=== PATIENT | male | born 1960 | race Caucasian/White ===

== ENCOUNTER 2016-07-30 13:39 | Inpatient (IN) | payer OTHER ==
[~2016-07-30] VITALS: Ht 180.3 cm; Wt 84.1 kg
[2016-07-30 13:43] VITALS: BP 136/89; PULSE 114; RESP 18; O2SAT 100
--- NOTE | 2016-07-30 15:09 | ED.REPORT ---
HPI-General Illness Date of Service Jul 30, 2016 ED Provider: Dr. Ricky Torres M.D. The patient is a 56 year old male with a history of diabetes, hypertension, hepatitis C, CAD, CHF, and polysubstance abuse s/p recent right toe amputations who presents to the ED with an open right foot surgical wound onset 2.5 weeks ago. The patient was recently admitted to [facility] on 07/10/16 with osteomyelitis and gangrene of his right toes. On 07/12 he underwent amputation of his right 2nd and 3rd toes and then had two subsequent surgeries for debridement and irrigation. Four days ago the patient left AMA from [facility] with his wound still open, due to a conflict with the infectious disease doctor there. [facility] and was referred here to the ED. The patient currently reports "sharp" pain at the surgical wound rated "11/10" at worst, without radiation, relieved with rest. He denies fever, chills, chest pain, SOB, nausea, vomiting, abdominal pain, hematochezia, hematuria, SI, HI, hallucinations, or other symptoms. The patient has been drinking alcohol and using methamphetamines "to control the pain" since he left the hospital. His last alcohol drink and methamphetamine use was last night. Nursing Notes Stated Complaint: FOOT WOUND Chief Complaint: Extremity Trauma Nursing Notes Reviewed: Yes Allergies: Coded Allergies: codeine (Verified Adverse Reaction, Unknown, 07/30/16) Scheduled Amiodarone (Amiodarone) 200 Mg Tablet 200 MG PO QAM Apixaban (Eliquis) 5 Mg Tablet 5 MG PO BID Aspirin Chew (Aspirin Chew) 81 Mg Chew 81 MG PO QAM Carvedilol (Carvedilol) 3.125 Mg Tablet 3.125 MG PO BID Digoxin (Digoxin) 125 Mcg Tablet 125 MCG PO QAM Famotidine (Famotidine) 20 Mg Tablet 20 MG PO BIDWM Furosemide (Furosemide) 40 Mg Tablet 40 MG PO QAM Glipizide (Glipizide) 5 Mg Tablet 5 MG PO DAILYWM Hydralazine (Hydralazine) 25 Mg Tablet 25 MG PO TID Isosorbide DN (Isosorbide DN) 10 Mg Tablet 10 MG PO TID Lisinopril (Lisinopril) 20 Mg Tablet 20 MG PO QAM Lovastatin (Lovastatin) 40 Mg Tablet 40 MG PO HS Metformin (Glucophage) 1,000 Mg Tablet 1,000 MG PO BIDWM Olanzapine ODT (Olanzapine ODT) 5 Mg Tablet 5 MG PO HS Polyethylene Glycol 3350 (Polyethylene Glycol 3350) 17 Gm Powd.pack 17 GM PO QAM Potassium Chloride (Potassium Chloride) 20 Meq/15 Ml Liquid 20 MEQ PO QAM Sennosides/Docusate Sodium (Senna-Docusate Sodium Tablet) 1 Each Tablet 1 EACH PO BID Spironolactone (Spironolactone) 25 Mg Tablet 25 MG PO QAM Scheduled PRN Acetaminophen (Acetaminophen) 325 Mg Tablet 650 MG PO Q4H PRN PRN For Fever Albuterol HFA (Proair HFA) 8.5 Gm Hfa.aer.ad 6-8 PUFFS INHALATION Q2H PRN PRN For Shortness of Breath Bisacodyl (Dulcolax Rectal) 10 Mg Supp.rect 10 MG RC DAILY PRN PRN For Constipation Dextran 70/Hypromellose/Pf (Artificial Tears Drops) 1 Each Droperette 1 DROP BOTH_EYES QID PRN PRN DRY EYES Dextrose (Glucose) 4 Gm Tab.chew 4 GM PO ASDIRECTED PRN PRN HYPOGLYCEMIA Insulin Human Lispro (HumaLOG U100 Insulin Vial) 100 Unit/Ml Unit 3-6 UNIT SUBQ TIDWM PRN PRN HYPERGLYCEMIA Check blood sugars before meals and at bedtime. Use correction factor only before meals. Blood Sugar Lispro Correction: <151, 0 units; 151-175, 1 unit; 176-200, 2 units; 201-225, 3 units; 226-250, 4 units; 251-275, 5 units; 276-300 , 6 units; 301-325, 7 units; 326-350, 8 units; 351-375, 9 units; 376-400, 10 units; >400, 12 units. Melatonin (Melatonin) 5 Mg Tablet 5 MG PO HS PRN PRN For Insomnia Nicotine 21 mg/24 hr Patch (Nicotine 21 mg/24 hr Patch) 1 Each Patch.dysq 1 PATCH TRANSDERM DAILY PRN PRN For Withdrawal Symptoms Nystatin (Nystatin) 15 Gm Powder 1 APPLIC TP QID PRN PRN RASH Olanzapine ODT (Olanzapine ODT) 5 Mg Tablet 5 MG PO Q6H PRN PRN For Anxiety or Agitation General Time Seen by MD: 15:08 Chief Complaint Other (Right Foot Wound) Hx Obtained From: Patient Arrived By: Walk-in Sudden in Onset?: No Onset Occurred: More than a week ago... (2.5 weeks ago) Symptom Duration: Since onset Location: : Foot right Quality: Painful, Sharp Severity: Current: Moderate Severity: Maximum: Severe Pertinent Negative: Relieved by nothing Context Related History: Reports Coronary artery disease, Reports Diabetes mellitus, Reports Drug use/abuse suspected Recent Healthcare: Recent hospitalization, Previous surgery Past Medical History Past Medical History Diabetes Mellitus Hepatitis C CAD Polysubstance abuse Systolic CHF Atrial flutter Hypertension Past Surgical History Right 2nd and 3rd toe amputations Mandible fracture surgery Hernia repair Family History Heart failure and diabetes Smoking History Current Every Day Smoker Social History Prior alcohol abuse Drug Use: Meth Other Social History: From out of [facility] ([place] Ambulatory Status Independent Review of Systems + Right foot wound Full Review of Systems Constitutional: Denies: Chills, Fever Respiratory: Denies: Shortness of breath Cardiovascular: Denies: Chest pain GI: Denies: Constipation, Diarrhea, Hematochezia, Nausea, Vomiting Male: Denies Hematuria Musculoskeletal: Reports: Extremity pain (Right Foot) Psychiatric: Denies: Hallucinations, auditory, Hallucinations, visual, Homicidal ideation, Suicidal ideation Complete sys rev & neg: except as marked. Physical Exam Constitutional: Disheveled, though nontoxic appearing. Not diaphoretic. Head: Normocephalic and atraumatic. Mouth/Throat: Oropharynx is clear and moist. No oropharyngeal exudate. Eyes: EOM are normal. Pupils are equal, round, and reactive to light. Neck: Supple, no tracheal deviation. Cardiovascular: Tachycardic. Regular rhythm. II/ systolic murmur. Equal and intact distal pulses throughout. Pulmonary/Chest: Effort normal and breath sounds normal. No respiratory distress. Abdominal: Soft. No distension. There is no tenderness, rebound, or guarding. Neurological: AOx3. Grossly nonfocal exam. Strength and sensation intact and equal to bilateral upper and lower extremities. Vital Signs Vital Signs Date Time Temp Pulse Resp B/P Pulse Ox O2 Delivery O2 Flow Rate FiO2 07/30/16 19:15 36.8 108 133/92 95 Room Air 07/30/16 16:20 36.9 108 131/90 97 Room Air 07/30/16 13:43 35.8 114 18 136/89 100 Room Air Initial VS: Reviewed Lower Extremity / Pelvis / MS: Neurologic intact, Vascular intact Obvious open wound to dorsum of right foot extending to where the 2nd and 3rd toes would be Some necrotic tissue present Mild amount of surrounding erythema without streaking up the leg Trace pitting edema bilateral lower extremities Skin: Warm, Dry Psychiatric: Not suicidal, Not homicidal, No hallucinations Interpretation & Diagnostics Bedside Blood Glucose at 15:25 292 mg/dl (80-150) H Lab Results Interpretation Result Diagram: 07/30/16 1623 07/30/16 1623 Test 07/30/16 16:23 White Blood Count 12.6th/mm3 (3.8-10.1) Red Blood Count 4.11mil/mm3 (4.40-5.80) Hemoglobin 11.3g/dL (13.8-17.2) Hematocrit 34.1% (41.0-50.0) Mean Corpuscular Volume 83.0fL (81-100) Mean Corpuscular Hemoglobin 27.5pg (27.0-35.0) Mean Corpuscular Hemoglobin Concent 33.1% (32.0-37.0) Red Cell Distribution Width 17.1% (12.3-15.4) Platelet Count 280bil/L (150-400) Neutrophils (%) (Auto) 66.1% (40-74) Lymphocytes (%) (Auto) 20.6% (14-46) Monocytes (%) (Auto) 8.1% (4-12) Eosinophils (%) (Auto) 4.6% (0-5) Basophils (%) (Auto) 0.3% (0-3) Erythrocyte Sedimentation Rate 41mm/hr (0-30) Prothrombin Time 10.0sec (8.1-12.5) Prothromb Time International Ratio 0.94ratio Activated Partial Thromboplast Time 27.7sec (22.8-33.0) Sodium Level 132mEq/L (134-144) Potassium Level 3.6mEq/L (3.5-5.2) Chloride Level 98mEq/L (97-108) Carbon Dioxide Level 22mmol/L (18-29) Blood Urea Nitrogen 11mg/dL (6-24) Creatinine 0.60mg/dL (0.76-1.27) Estimat Glomerular Filtration Rate 148mL/min (>59) Glucose Level 307mg/dL (60-99) Lactic Acid Level 1.5mmol/L (0.4-2.0) Calcium Level 10.0mg/dL (8.5-10.1) Phosphorus Level 2.5mg/dL (2.5-4.9) Magnesium Level 1.5mg/dL (1.6-2.6) Total Bilirubin 0.4mg/dL (0.0-1.2) Aspartate Amino Transf (AST/SGOT) 38U/L (0-50) Alanine Aminotransferase (ALT/SGPT) 24U/L (0-44) Alkaline Phosphatase 154U/L (25-150) Troponin T 0.302ug/L (0.0-0.011) C-Reactive Protein 1.3mg/dL (0.0-0.5) Total Protein 7.2g/dL (6.4-8.4) Albumin 3.3g/dL (3.4-5.0) Lipase 53U/L (13-60) ECG Interpretation ECG Interpretation: Sinus tachycardia rate 107 Nonspecific repol abnormality, diffuse leads Flattened T-waves leads V4 - V6 Time: 16:28 Interpreted by: ED physician X-Ray Interpretation Xray Interpretation: IMPRESSION: 1. A small linear metallic foreign body in the great toe. 2. Amputation of the second third toes. 3. Radiographs are not sensitive for early phase of osteomyelitis. If there is high clinical suspicion for osteomyelitis, a triple phase bone scan is suggested for further evaluation. Dictated by: Ryland Bone M.D. on 07/30/2016 at 16:14 Study Performed: 3 View X-Ray Ordered: Foot right Interpretation / Wet Read by: Interpret - Radiologist Re-Eval/Medical Decision Med Decision/Clinical Course In summary, 56-year-old male with a complex past medical history including hepatitis C, coronary disease, CHF, diabetes, and recently diagnosed osteomyelitis of the right foot in the setting of amputation of the second and third toes presenting to the ED for evaluation of pain to his right foot and concerned that his wound is not healing. He recently left AMA from [facility] in [place] while undergoing treatment for these problems. Upon arrival here, patient is afebrile, nontoxic appearing. No systemic symptoms would suggest hematogenous spread for now, however presumably he has only partially treated this infection. Started on broad spectrum abx in the ED. labs above, reviewed troponin is elevated, however patient has no chest pain, no shortness of breath, no chest pressure and his most recent troponin at [facility] in [place] was higher than this one. EKG does have some T-wave abnormalities, however given the absence of symptoms and the lower level, suspect that there is some level of demand present here; having said that, these will need to be trended and reassessed. Consults as per below; appreciate recs. Will admit for further eval and mgmt. patient agreeable to the plan as stated, no further questions. Source of Hx: Old records Time of Eval: 15:45 Patient Status: Condition improved Re-Evaluation/Progress Note: Discussed with patient physical exam findigns, diagnosis, and plan for labs, x-ray, and admit. Patient agrees with plan for care and all questions were addressed. Consultation #1: Referral / Consult Name: David Kimble DO Consulted With: Orthopedic Call Returned at: 16:05 Fabric Pattern Grader: Referred to other consult (Podiatry and/or Surgery) Consultation #2: Referral / Consult Name: Phoebe Vaz DPM Call Returned at: 16:09 Fabric Pattern Grader: Agrees with eval, Agrees with plan Note: Podiatry: Will consult Consultation #3: Referral / Consult Name: Gary Rankin MD Consulted With: Hospitalist Call Returned at: 19:05 Fabric Pattern Grader: Agrees with eval, Agrees with plan, Accepts admit Counseled Regarding: Diagnosis, Need for admission Discharge & Departure Primary Impression: Osteomyelitis of right foot Osteomyelitis type: other acute Qualified Code: M86.171 - Other acute osteomyelitis, right ankle and foot Additional Impression: NSTEMI (non-ST elevation myocardial infarction) Disposition: ADMITTED TO HOSPITAL Discharge Condition All VS Reviewed: Yes Condition: Improved Referrals: Deric White MD (PCP) Scribe Attestation Portions of this note were transcribed by Bettina Downs. I, Dr. Torres, personally performed the history, physical exam, and medical decision-making; I reviewed and confirmed the accuracy of the information in the transcribed note. Signed by: Claudine Barillas, 07/30/2016, 19:55 copies to: Deric White MD, William B MD Jul 30, 2016 15:09 BETTINA DOWNS Jul 30, 2016 15:19
[2016-07-30] MEDS ORDERED: 0.9% Sodium Chloride 1,000 ML IV ONE (15:44)
--- NOTE | 2016-07-30 16:18 | DRSVH ---
PROCEDURE: X-RAY RIGHT FOOT COMPLETE, MINIMUM THREE VIEWS ([id number]) INDICATIONS: hx of osteo eval for similar, other abnl TECHNIQUE: 3 views of the foot were acquired. COMPARISON: None. FINDINGS: Bones: Note is made of amputation of the second and third toe across the mid metatarsals. No fractur es or dislocations. No suspicious bony lesions. Soft tissues: No tibiotalar joint effusion. Achilles tendon appears normal. There is a small linea r metallic from body in the distal great toe. IMPRESSION: 1. A small linear metallic foreign body in the great toe. 2. Amputation of the second third toes. 3. Radiographs are not sensitive for early phase of osteomyelitis. If there is high clinical suspicio n for osteomyelitis, a triple phase bone scan is suggested for further evaluation. Dictated by: Ryland Bone M.D. on 07/30/2016 at 16:14 Approved by: Ryland Bone M.D. on 07/30/2016 at 16:16
[2016-07-30 16:20] VITALS: BP 131/90; PULSE 108; O2SAT 97
[2016-07-30 16:40] LABS: BASOPHILS % (AUTO) 0.3 % (0-3); EOSINOPHILS % (AUTO) 4.6 % (0-5); MONOCYTES % (AUTO) 8.1 % (4-12); Mean Corpuscular Hemoglobin 27.5 pg (27.0-35.0); NEUTROPHILS % (AUTO) 66.1 % (40-74); Platelet Count 280 bil/L (150-400)
[2016-07-30 16:58] LABS: INR 0.94 ratio
[2016-07-30 17:18] LABS: ERYTHROCYTE SEDIMENTATION RATE 41 mm/hr (0-30); TROPONIN T 0.302 ug/L (0.0-0.011)
[2016-07-30 17:19] LABS: Magnesium 1.5 mg/dL (1.6-2.6); Phosphorus 2.5 mg/dL (2.5-4.9)
[2016-07-30] MEDS ORDERED: METF1000 PO (18:29)
[2016-07-30] MEDS ORDERED: DEXT4TAB PO (18:29)
[2016-07-30] MEDS ORDERED: CARV3.122 PO (18:29)
[2016-07-30] MEDS ORDERED: NYST15PO5 TP (18:29)
[2016-07-30] MEDS ORDERED: GLPZ5T PO (18:29)
[2016-07-30] MEDS ORDERED: LISI-567 PO (18:29)
[2016-07-30] MEDS ORDERED: ISOS10TA2 PO (18:29)
[2016-07-30] MEDS ORDERED: AMIO200T PO (18:29)
[2016-07-30] MEDS ORDERED: ASPI81TA3 PO (18:29)
[2016-07-30] MEDS ORDERED: SENN1TAB90 PO (18:29)
[2016-07-30] MEDS ORDERED: POTA20LI2 PO (18:29)
[2016-07-30] MEDS ORDERED: SPIR25TA3 PO (18:29)
[2016-07-30] MEDS ORDERED: ACET325T51 PO (18:29)
[2016-07-30] MEDS ORDERED: INSLIS SUBQ (18:29)
[2016-07-30] MEDS ORDERED: DIGO125T73 PO (18:29)
[2016-07-30] MEDS ORDERED: BISA10SU61 RC (18:29)
[2016-07-30] MEDS ORDERED: FAMO20TA4 PO (18:29)
[2016-07-30] MEDS ORDERED: OLAN5TAB39 PO ×2 (18:29)
[2016-07-30] MEDS ORDERED: FURO40TA4 PO (18:29)
[2016-07-30] MEDS ORDERED: APIX5TAB PO (18:29)
[2016-07-30] MEDS ORDERED: POLY17PO2 PO (18:29)
[2016-07-30] MEDS ORDERED: LOVA40TA PO (18:29)
[2016-07-30] MEDS ORDERED: ALBU8.5H2 INHALATION (18:29)
[2016-07-30] MEDS ORDERED: HYDR-3939 PO (18:29)
[2016-07-30] MEDS ORDERED: DEXT1DRO8 BOTH_EYES (18:29)
[2016-07-30] MEDS ORDERED: Ketorolac 15 mg/mL Inj IVPUSH ONE (18:35)
[2016-07-30] MEDS ORDERED: NICO1PAT16 TRANSDERM (18:37)
[2016-07-30] MEDS ORDERED: MELA1TAB16 PO (18:37)
[2016-07-30] MEDS ORDERED: MELA5TAB14 PO (18:38)
[2016-07-30] MEDS ORDERED: Piperacillin-Tazo 3.375 Gm Inj 3.375 GM in Dextrose 5% Minibag Plus 50 ML IV ONE (19:10)
[2016-07-30] MEDS ORDERED: metroNIDAZOLE Inj 500 MG in IV Premix 1 EACH IV ONE (19:10)
[2016-07-30] MEDS ORDERED: Vancomycin Dose per Pharmacist XX ONE ×2 (19:10→20:15)
[2016-07-30 19:15] VITALS: BP 133/92; PULSE 108; O2SAT 95
[2016-07-30] MEDS ORDERED: Vancomycin Inj 1,500 MG in 0.9% Sodium Chloride 500 ML IV ONE (19:20)
[2016-07-30] MEDS ORDERED: 0.9% Sodium Chloride 1,000 ML IV SCH (20:13)
[2016-07-30] MEDS ORDERED: Polyethylene Glycol (PEG) 17 Gm Powder PO PRN (20:15)
[2016-07-30] MEDS ORDERED: Glucose 40% Oral Gel 15 Gm Tube PO PRN (20:15)
[2016-07-30] MEDS ORDERED: Alum-Mag Hydrox-Simeth 30 mL Suspension PO PRN (20:15)
[2016-07-30] MEDS ORDERED: Dextrose 5% 0.9% NaCl 250 ML in IV Bag 1 EACH IV ONE (20:15)
[2016-07-30] MEDS ORDERED: [UNRECOGNIZED DRUG - OTHER] PO PRN (20:45)
[2016-07-30] MEDS ORDERED: DEXTROSE 4 GM PO PRN (20:45)
[2016-07-30] MEDS ORDERED: OLANZapine Zydis ODT 5 mg Tablet PO PRN (20:45)
[2016-07-30] MEDS ORDERED: Artificial Tears 15 mL Ophthalmic Solution BOTH_EYES PRN (21:00)
[2016-07-30] MEDS ORDERED: Insulin GLARgine 100 Unit/mL Syringe SUBQ SCH (21:00)
--- NOTE | 2016-07-30 21:05 | PCM.HPMED ---
Subjective Date of Service Jul 30, 2016 Primary Provider: Admitting Physician: Gary Rankin MD Primary Care Physician: Deric White MD Attending Physician: Gary Rankin MD Chief Complaint: Right foot surgical wound infection History of Present Illness: Patient is a 56-year-old gentleman with history of coronary artery disease, diabetes mellitus, hepatitis C, polysubstance abuse. He is status post recent amputation of right second and third right toes, he was admitted to [facility] on 07/10/2016 the diagnosis of osteomyelitis and gangrene of said toes. He claims the infection started after he was working on a wood floor in a house that was contaminated with asbestos and began a blister he had them on both feet once on his left foot went away but the ones on his right foot just started draining and getting worse. 4 days ago he left AMA from [facility] with wound still open, stating that there was a conflict with one of the physicians there regarding his pain management he said he thought that he was being terrorized they were trying to kill him. [facility], currently he describes the pain is sharp, and his right foot, referring up into his leg, 11 out of 10, worst pain he ever felt "I have never been afraid of anything in my life but this is scaring me" he denies any fevers, chills, chest pain, shortness of breath, N/VD, states he does get some lightheadedness and some dizziness when he tries ambulating on his foot. No suicidal or homicidal ideations, denies hallucinations. States he last used methamphetamines early this morning to control the pain as well as drinking copious amounts of alcohol. In the emergency department breathalyzer was 0.00. 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 During his hospitalization he underwent right heart catheterization, underwent LYNN did not show any vegetations, was placed on amiodarone for atrial flutter, is significantly hyponatremic, and described as being a poor historian. LISETTE were performed of bilateral lower extremities, right was found to be within normal limits, left LISETTE was mildly abnormal, with left toe brachial index within normal limits. Presenting vitals to the emergency department showed a temperature of 35.8 Celsius, heart rate 114, 18 respirations per minute, blood pressure 136/89, pulse ox 100% on room air. White blood cells 12.6, hemoglobin 11.3 CMP: Sodium 132 l, blood glucose 307 Lactic acid 1.5 Troponin 0.302 CRP 1.3, ESR 41 EKG showed sinus tachycardia, QTC 454. ST depression in leads V4 through V6. Plain radiographs were performed, small linear metallic foreign body in great toe, recommended "triple phase bone scan for further evaluation" Patient was discussed with Dr. Phoebe Vaz DPM, who agreed to accept the patient for surgical evaluation of osteomyelitis. Wound cultures showed few coliform gram-negative bacilli, many staph aureus, moderate enterococcus species, rare pseudomonas aeruginosa, moderate presumptive Proventil species, many anaerobic gram-positive cocci, few white blood cells, many gram-positive cocci in pairs and clusters, few gram-positive. Sensitivities are on page 57 of 62 of hospital chart. Review of Abx showed he was on Vancomycin and Zosyn. Review of Systems: A comprehensive review of systems was conducted with the patient and found to be negative except as above in the history of present illness. Allergies Coded Allergies: codeine (Verified Adverse Reaction, Unknown, 07/30/16) Home Medications Scheduled Amiodarone (Amiodarone) 200 Mg Tablet 200 MG PO QAM Apixaban (Eliquis) 5 Mg Tablet 5 MG PO BID Aspirin Chew (Aspirin Chew) 81 Mg Chew 81 MG PO QAM Carvedilol (Carvedilol) 3.125 Mg Tablet 3.125 MG PO BID Digoxin (Digoxin) 125 Mcg Tablet 125 MCG PO QAM Famotidine (Famotidine) 20 Mg Tablet 20 MG PO BIDWM Furosemide (Furosemide) 40 Mg Tablet 40 MG PO QAM Glipizide (Glipizide) 5 Mg Tablet 5 MG PO DAILYWM Hydralazine (Hydralazine) 25 Mg Tablet 25 MG PO TID Isosorbide DN (Isosorbide DN) 10 Mg Tablet 10 MG PO TID Lisinopril (Lisinopril) 20 Mg Tablet 20 MG PO QAM Lovastatin (Lovastatin) 40 Mg Tablet 40 MG PO HS Metformin (Glucophage) 1,000 Mg Tablet 1,000 MG PO BIDWM Olanzapine ODT (Olanzapine ODT) 5 Mg Tablet 5 MG PO HS Polyethylene Glycol 3350 (Polyethylene Glycol 3350) 17 Gm Powd.pack 17 GM PO QAM Potassium Chloride (Potassium Chloride) 20 Meq/15 Ml Liquid 20 MEQ PO QAM Sennosides/Docusate Sodium (Senna-Docusate Sodium Tablet) 1 Each Tablet 1 EACH PO BID Spironolactone (Spironolactone) 25 Mg Tablet 25 MG PO QAM Scheduled PRN Acetaminophen (Acetaminophen) 325 Mg Tablet 650 MG PO Q4H PRN PRN For Fever Albuterol HFA (Proair HFA) 8.5 Gm Hfa.aer.ad 6-8 PUFFS INHALATION Q2H PRN PRN For Shortness of Breath Bisacodyl (Dulcolax Rectal) 10 Mg Supp.rect 10 MG RC DAILY PRN PRN For Constipation Dextran 70/Hypromellose/Pf (Artificial Tears Drops) 1 Each Droperette 1 DROP BOTH_EYES QID PRN PRN DRY EYES Dextrose (Glucose) 4 Gm Tab.chew 4 GM PO ASDIRECTED PRN PRN HYPOGLYCEMIA Insulin Human Lispro (HumaLOG U100 Insulin Vial) 100 Unit/Ml Unit 3-6 UNIT SUBQ TIDWM PRN PRN HYPERGLYCEMIA Check blood sugars before meals and at bedtime. Use correction factor only before meals. Blood Sugar Lispro Correction: <151, 0 units; 151-175, 1 unit; 176-200, 2 units; 201-225, 3 units; 226-250, 4 units; 251-275, 5 units; 276-300 , 6 units; 301-325, 7 units; 326-350, 8 units; 351-375, 9 units; 376-400, 10 units; >400, 12 units. 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 Family History Mother's side has heart problems, father side has diabetes, both parents are . Sister had diabetes and from overdose. 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 HEENT: Normocephalic, atraumatic, EOMI grossly, pupil smaller than anticipated from the right, but reactive to light and equal. Poor dentition, false teeth, uppers. Neck is supple without lymphadenopathy. Mucous membranes are moist. Cardiovascular: Tachycardic, regular rhythm, no clicks murmurs rubs, peripheral pulses 2/4 equal bilaterally radial and dorsal pedalis Pulmonary: Clear to auscultation bilaterally, no W/R/R. Abdominal: Soft to palpation, bowel sounds present 4, no hepatosplenomegaly. Negative rebound. Extremities: Right lower extremity is warm and red below the knee, second and third toes surgically removed, there is an open draining wound, numerous other wounds over the dorsal and lateral aspects of the foot. No cords, no black, no obvious foul smell. Neuro: Neurologically grossly intact, strength is equal bilaterally upper and lower extremities. MSK: Able to move extremities on their own volition, strength 5 out of 5 equal bilaterally to upper and lower extremities. Psych: Alert and oriented to person place and time and situation Lab and Diagnostics Result Diagram: 07/30/16 1623 07/30/16 1623 X-Rays, CTs and MRIs Right foot x-ray performed 07/30/2016 IMPRESSION: 1. A small linear metallic foreign body in the great toe. 2. Amputation of the second third toes. 3. Radiographs are not sensitive for early phase of osteomyelitis. If there is high clinical suspicion for osteomyelitis, a triple phase bone scan is suggested for further evaluation. Dictated by: Ryland Bone M.D. on 07/30/2016 at 16:14 12-lead ECG Sinus tachycardia, rate 107, QTC 454, "nonspecific repol abnormality." ST depression T-wave flattening in leads V4 through V6. Cardiac Echo Impressions Echo report from [facility] performed 07/11/2016 Conclusions "Mild LVH and mild LV dilation with severe global LV dysfunction EF 20% Mild RV dilation with moderate RV dysfunction Trace mitral, aortic, tricuspid, pulmonic regurgitation." Full report can be found on page 45 of 62 [facility] records on paper chart. 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 #Acute Sepsis, present on admission, treatment ongoing -White count 12.6 heart rate 114, temperature 35.8, source identified as right foot surgical wound with probable osteomyelitis. -Repeat CBC in the a.m., -LA 1.5, -Blood cultures 2 pending -Normal saline 125 mL per hour -Vancomycin dose by pharmacy and Zosyn 3.375 every 8 hours IV #Chronic Osteomyelitis, present on admission, treatment ongoing -Previously identified at [facility] in [place], did not complete antibiotics and left AMA. Plain films read and additional imaging was recommended. -Antibiotics as above -Podiatry consulted, we appreciate their input and recommendations -Pain management with Dilaudid IV. Start 0.5 mg to 1.0 mg, may increase to 1-2 mg each not being opioid anderson. -Infectious disease consultation Non ST elevation Myocardial infarction. Present on admission Patient was treated for this during his hospitalization at [facility] as well - trending troponin - continue Heparin drip - continue Aspirin for antiplatelet therapy - consider Cardiology consult in the morning #Chronic systolic congestive heart failure with compensation, present on admission, treatment restarted. Stable Echocardiogram from [facility] states EF of 20%, with compensation. Troponin today was elevated 0.3, this appears to be a trend as it remained elevated and [facility] hospitalization over weeks. -Restart carvedilol -Patient has not been anticoagulated, starting with heparin bolus and heparin drip -Transfer to [facility]. -Placed on telemetry -Cardiology consultation -Trend troponins daily #Chronic Uncontrolled diabetes mellitus, not insulin using, present on admission -Serum glucose was 307. -Hospital records from 2-3 weeks ago states she was on 10 units of glargine at bedtime, will restart -Medium dose correctional insulin scale -Check A1c -Diabetes education -Lisinopril restarted #Chronic Polysubstance abuse, present on admission, treatment initiated. States he last used methamphetamines, smoked, earlier this morning before presentation to the emergency department for pain control. Avoid central lines of possible - Clonidine 0.1mg TID PRN for withdraw Symptoms. #Chronic tobacco abuse and dependence, present on admission, treatment initiated. - Tobacco cessation education - Nicotine transdermal patches. Pain management IV Dilaudid DVT prophylaxis: Heparin drip until anticoagulated bridge to warfarin Bowel regimen as needed Patient admitted under inpatient status with expected length of stay > 2 midnights for severity of present symptoms, complexities of treatment plan and risk for adverse events. Pain Evaluation: Pain not Controlled GI Prophylaxis: Not indicated VTE Prophylaxis: Other (heparin drip) Resuscitation Status: CPR: Attempt Resuscitation Attending Statement The patient was seen and examined together with Dr. Herndon on 07/30 and I agree with the history, exam and plan as outlined in the note above. Reddy Rich DO Jul 30, 2016 21:05 Gary Rankin MD Jul 30, 2016 23:34
[2016-07-30] MEDS ORDERED: Heparin 5,000 Unit/mL Inj IVPUSH ONE (21:10)
[2016-07-30] MEDS ORDERED: Heparin 25K Unit/500mL 0.45 NS 25,000 UNIT in IV Premix 1 EACH IV SCH (21:10)
[2016-07-30] MEDS ORDERED: Heparin 5,000 Unit/mL Inj IVPUSH PRN (21:10)
[2016-07-30 21:15] VITALS: BP 122/77; PULSE 109; RESP 16; O2SAT 97
[2016-07-30] MEDS ORDERED: HYDROmorphone 0.5 mg/0.5 mL iSecure Syringe IVPUSH PRN (21:15)
[2016-07-30 22:28] VITALS: BP 135/89; PULSE 113; RESP 20; O2SAT 92
[2016-07-30 22:35] VITALS: PULSE 111
--- NOTE | 2016-07-30 22:35 | NUR ---
Admit to 1007 Pt arrived to unit shortly after 2100, alert and able to make needs known. Md decided to transfer pt to 2012. Admission completed. Vitals stable, will defer placement on tele until moved. Pt c/o pain in foot, willing to wait until moved upstairs for medication. Has not voided. Report given to GAYE Vazquez and pt transferred upstairs in approximately one hour from arrival.
[2016-07-30] MEDS: 0.9% Sodium Chloride 1,000 ML IV SCH (22:39)
[2016-07-30] MEDS: Multivit-Miner-Folic Acid-Iron Tablet PO SCH (22:53)
[2016-07-30] MEDS: Polyethylene Glycol (PEG) 17 Gm Powder PO SCH (22:54)
[2016-07-30] MEDS: OLANZapine Zydis ODT 5 mg Tablet PO SCH (22:54)
[2016-07-30] MEDS: Insulin LISPRO 300 Unit/3 mL Inj SUBQ SCH (23:37)
[2016-07-31] VITALS (11 sets, daily range): BP systolic 93–120; BP diastolic 56–99; PULSE 87–120; RESP 13–30; O2SAT 84–97
[2016-07-31] MEDS: Sodium Chloride LOK Flush 10 mL Syringe IVFLUSH SCH ×8 (00:13→23:43)
[2016-07-31] MEDS ORDERED: Heparin 5,000 Unit/mL Inj SUBQ SCH (00:30)
[2016-07-31] MEDS ORDERED: Magnesium Sulf 2 Gm/50mL Water 2 GM in IV Premix 1 EACH IV ONE (00:35)
[2016-07-31] MEDS: Piperacillin-Tazo 3.375 Gm Inj 3.375 GM in Dextrose 5% Minibag Plus 50 ML IV SCH ×4 (01:00→23:56)
[2016-07-31] MEDS: 0.9% Sodium Chloride 1,000 ML IV SCH ×2 (04:13→11:06)
[2016-07-31] MEDS ORDERED: Vancomycin Inj 1,000 MG in IV Premix 1 EACH IV SCH (05:00)
[2016-07-31 05:04] LABS: BASOPHILS % (AUTO) 0.4 % (0-3); EOSINOPHILS % (AUTO) 5.6 % (0-5); MONOCYTES % (AUTO) 7.6 % (4-12); Mean Corpuscular Hemoglobin 27.9 pg (27.0-35.0); Mean Corpuscular Volume 84.7 fL (81-100); NEUTROPHILS % (AUTO) 68.8 % (40-74); Platelet Count 289 bil/L (150-400)
--- NOTE | 2016-07-31 05:38 | PCM.CONPHA ---
Subjective Date of Service: Jul 30, 2016 Requesting Provider: Reddy Rich DO Right foot surgical wound infection History of Present Illness osteomyelitis of right foot (toes) Reason for Pharmacy Consult: Vancomycin Dosing Objective Assessment/Plan Assessment/Plan A/ - 56 y/o male patient required Vancomycin to treat osteomyelitis. He was first treated with Vancomycin and Zosyn at [facility] in [place] in 07/10 but left AMA 4 days ago. Discharge note from [facility] shoed positive Group C strep bacteremia. Patient has hx of uncontrolled DM, polysubstance abuse , hepatitis C, drug induced cardiomyopathy, and acute on chronic systolic CHF - Case discussed with Dr. Vaz, also cardiology and ID consult requested - Afebrile, WBC: 12.6, blood cultures (x2) pending - In ED, patient received loading dose Vancomycin 1500mg iv, along with Flagyl iv, and Zosyn - Wt: 84 kg, ht: 180cm, SCr: 0.6 mg/dL, estimated clearance > 150ml/min ( Global RPh), t1/2~5 hrs, Vd: 59 L, BMI: 25.5 kg/m2 P/ - Continue Vancomycin 1G iv q6h. Trough level ordered before 4th dose @1630 today. This regimen would produce a trough between 15-20 Pharmacy will follow and make necessary adjustment. Thank you for consulting clinical pharmacy in the care of this patient Kendall Moreno Jul 31, 2016 05:38
--- NOTE | 2016-07-31 05:39 | NUR ---
Transfer / Resp / UO Patient arrived to room 2012, able to self transfer from [facility] bed to P[facility] bed by sliding. Patient arrives with a suitcase and a large bag of belongings. Belongings waiver was already signed. Belongings placed in closet except for his phone which he has in bed with him. Heparin gtt is started, IVF are started, AB are given. Patient updated on plan of care and oriented to the room. Patient found to have SpO2 in the 70s during german professor vital sign check. SpO2 monitor applied. Patient is tachycardic, has increased RR, has red blotchy skin. He is cold, tremulous, and given multiple blankets for comfort. Attempted to place oxygen while patient was sleeping after he started to desaturate but I am unable to do this without waking him. He wakes up angry and yelling, continuing to refuse oxygen. SpO2 currently 87-88%. Continuous pulse ox in place at this time. MD notified and updated on patient condition, aware of the care that patient is refusing. Patient has no urine output since leaving the ER. Patient refuses to attempt to use the urinal and refuses to be bladder scanned. MD notified. When patient arrived to the floor he rates his pain at a 11/10. IV Dilaudid administered and patient is able to fall asleep after this dose. He continues to sleep the rest of the night without requesting any further doses of pain medication.
[2016-07-31] MEDS ORDERED: cloNIDine 0.1 mg Tablet PO PRN (05:45)
[2016-07-31] MEDS ORDERED: Albuterol 2.5 mg/3 mL Inhalation Solution NEB PRN (07:00)
[2016-07-31] MEDS ORDERED: Vancomycin Dose per Pharmacist XX SCH (08:30)
[2016-07-31] MEDS: Polyethylene Glycol (PEG) 17 Gm Powder PO SCH (08:30)
[2016-07-31] MEDS ORDERED: HYDROmorphone 0.5 mg/0.5 mL iSecure Syringe IVPUSH PRN (08:30)
[2016-07-31] MEDS: Multivit-Miner-Folic Acid-Iron Tablet PO SCH (08:47)
[2016-07-31] MEDS: Potassium Chloride 20 mEq/15 mL 15mL Oral Soln PO SCH (08:48)
[2016-07-31] MEDS: Insulin LISPRO 300 Unit/3 mL Inj SUBQ SCH ×4 (08:49→20:22)
[2016-07-31 10:02] LABS: APPEARANCE,URINE CLEAR (CLEAR,HAZY); COLOR,URINE YELLOW (YELLOW)
[2016-07-31 10:03] LABS: OCCULT BLOOD,URINE TRACE (NEGATIVE); UROBILINOGEN,URINE NORMAL (NORMAL)
--- NOTE | 2016-07-31 10:24 | CONS ---
[address] [address] CONSULTATION REPORT PATIENT: ROCIO MCKEON : 1960 MR#: [id number] ADMIT: 07/30/2016 JOB ID: [id number] DATE OF SERVICE: 07/31/[address] Vaz for this timely consult. REASON FOR CONSULTATION: Right foot osteomyelitis with cellulitis and extensive forefoot infection in a complex diabetic patient. HISTORY OF PRESENT ILLNESS: The patient is an unfortunate 56-year-old gentleman with longstanding history of multiple overlapping severe medical problems. He is known to have cardiomyopathy with a very poor ejection fraction, untreated hepatitis C, poorly controlled diabetes with neuropathy and a history of polysubstance abuse. Back in the spring of this year he was admitted to the hospital in [facility] with group C strep bacteremia and decompensated congestive heart failure. A LYNN was negative, and he was treated appropriately and discharged after that admission. On July 10 he was readmitted with gangrene of his right forefoot which involved the 2nd and 3rd toes. At that time, he was quite ill with fevers, chills, white count greater than 20,000 and gas in the soft tissues. Cultures yielded an MSSA. Cipro sensitive Pseudomonas, a Prevotella, and some other gram-negative rods which apparently were never identified and some alpha strep that were apparently not identified. The patient was taken to the operating room at [facility] and the 2nd and 3rd toes removed. The histopathology showed clear cut evidence of osteomyelitis. The patient was treated with vancomycin and Unasyn initially, though we do not have complete records and I am not sure if the vancomycin was continued after it was noted that he actually had MSSA rather than MRSA. In any event, the patient spent almost two weeks apparently at [facility] through July 26 and was doing reasonably well with respect to better control of his blood sugar, heart failure, and antibiotics for his osteomyelitis. He tells us that the tube cleaner in [place] was discussing what sounds like a TMA procedure with him. On or about July 26, however the patient signed out AMA and despite the best efforts of the staff at [facility] refused to stay and complete his therapy. At that point, all antibiotic therapy stopped, and he went home to where he lives alone in [place] and tried to do the wound care himself and had no access and no additional antibiotics. He reports that during that time at home his foot seemed to worsen overall, and he noticed increased drainage as well as a dramatic increase in pain that he eventually could not deal with. Because of that increasing pain, which he attributed to treat with escalating doses of vodka, he presented and was admitted to this facility last night. At that time readmission was very clear that the patient had a progressive and very destructive infection of his right forefoot, and he was appropriately cultured and placed on antibiotics, which include this morning vanc and Zosyn. The patient has already been seen by Podiatry and has been tentatively scheduled for surgery in the next day or two for what will likely become a transmetatarsal amputation. This morning we see the patient, he is a bit groggy, but able to give some history. He reports increasing pain and drainage from the right forefoot. He reports that things were a bit bloody and messy when he changed his own dressings at home, which must have been quite difficult. He denies however significant fevers, chills, or sweats. He says he has an occasional headache, which is not severe and denies significant cough, shortness of breath, or GI symptomatology. PAST MEDICAL HISTORY: 1. Organic heart disease. a. Coronary artery disease. b. Congestive heart failure with ejection fraction 15% to 20% on two recent echos. 2. Untreated hepatitis C. 3. Diabetes mellitus poorly controlled with mild neuropathy. 4. Polysubstance abuse including meth by the inhalational route and alcohol. 5. Group B Strep bacteremia April 2016. 6. Right foot osteomyelitis involving the 2nd and 3rd toes which were amputated in June 2016. 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 He uses methamphetamine and has in the past abused alcohol. Most recently was using alcohol for its pain-relieving affects. He continues to be a daily cigarette smoker. FAMILY HISTORY: No family history of TB in first or second-degree relatives and of course the patient himself would have had multiple PPDs while he was in the [employer]. REVIEW OF SYSTEMS: Was a little bit difficult because he is somewhat lethargic, but basically the patient has had minimal headache, no acute visual change, no sore throat. He notes he only has one tooth left basically. Otherwise he has dentures. No sore throat. No significant cough or shortness of breath. No chest pain, nausea, vomiting, diarrhea, or dysuria. He has had the severe pain in his right foot as previously described. Remainder of the review of systems negative. PHYSICAL EXAMINATION: Reveals an afebrile gentleman, temperature 36.6, pulse 110, respiratory rate in the 20s, blood pressure 109/68. He is saturating well on room air. This morning though he required some oxygen during the night. In general, the patient is awake and oriented x3. Sometimes his comments or tangential or hard to follow, but he clearly can give some history. There is no evidence for head trauma or temporal wasting. His eyes are without conjunctivitis. Nose is normal. Oral cavity with one tooth on the left lower. Otherwise he is edentulous. There is no evidence of pharyngitis, hairy leukoplakia, or buccal ulcers. Neck seems relatively supple. No adenopathy in the neck is noted. His lungs are scattered wheezes, but without a lot of rales cardiac tones regular rate and rhythm, a bit tachycardic so difficult to hear, but no overt murmurs or rubs are noted. Abdomen is soft and nontender. There is no organomegaly. No ascites. No tenderness. No suprapubic fullness. No Liriano catheter is present. No inguinal adenopathy. His knees are without effusion and appear normal. Lower extremities there is 1+ edema on the right especially below the knee. No edema noted on the left. There is no cellulitis noted on either his leg until one arrives at the right foot. Both feet have dramatically diminished peripheral pulses and very slow capillary refill. He does not appear to have a great deal of neuropathy though he does seem hypersensitive to light touch. On the right foot the 2nd and 3rd toes are missing. There is obvious infection extending up onto the dorsum of the foot on the right. There is no foul odor, but this area is clearly quite infected. Neurologically as noted the patient has some mild peripheral neuropathy. He can move all four extremities and is able to provide some history as mentioned. LABS: Include white count 12,000 yesterday afternoon in the ED, now 17. Diff includes 5% eos, otherwise relatively normal. Sed rate is 41, which does not help at all. Creatinine 0.84. Procalcitonin 0. INR was 0.94. Tox screen is pending. Blood cultures x2 done yesterday are pending. IMAGING: Includes an x-ray of the foot on the right side, which shows a small foreign body in the right great to, and amputation of the 2nd 3rd toes is seen obviously. No obvious osteo is seen elsewhere in the foot. IMPRESSION: This is a very complex and difficult case of a patient with underlying severe cardiac disease as well as poorly controlled diabetes and osteomyelitis involving the right foot. He recently had a two week hospitalization at [facility] and left abruptly and signed out AMA without any antibiotics. There is little question that his infection has worsened since he left [facility] almost a week ago and that he will require additional surgery to remove some of the infected portions of the right forefoot. It is unclear to me why vanco was used at [facility]. We do not have the complete records, but what we do have from micro there is two cultures that grew Staph aureus which was MSSA and we do not have any evidence of other organisms at this point. Beyond those that I mentioned earlier in the history of present illness. The optimal management here will of course include surgical debridement which is planned by Dr. Vaz as well as a long course of antibiotics. How long the antibiotics will continue will be partially contingent on what is found at surgery, which will be conducted later this week. RECOMMENDATIONS: 1. Will drop the IV vancomycin as I think it adds more toxicity than benefit without any proof of MRSA. 2. Will continue with Zosyn at this time in appropriate doses. 3. MRSA screen of the nose will be done. 4. Will obtain a baseline CRP level. 5. Will continue to follow this complex patient with you. 6. An HIV should be ordered on this patient, though I anticipate this was already done at [place], we do not have any clear record of that.
--- NOTE | 2016-07-31 10:56 | NUR ---
Left message for Pamela in patient access at [facility], . Let her know I patient is new and looking for service connection and related information. Updated PRESSURE TESTER Addendum: 07/31/16 at 1147 by TERESITA HANNA This patient is 100% service connected and PNT, there are no beds available today. This patient will be added to transfer list in the event a bed comes open. Patient also hold [facility]. Updated PRESSURE TESTER
--- NOTE | 2016-07-31 12:17 | NUR ---
Wound Care Wound evaluation orders received, EMR reviewed. Podiatry consulted will defer to Podiatry for wound care team involvement in this case.
--- NOTE | 2016-07-31 14:03 | NUR ---
Mentation/Tele/Resp/Activity Patient drowsy, sleeping a lot. Wakes and mumbles- difficult to understand. C/O "arms hurting and unable to move arms due to lab draws", but witnessed moving arms to turn self in bed. Wouldn't feed himself requiring staff to feed him. Barely able to wake, but c/o of pain. Not requesting pain med up to this point. Intermittently combative, spitting in bed, being verbally abusive to staff. Encouraged to communicate needs rather than getting mad. Tele ST, low 100s to one teens. MD aware. On RA with sats at 93-95%. C/O "breathing problems", blaming the oxygen staff placed on him in the night. Lying flat in bed on his back. MD aware, IVF stopped. Encouraged to sit up and to CDB. Lungs are decreased t/o. Voided x1 so far this shift, 375 mls [place] urine. Turns independently in bed. Bed alarm on due to toe amputation on right foot and possible unsteadiness. Has to be encouraged to assist with boosting up in bed. Advanced to ADA diet once cleared with Dr Vaz. Monitoring closely.
--- NOTE | 2016-07-31 15:06 | PCM.PNMED ---
Subjective Date of Service Jul 31, 2016 Subjective 56-year-old man with alcohol and methamphetamine abuse, hepatitis C, NYHA class III systolic congestive heart failure, poorly controlled diabetes, chronic psychiatric disease and peripheral wound infection presents with sepsis syndrome related to right foot osteomyelitis. The patient is mumbling and difficult to understand. He seems oriented but not fully cooperative with care. He endorses pain of his right foot. No dyspnea. States that phlebotomy has made his arms so painful he cannot move them. Exam Vital Signs Vital Sign - Last Date Time Temp Pulse Resp B/P Pulse Ox O2 Delivery O2 Flow Rate FiO2 07/31/16 12:21 37.3 109 30 106/61 93 Room Air 07/31/16 04:35 5.00 Intake and Output 07/30/16 07/30/16 07/31/16 Cumulative From/Thru 15:00 23:00 07:00 07/30/16 13:43 - 07/31/16 06:06 Intake Total 1000 ml 1225 ml 2225 ml Output Total 0 ml 0 ml Balance 1000 ml 1225 ml 2225 ml Intake Oral 0 ml 0 ml IV Total 1000 ml 1225 ml 2225 ml Output Urine Total 0 ml 0 ml Exam General: Disheveled-appearing man, no acute distress HEENT: Edentulous, sclerae anicteric, oral mucosa very dry Neck: no JVD Chest: clear to auscultation Cardiac: S1S2, no murmur Abdomen: BS normal, non-tender Extremities: No pitting edema, right forefoot bandaged with serous sanguinous drainage Neuro: A&O, cranial nerves symmetric, motor strength and coordination difficult to test IVs and Medications Medications Reviewed: Medications were reviewed in detail Lab and Diagnostics Result Diagram: 07/31/16 0455 07/31/16 0455 X-Rays, CTs and MRIs Right foot x-ray performed 07/30/2016 IMPRESSION: 1. A small linear metallic foreign body in the great toe. 2. Amputation of the second third toes. 3. Radiographs are not sensitive for early phase of osteomyelitis. If there is high clinical suspicion for osteomyelitis, a triple phase bone scan is suggested for further evaluation. Dictated by: Ryland Bone M.D. on 07/30/2016 at 16:14 . 12-lead ECG Sinus tachycardia, rate 107, QTC 454, "nonspecific repol abnormality." ST depression T-wave flattening in leads V4 through V6. . Cardiac Echo Impressions Echo report from [facility] performed 07/11/2016 Conclusions "Mild LVH and mild LV dilation with severe global LV dysfunction EF 20% Mild RV dilation with moderate RV dysfunction Trace mitral, aortic, tricuspid, pulmonic regurgitation." Full report can be found on page [address] [facility] records on paper chart. . 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 # Acute Sepsis, present on admission, treatment ongoing, White count 12.6 heart rate 114, temperature 35.8, source identified as right foot surgical wound with probable osteomyelitis. Lactic acid 1.5 on admission. Blood cultures negative. Wound cultures from [facility] showed group A strep and mixed gabo. -Repeat CBC in the a.m., -Discontinue Normal saline 125 mL per hour after 24 hours due to risk of further CHF -Infectious disease consult - Discontinue Vancomycin dose by pharmacy - Continue Zosyn 3.375 every 8 hours IV - MRSA screen # Acute on Chronic Osteomyelitis, present on admission, treatment ongoing. Acute features of sepsis with increased pain. Previously identified at [facility] in [place], did not complete antibiotics and left AMA. Plain films read and additional imaging was recommended. -Podiatry consulted, we appreciate their input and recommendations -Pain management with Dilaudid orally for enthesis preferred) or IV. - Nothing by mouth after midnight on 07/31/16 for right metatarsal amputation on 08/01. # Elevated troponin. Troponin elevation due to cardiomyopathy and renal failure versus Non ST elevation Myocardial infarction. Present on admission. Moderately elevated troponins with flat profile were also documented during recent hospitalization at [facility]. According to records he was not cooperative with further cardiology workup. This now appears to be a stable finding which is not likely related to acute ischemia. - discontinue Heparin drip - continue Aspirin for antiplatelet therapy # Chronic systolic congestive heart failure with compensation, present on admission, treatment restarted. Stable. Echocardiogram from [facility] EF of 20%, with compensation. - Continue carvedilol - Placed on telemetry # Chronic Uncontrolled diabetes mellitus, not insulin using, present on admission. Globin A1c 11.3%. Serum glucose was 307. - glargine at bedtime, - Medium dose correctional insulin scale - Continue metformin at present - Diabetes education - Lisinopril restarted # Chronic Polysubstance abuse, present on admission, treatment initiated. States he last used methamphetamines, smoked, earlier this morning before presentation to the emergency department for pain control. Avoid central lines of possible - Social work consult for chemical dependency. # Chronic tobacco abuse and dependence, present on admission, treatment initiated. - Tobacco cessation education, counseling by [facility]. at time of admission - Nicotine transdermal patches. Pain management IV or preferably by mouth Dilaudid DVT prophylaxis: Heparin drip until anticoagulated bridge to warfarin Bowel regimen as needed Patient admitted under inpatient status with expected length of stay 3-5 days for severity of present symptoms, complexities of treatment plan and risk for adverse events. GI Prophylaxis: Not indicated VTE Prophylaxis: Other (heparin drip) Resuscitation Status: CPR: Attempt Resuscitation Time spent 40 minutes Amadeo Mariano MD Jul 31, 2016 15:06
--- NOTE | 2016-07-31 15:56 | PCM.CHPPOD ---
Subjective Date of service Jul 31, 2016 History of Present Illness Patient presented with an open right foot wound s/p partial transmetatarsal amputation of the 2nd and 3rd metatarsals that was performed at [facility] in [place].He left a few days ago AMA and is now here out of concern for losing his foot. Upon my arrival, the patient was very difficult to arouse. She spoke to me and a very quiet voice and answering questions with single word replies. He indicated that he would be willing to undergo further debridement as long as the wound was closed in the end. He is mentioning something about getting pneumonia or feeling like he is getting pneumonia. He has not been cooperative with exams so far. Allergy Allergies: Coded Allergies: codeine (Verified Adverse Reaction, Unknown, 07/30/16) Medications Acetaminophen (Acetaminophen) 325 Mg Tablet 650 MG PO Q4H PRN PRN For Fever Albuterol HFA (Proair HFA) 8.5 Gm Hfa.aer.ad 6-8 PUFFS INHALATION Q2H PRN PRN For Shortness of Breath Amiodarone (Amiodarone) 200 Mg Tablet 200 MG PO QAM Apixaban (Eliquis) 5 Mg Tablet 5 MG PO BID Aspirin Chew (Aspirin Chew) 81 Mg Chew 81 MG PO QAM Bisacodyl (Dulcolax Rectal) 10 Mg Supp.rect 10 MG RC DAILY PRN PRN For Constipation Carvedilol (Carvedilol) 3.125 Mg Tablet 3.125 MG PO BID Dextran 70/Hypromellose/Pf (Artificial Tears Drops) 1 Each Droperette 1 DROP BOTH_EYES QID PRN PRN DRY EYES Dextrose (Glucose) 4 Gm Tab.chew 4 GM PO ASDIRECTED PRN PRN HYPOGLYCEMIA Digoxin (Digoxin) 125 Mcg Tablet 125 MCG PO QAM Famotidine (Famotidine) 20 Mg Tablet 20 MG PO BIDWM Furosemide (Furosemide) 40 Mg Tablet 40 MG PO QAM Glipizide (Glipizide) 5 Mg Tablet 5 MG PO DAILYWM Hydralazine (Hydralazine) 25 Mg Tablet 25 MG PO TID Insulin Human Lispro (HumaLOG U100 Insulin Vial) 100 Unit/Ml Unit 3-6 UNIT SUBQ TIDWM PRN PRN HYPERGLYCEMIA Check blood sugars before meals and at bedtime. Use correction factor only before meals. Blood Sugar Lispro Correction: <151, 0 units; 151-175, 1 unit; 176-200, 2 units; 201-225, 3 units; 226-250, 4 units; 251-275, 5 units; 276-300 , 6 units; 301-325, 7 units; 326-350, 8 units; 351-375, 9 units; 376-400, 10 units; >400, 12 units. Isosorbide DN (Isosorbide DN) 10 Mg Tablet 10 MG PO TID Lisinopril (Lisinopril) 20 Mg Tablet 20 MG PO QAM Lovastatin (Lovastatin) 40 Mg Tablet 40 MG PO HS Melatonin (Melatonin) 5 Mg Tablet 5 MG PO HS PRN PRN For Insomnia Metformin (Glucophage) 1,000 Mg Tablet 1,000 MG PO BIDWM Nicotine 21 mg/24 hr Patch (Nicotine 21 mg/24 hr Patch) 1 Each Patch.dysq 1 PATCH TRANSDERM DAILY PRN PRN For Withdrawal Symptoms Nystatin (Nystatin) 15 Gm Powder 1 APPLIC TP QID PRN PRN RASH Olanzapine ODT (Olanzapine ODT) 5 Mg Tablet 5 MG PO HS Olanzapine ODT (Olanzapine ODT) 5 Mg Tablet 5 MG PO Q6H PRN PRN For Anxiety or Agitation Polyethylene Glycol 3350 (Polyethylene Glycol 3350) 17 Gm Powd.pack 17 GM PO QAM Potassium Chloride (Potassium Chloride) 20 Meq/15 Ml Liquid 20 MEQ PO QAM Sennosides/Docusate Sodium (Senna-Docusate Sodium Tablet) 1 Each Tablet 1 EACH PO BID Spironolactone (Spironolactone) 25 Mg Tablet 25 MG PO QAM Past Medical History Reviewed Admit H&P dictated by: Dr. 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 Hx Alcohol Use: Yes ("alot the last few days") Hx Substance Use: Yes (meth) Smoking Status: Current Every Day Smoker Podiatry Consult Exam Vital Signs Vital Sign - Last Date Time Temp Pulse Resp B/P Pulse Ox O2 Delivery O2 Flow Rate FiO2 07/31/16 12:21 37.3 109 30 106/61 93 Room Air 07/31/16 04:35 5.00 Intake and Output 07/30/16 07/30/16 07/31/16 Cumulative From/Thru 15:00 23:00 07:00 07/30/16 13:43 - 07/31/16 06:06 Intake Total 1000 ml 1225 ml 2225 ml Output Total 0 ml 0 ml Balance 1000 ml 1225 ml 2225 ml Intake Oral 0 ml 0 ml IV Total 1000 ml 1225 ml 2225 ml Output Urine Total 0 ml 0 ml Result Diagram: 07/31/16 0455 07/31/16 0455 Lab Test 07/30/16 16:23 07/31/16 04:55 07/31/16 09:21 07/31/16 09:50 Erythrocyte Sedimentation Rate 41mm/hr (0-30) Prothrombin Time 10.0sec (8.1-12.5) Prothromb Time International Ratio 0.94ratio Hemoglobin A1c 11.3% (4.8-5.6) Lactic Acid Level 1.5mmol/L (0.4-2.0) Phosphorus Level 2.5mg/dL (2.5-4.9) Magnesium Level 1.5mg/dL (1.6-2.6) Total Bilirubin 0.4mg/dL (0.0-1.2) Aspartate Amino Transf (AST/SGOT) 38U/L (0-50) Alanine Aminotransferase (ALT/SGPT) 24U/L (0-44) Alkaline Phosphatase 154U/L (25-150) Total Protein 7.2g/dL (6.4-8.4) Albumin 3.3g/dL (3.4-5.0) Lipase 53U/L (13-60) Procalcitonin 0.04ng/mL (0.00-0.08) White Blood Count 17.5th/mm3 (3.8-10.1) Red Blood Count 4.12mil/mm3 (4.40-5.80) Hemoglobin 11.5g/dL (13.8-17.2) Hematocrit 34.9% (41.0-50.0) Mean Corpuscular Volume 84.7fL (81-100) Mean Corpuscular Hemoglobin 27.9pg (27.0-35.0) Mean Corpuscular Hemoglobin Concent 33.0% (32.0-37.0) Red Cell Distribution Width 17.9% (12.3-15.4) Platelet Count 289bil/L (150-400) Neutrophils (%) (Auto) 68.8% (40-74) Lymphocytes (%) (Auto) 17.0% (14-46) Monocytes (%) (Auto) 7.6% (4-12) Eosinophils (%) (Auto) 5.6% (0-5) Basophils (%) (Auto) 0.4% (0-3) Sodium Level 135mEq/L (134-144) Potassium Level 3.6mEq/L (3.5-5.2) Chloride Level 102mEq/L (97-108) Carbon Dioxide Level 23mmol/L (18-29) Blood Urea Nitrogen 12mg/dL (6-24) Creatinine 0.84mg/dL (0.76-1.27) Estimat Glomerular Filtration Rate 100mL/min (>59) Glucose Level 262mg/dL (60-99) Calcium Level 9.5mg/dL (8.5-10.1) Troponin T 0.351ug/L (0.0-0.011) Urine Color Yellow (YELLOW) Urine Appearance Clear (CLEAR,HAZY) Urine pH 6.0 (5.0-8.0) Urine Specific [place] 1.025 (1.003-1.035) Urine Protein 100mg/dL (NEG,TRACE) Urine Glucose (UA) 1000mg/dL (NEGATIVE) Urine Ketones Negativemg/dL (NEGATIVE) Urine Occult Blood Trace (NEGATIVE) Urine Nitrite Negative (NEGATIVE) Urine Bilirubin Negative (NEGATIVE) Urine Urobilinogen Normalmg/dL (NORMAL) Urine Leukocyte Esterase Negative (NEGATIVE) Urine RBC 3-10/hpf (0-2) Urine WBC 0-5/hpf (0-5) Urine Epithelial Cells Occasional/hpf (NONE-MOD) Urine Crystals None seen (NONE SEEN) Urine Bacteria None/hpf (NONE-FEW) Urine Hyaline Casts None/lpf (NONE) Urine Granular Casts None seen (NONE SEEN) Urine Waxy Casts None seen (NONE SEEN) Urine Red Blood Cell Casts None seen (NONE SEEN) Urine White Blood Cell Casts None seen (NONE SEEN) Urine Mucus Present (None Seen) Urine Trichomonas None seen (NONE SEEN) Urine Yeast None (NONE SEEN) Urinalysis Comment Urine Culture Reflexed Not indicated Urine Opiates Screen Negative Urine Methadone Screen Negative Urine Barbiturates Screen Negative Urine Amphetamines Screen Positive Urine Benzodiazepines Screen Negative Urine Cocaine Metabolite Screen Negative Urine Cannabinoids Screen Negative C-Reactive Protein 2.1mg/dL (0.0-0.5) Pro-B-Type Natriuretic Peptide 44510xg/mL (0-210) Test 07/31/16 10:45 Activated Partial Thromboplast Time 38.5sec (22.8-33.0) Diagnostics Right foot x-ray shows clean transmetatarsal cuts 2 and 3, no signs of acute osteomyelitis or bony resorption since surgery. The sensitivity of the study is not ideal. Exam Lower Extremities: Right: Edema localized Extremity warm Lower Extremity Pulses: Palpable: Left Dorsalis Pedis Left Posterior Tibal Right Posterior Tibal Doppler: Right Dorsalis Pedis Podiatry WOUND : Wound Location/Description The patient has a significant, large open wound on the right foot that encompasses the entire area distal to the mid metatarsal 2 and 3, fibrous, necrotic, malodorous, draining large amounts of serosanguineous fluid. There is no good granulation tissue. Periwound erythema is present. No further ulcerations are noted. There is a scab at the distal aspect of the right great toe, corresponding to the area of the metallic foreign body seen on x-ray. It is likely encapsulated just underneath that scab. The patient withdraws his foot in pain when touched. He is not cooperating long enough to stay awake and discuss my findings. The left foot is free of ulcerations, but the skin is very dry and flaky. His toenails are thickened. Assessment & Plan Problems: (1) Osteomyelitis of right foot Qualifiers: Osteomyelitis type: other acute Qualified Code: M86.171 - Other acute osteomyelitis, right ankle and foot Plan: This patient's right foot wound requires further debridement, and likely further amputation. Unfortunately, he has not a good candidate for prolonged limb salvage efforts. The chance of proceeding onto below knee amputation is high. Due to the extremely contaminated wound, I will wait to obtain a hospital cleaner sample for cultures that we can guide antibiotic treatment appropriately. He is scheduled for the operating room tomorrow at 1230 p.m. Hopefully, he will be more cooperative with overall exam by tomorrow and optimized for surgery. She did wake up long enough to sign his consent today. This was witnessed by his nurse, Libby. The patient's mentation is concerning, since he only received one dose of pain medication since he arrived. The excessive sedation could be due to a different source. I will reassess him tomorrow, prior to surgery. I will also request an anesthesia chart review prior to the OR time. Status: Acute ICD Code: M86.9 VTE Prophylaxis: Other (heparin drip) Phoebe Vaz DPM Jul 31, 2016 15:55
--- NOTE | 2016-07-31 16:25 | NUR ---
pt refusing labs pt refused vanco trough even after education on why it was important. Addendum: 07/31/16 at 1629 by MAGDI NUÑEZ RN pharmacist and Dr cordoba notified
[2016-07-31] MEDS ORDERED: Vancomycin Serum Trough XX ONE (16:30)
[2016-07-31] MEDS: OLANZapine Zydis ODT 5 mg Tablet PO SCH (19:35)
[2016-07-31] MEDS ORDERED: Insulin GLARgine 100 Unit/mL Syringe SUBQ SCH (21:00)
[2016-08-01] VITALS (20 sets, daily range): BP systolic 80–140; BP diastolic 57–87; PULSE 68–109; RESP 9–30; O2SAT 90–100
--- NOTE | 2016-08-01 01:10 | NUR ---
BS/PAIN Pt's BS 219, gave 2 units. Pt c/o right foot pain, gave PO Dilaudid with good results. Pt was cooperative with care throughout the night. Pt NPO after midnight for scheduled right foot debridement and possible right foot amputation. No other issues noted at this time. Addendum: 08/01/16 at 0314 by MAXINE SLADE RN Pt wishes to sleep with no interruptions, no 3am BS check.
[2016-08-01] MEDS: Piperacillin-Tazo 3.375 Gm Inj 3.375 GM in Dextrose 5% Minibag Plus 50 ML IV SCH ×2 (07:49→16:18)
[2016-08-01] MEDS: Multivit-Miner-Folic Acid-Iron Tablet PO SCH (07:49)
[2016-08-01] MEDS: Sodium Chloride LOK Flush 10 mL Syringe IVFLUSH SCH ×6 (07:50→21:37)
[2016-08-01] MEDS ORDERED: Sodium Chloride LOK Flush 10 mL Syringe IVFLUSH PRN ×2 (08:00)
[2016-08-01] MEDS: Potassium Chloride 20 mEq/15 mL 15mL Oral Soln PO SCH (08:02)
[2016-08-01] MEDS: Insulin LISPRO 300 Unit/3 mL Inj SUBQ SCH ×4 (08:02→21:02)
[2016-08-01] MEDS: Polyethylene Glycol (PEG) 17 Gm Powder PO SCH (08:02)
--- NOTE | 2016-08-01 10:17 | NUR ---
Social Work Note: Screen Note Data& Assessment: EMR reviewed. Junaid Lyon is a 56 year old male admitted on 07/30/2016 for osteomyelitis of the right foot. Pt has [employer] insurance is 100% service connected. Pt sees Deric White MD for primary crae. Pt lives in [place] alone and is independent at baseline. Per MD in morning rounds, pt is going to the OR for debriedment. SW to follow for potential IV abx, wound care, PT recommendations and MD orders. Plan: Pt needs at this time are unclear and pending procedure in the OR today. SW to follow for potential IV abx, wound care, PT recommendations and MD orders. CONSTANTINE Clayton
--- NOTE | 2016-08-01 10:28 | NUR ---
Social Work Note: Substance Use Order SW received order from MD to complete substance use assessment and offer resources. SW to follow up with pt regarding CD use when appropriate. SW to continue to follow. CONSTANTINE Clayton
--- NOTE | 2016-08-01 11:22 | PROG NOTE ---
[address] [address] PROGRESS NOTE PATIENT: ROCIO MCKEON : 1960 MR#: [id number] ADMIT: 07/30/2016 JOB ID: [id number] DATE: 08/01/2016 INFECTIOUS DISEASE FOLLOW UP NOTE: REASON FOR FOLLOWUP: Extensive right forefoot infection with cellulitis and probable osteo. INTERVAL HISTORY: Overnight, the patient has remained free of fevers or chills. No shortness of breath, nausea, vomiting, diarrhea. Mild-to- moderate pain in the right foot and he is awaiting surgery later this morning. PHYSICAL EXAMINATION: Reveals an afebrile gentleman, temperature 36.7, pulse 78, respiratory rate 14, blood pressure 110/66, saturating well on room air. He is in no acute distress. Lungs are clear. Cardiac tones without new murmur. Abdomen benign. His foot is dressed. We did not remove the dressing as he is just about to go to surgery. The patient declined blood draw today. Yesterday's white count 17,000. His creatinine 0.84. BNP 16,000 this morning. Toxicology positive for amphetamines. HIV negative. Blood cultures negative. We called the hospital in [place] and found out that no MRSA was found there and the organisms found were primarily MSSA. IMPRESSION: This is a patient with complicated right diabetic foot infection with severe underlying cardiac disease as well as poorly controlled diabetes. He recently left AMA from the [facility] and suffered a lapse in his antibiotic and wound management therapy. He is now here with progressive right forefoot infection. RECOMMENDATIONS: 1. No treatment for MRSA is indicated. 2. Will continue his Zosyn as her only antibiotic at this time. 3. We await the findings at surgery later today.
--- NOTE | 2016-08-01 12:20 | NUR ---
Off unit to OR Addendum: 08/01/16 at 1612 by GLENROY LEVY RN Patient returned from OR after R foot wound debridement. Pt A&O X3. VSS. Reports 3/10 tolerable pain to R foot. R foot dressing C/D/I. Pt also went to PICC suite and had L 2L PICC placed to upper arm (SL0 . L forearm PIV DC'd intact by GAYE.
--- NOTE | 2016-08-01 12:37 | PCM.HPANE ---
Patient Data Surgeon Admitting Provider:Gary Rankin MD Attending Provider:Gary Rankin MD Primary Care Physician:Deric White MD Other Provider: Reason for Visit Osteomyelitis Of The Right Foot Ht/WT & BMI Body Mass Index 25.93 Allergies Coded Allergies: codeine (Verified Adverse Reaction, Unknown, 07/30/16) Past Anesthesia History Anesthesia History: Denies:: Anesthesia Reactions Diabetes History Hx Diabetes?: Yes Current Bedside Blood Glucose: 183 MRSA MRSA: Yes (YEARS AGO) Medications Reported Medications Melatonin 5 Mg Tablet5 Mg PO HS PRN For Insomnia 07/30/16 Nicotine 21 mg/24 hr Patch 1 Each Patch.dysq1 Patch TRANSDERM DAILY PRN For Withdrawal Symptoms Ref 0 07/30/16 Nystatin 15 Gm Powder1 Applic TP QID PRN RASH 07/30/16 Metformin (Glucophage)1,000 Mg Tablet1,000 Mg PO BIDWM Ref 0 07/30/16 Lovastatin 40 Mg Tlfypl11 Mg PO HS #30 TABLET Ref 0 07/30/16 Lisinopril 20 Mg Nmguqk28 Mg PO QAM 30 Days Ref 0 07/30/16 Isosorbide DN 10 Mg Ejsgqn93 Mg PO TID Ref 0 07/30/16 Insulin Human Lispro (HumaLOG U100 Insulin Vial)100 Unit/Ml Unit3-6 Unit SUBQ TIDWM PRN HYPERGLYCEMIA #1 VIAL Ref 0 Check blood sugars before meals and at bedtime. Use correction factor only before meals. Blood Sugar Lispro Correction: <151, 0 units; 151-175, 1 unit; 176-200, 2 units; 201-225, 3 units; 226-250, 4 units; 251-275, 5 units; 276-300, 6 units; 301-325, 7 units; 326-350, 8 units; 351-375, 9 units; 376-400, 10 units; >400, 12 units. 07/30/16 Hydralazine 25 Mg Zrxpci52 Mg PO TID Ref 0 07/30/16 Dextrose (Glucose)4 Gm Tab.chew4 Gm PO ASDIRECTED PRN HYPOGLYCEMIA 07/30/16 Glipizide 5 Mg Tablet5 Mg PO DAILYWM 30 Days 07/30/16 Furosemide 40 Mg Cynzth65 Mg PO QAM 07/30/16 Dextran 70/Hypromellose/Pf (Artificial Tears Drops)1 Each Droperette1 Drop BOTH_ EYES QID PRN DRY EYES #1 BOTTLE 07/30/16 Polyethylene Glycol 3350 17 Gm Powd.pack17 Gm PO QAM 07/30/16 Olanzapine ODT 5 Mg Tablet5 Mg PO Q6H PRN For Anxiety or Agitation Ref 0 07/30/16 Potassium Chloride 20 Meq/15 Ml Hheugc92 Meq PO QAM 07/30/16 Sennosides/Docusate Sodium (Senna-Docusate Sodium Tablet)1 Each Tablet1 Each PO BID 07/30/16 Spironolactone 25 Mg Jwiixr39 Mg PO QAM #30 TABLET Ref 0 07/30/16 Olanzapine ODT 5 Mg Tablet5 Mg PO HS Ref 0 07/30/16 Famotidine 20 Mg Wbmbnm14 Mg PO BIDWM Ref 0 07/30/16 Digoxin 125 Mcg Ngsizb824 Mcg PO QAM #30 TABLET Ref 0 07/30/16 Carvedilol 3.125 Mg Tablet3.125 Mg PO BID Ref 0 07/30/16 Bisacodyl (Dulcolax Rectal)10 Mg Supp.rect10 Mg RC DAILY PRN For Constipation 30 Days Ref 0 07/30/16 Aspirin Chew 81 Mg Chew81 Mg PO QAM Ref 0 07/30/16 Apixaban (Eliquis)5 Mg Tablet5 Mg PO BID 07/30/16 Amiodarone 200 Mg Gltenw360 Mg PO QAM Ref 0 07/30/16 Albuterol HFA (Proair HFA)8.5 Gm Hfa.aer.ad6-8 Puffs INHALATION Q2H PRN For Shortness of Breath #1 INHALER 07/30/16 Acetaminophen 325 Mg Ewkbgk443 Mg PO Q4H PRN For Fever Ref 0 07/30/16 Discontinued Reported Medications Melatonin/Pyridoxine (Melatonin 5 mg Tablet)1 Each Tablet1 Each PO HS PRN For Insomnia 07/30/16 History History of ENT Problems?: No HEENT History: Denies:: Abnormal Airway Cataracts Difficult Intubation Dysphagia Glaucoma Hearing Problem Sinus Problem TMJ Denture Type: Full- Upper Teeth Condition: No Teeth Missing Teeth Hx of Heart Problems?: Yes Cardiovascular History: Positive for:: Congestive Heart Failure Hypertension Other History/Comments Well controlled HTN, cannot relate any history of CHF. denies WA or Chest pain Hx of Respiratory Problem?: Yes Respiratory History: Positive for:: Dyspnea (USES INHALER) Denies:: Tuberculosis Hx Neurologic Problems?: Yes Neurological History: Positive for:: Dizziness Seizures (DIABETIC SEIZURE) Other Neurological Pertinent: USES CANE AT BASELINE Hx of GI Problems?: No Hx of Problems?: No Genitourinary History: Denies:: Kidney Stones Urinary Tract Infection Male Hx: Denies:: Prostate Problems Scrotal Mass Testicular Surgery Hx Musculoskeletal Problems?: Yes Musculoskeletal History: Positive for:: Back Injury (SEE TRAUMA) Musculoskeletal Trauma (FELL OFF ROOF AND BROKE BACK) Osteoarthritis Denies:: Joint Replacement Other History/Comment Osteoarthritis of right foot, here today for debridement Hx of Psycho/Social Problems?: Yes Psycho Social History: Positive for:: Anxiety Hx Depression Suicide Attempt (YEARS AGO) Denies:: Bipolar Disorder Hx Surgeries?: Yes Hx Any Other Health Problems?: Yes Other History: Positive for:: Hospitalization (HERNIA, FACIAL RECONSTRUCTION, OSTEOMYELITIS, BACK INJURY) Denies:: Cancer Thyroid Disease History Blood Transfusions: Positive for:: Accept Blood Products? 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 Hx Alcohol Use: Yes ("alot the last few days")Hx Substance Use: Yes (meth) Smoking Status: Current Every Day Smoker Have You Smoked inLast 12 mo: YesApprox How Many Cigarettes/day: 5 cigs/day Stop/Bang Treated for Sleep Apnea?: No Do You Have a CPAP Machine?: No S-Snoring: Do You Snore Loudly: No T-Tired: feel tired, fatigued: No O-Obsered: Observed not breath: No P-Blood Pressure: treated: Yes B- Body Mass Index > 35 kg/m2: No A- Age over 50: Yes N- Neck Large Circumference: No G- Gender Male: Yes BEV Total Score: 2 Risk Assessment Category Category 1A: Patient has history of documented sleep apnea, and HAS NOT received any narcotic, sedative or anesthesia administration during this stay. Category 1B: Patient has history of documented sleep apnea, and HAS received any narcotic , sedative or anesthesia administration during this stay Category 2: Patient has SUSPECTED Obstructive Sleep Apnea, and HAS received any narcotic , sedative or anesthesia administration during this stay. Category 3: Patient has SUSPECTED Obstructive Sleep Apnea and HAS NOT received narcotic, sedative or anesthesia administration during this stay. Category 4: Outpatient in Procedural Areas with known sleep apnea or who screen positive for High Risk via the STOP/BANG questionnaire. Exam Exam Vital Signs Vital Signs Date Time Temp Pulse Resp B/P Pulse Ox O2 Delivery O2 Flow Rate FiO2 08/01/16 11:50 36.9 82 12 96/61 96 Room Air 08/01/16 10:41 78 08/01/16 07:40 85 14 94 Room Air 08/01/16 07:25 36.7 86 16 110/66 95 Room Air General Appearance: Alert, Oriented X3, Cooperative HEENT/AIRWAY: MP 2 Lungs: Clear to Auscultation Heart: Exam Unremarkable Meds/Labs/Diagnostics Admission Meds Current Medications Insulin Glargine (Lantus Insulin Inj) 20 unit HS SUBQ Last administered on 07/31t 20:23; Start 07/31/16 at 21:00 Bedside Blood Glucose: 183 Labs Test 07/30/16 16:23 07/31/16 04:55 07/31/16 09:21 07/31/16 09:50 Erythrocyte Sedimentation Rate 41mm/hr (0-30) Prothrombin Time 10.0sec (8.1-12.5) Prothromb Time International Ratio 0.94ratio Hemoglobin A1c 11.3% (4.8-5.6) Lactic Acid Level 1.5mmol/L (0.4-2.0) Phosphorus Level 2.5mg/dL (2.5-4.9) Magnesium Level 1.5mg/dL (1.6-2.6) Total Bilirubin 0.4mg/dL (0.0-1.2) Aspartate Amino Transf (AST/SGOT) 38U/L (0-50) Alanine Aminotransferase (ALT/SGPT) 24U/L (0-44) Alkaline Phosphatase 154U/L (25-150) Total Protein 7.2g/dL (6.4-8.4) Albumin 3.3g/dL (3.4-5.0) Lipase 53U/L (13-60) Procalcitonin 0.04ng/mL (0.00-0.08) White Blood Count 17.5th/mm3 (3.8-10.1) Red Blood Count 4.12mil/mm3 (4.40-5.80) Hemoglobin 11.5g/dL (13.8-17.2) Hematocrit 34.9% (41.0-50.0) Mean Corpuscular Volume 84.7fL (81-100) Mean Corpuscular Hemoglobin 27.9pg (27.0-35.0) Mean Corpuscular Hemoglobin Concent 33.0% (32.0-37.0) Red Cell Distribution Width 17.9% (12.3-15.4) Platelet Count 289bil/L (150-400) Neutrophils (%) (Auto) 68.8% (40-74) Lymphocytes (%) (Auto) 17.0% (14-46) Monocytes (%) (Auto) 7.6% (4-12) Eosinophils (%) (Auto) 5.6% (0-5) Basophils (%) (Auto) 0.4% (0-3) Sodium Level 135mEq/L (134-144) Potassium Level 3.6mEq/L (3.5-5.2) Chloride Level 102mEq/L (97-108) Carbon Dioxide Level 23mmol/L (18-29) Blood Urea Nitrogen 12mg/dL (6-24) Creatinine 0.84mg/dL (0.76-1.27) Estimat Glomerular Filtration Rate 100mL/min (>59) Glucose Level 262mg/dL (60-99) Calcium Level 9.5mg/dL (8.5-10.1) Troponin T 0.351ug/L (0.0-0.011) Urine Color Yellow (YELLOW) Urine Appearance Clear (CLEAR,HAZY) Urine pH 6.0 (5.0-8.0) Urine Specific [place] 1.025 (1.003-1.035) Urine Protein 100mg/dL (NEG,TRACE) Urine Glucose (UA) 1000mg/dL (NEGATIVE) Urine Ketones Negativemg/dL (NEGATIVE) Urine Occult Blood Trace (NEGATIVE) Urine Nitrite Negative (NEGATIVE) Urine Bilirubin Negative (NEGATIVE) Urine Urobilinogen Normalmg/dL (NORMAL) Urine Leukocyte Esterase Negative (NEGATIVE) Urine RBC 3-10/hpf (0-2) Urine WBC 0-5/hpf (0-5) Urine Epithelial Cells Occasional/hpf (NONE-MOD) Urine Crystals None seen (NONE SEEN) Urine Bacteria None/hpf (NONE-FEW) Urine Hyaline Casts None/lpf (NONE) Urine Granular Casts None seen (NONE SEEN) Urine Waxy Casts None seen (NONE SEEN) Urine Red Blood Cell Casts None seen (NONE SEEN) Urine White Blood Cell Casts None seen (NONE SEEN) Urine Mucus Present (None Seen) Urine Trichomonas None seen (NONE SEEN) Urine Yeast None (NONE SEEN) Urinalysis Comment Urine Culture Reflexed Not indicated Urine Opiates Screen Negative Urine Methadone Screen Negative Urine Barbiturates Screen Negative Urine Amphetamines Screen Positive Urine Benzodiazepines Screen Negative Urine Cocaine Metabolite Screen Negative Urine Cannabinoids Screen Negative C-Reactive Protein 2.1mg/dL (0.0-0.5) Pro-B-Type Natriuretic Peptide 93452qy/mL (0-210) HIV (1&2) Ag and Ab, 4th Generation Non reactive (Non Reactive) Test 07/31/16 10:45 Activated Partial Thromboplast Time 38.5sec (22.8-33.0) Plan Impression Patient chart reviewed, patient interviewed and anesthestic plan with risks, benefits, and alternatives discussed, and informed consent obtained. ASA Physical Status: ASA3 Severe Disease Anesthetic Plan: GA Bene/Risks/Altern/Consents: Yes HP Complete Prior to Induction: Yes Corwin Vance MD Aug 01, 2016 12:37
[2016-08-01] MEDS ORDERED: Lactated Ringer's 1,000 ML IV ONE (13:21)
--- NOTE | 2016-08-01 13:54 | PCM.PODPO ---
Podiatry Operative Report Date of Service: Jul 30, 2016 Date of Service Aug 01, 2016 Pre Operative Diagnosis Right foot gangrene Post Operative Diagnosis Right foot gangrene Procedure Incision, drainage, wide debridement of necrotic tissue, right foot Total wound size before debridement was 8 cm x 6 cm in size and 2 cm in depth, after debridement it was 8.5 x 7 cm in size and 2.5 cm in depth. Surgeon Surgeon: Gary Rankin MD Assistants: None Indication for Procedure Recurrent infection in the partially amputated right forefoot. Findings There was considerable blanching with elevation prior and during the procedure. I used a Doppler to check for dorsalis pedis and posterior tibial pulses, both of which were very strong and triphasic. The posterior tibial pulses palpable, the dorsalis pedis pulse nonpalpable secondary to edema. There was very little active bleeding during the procedure. Inflow disease is strongly suspected as being a player and nonhealing of this considerable wound. The patient's heart failure with ejection fraction of 15% places him at high risk for nonhealing. Details of Procedure The patient was identified in the preoperative holding area and brought back to the operating room. He was placed on the operating table in supine position. The right foot is identified as the operative site. General anesthesia was initiated. The timeout protocol was completed. The right foot was prepped and draped in the usual aseptic manner. The existing open necrotic wound was excisionally debrided using a #10 scalpel, a rongeur, and iris scissors with forceps. Necrotic tendon, muscle, subcutaneous tissue, and skin were excised. Tissue samples were sent for culture prior to pulse lavage, and a swab culture of the entire wound was sent after the pulse lavage. The wound was irrigated under pressure with 3 L of fluid. The bleeding was not significant enough to require any cauterization. There was no hemostasis. Dressing consisted of half inch iodoform packing, fluffs, gauze, Kerlix, Coban lightly wrapped. The patient was weaned off of general anesthesia and taken to the recovery room. Vascular status to the right foot is questionable, most likely related to inflow disease. Grafts, Implants: None Complications There were no periprocedural complications identified. Condition Stable Anesthetic Administered: GA Drains: None Catheters: None Output, Estimated Blood Loss: 10 (ml) Blood Admin during surgery: No Surgical Cast or Splint: None Surgical Specimen Removed: Yes Specimen sent to Pathology: No Surgical Specimen description: Tissue and swab culture specimens sent. Post Operative Plan WB as tolerated in postop shoe only. Mobilize patient. Cardiovascular status will likely result in a nonhealing wound. Phoebe Vaz DPM Aug 01, 2016 13:54
[2016-08-01] MEDS ORDERED: Phenylephrine/NS-PF 100 mCg/mL 5 mL Syringe IVPUSH ONE ×2 (14:15→14:35)
[2016-08-01] MEDS ORDERED: Propofol 10,000 mCg/mL 20 mL Inj ONE (14:35)
[2016-08-01] MEDS ORDERED: fentaNYL-PF 50 mCg/mL 2 mL Inj ONE (14:35)
[2016-08-01] MEDS ORDERED: Lactated Ringer's 500 ML IV PRN (14:48)
[2016-08-01] MEDS ORDERED: Lactated Ringer's 1,000 ML IV SCH (14:48)
[2016-08-01] MEDS ORDERED: HYDROmorphone 1 mg/mL Inj IVPUSH PRN (14:50)
[2016-08-01] MEDS ORDERED: MetoCLOpramide 5 mg/mL 2 mL Inj IVPUSH PRN (14:50)
[2016-08-01] MEDS ORDERED: Ondansetron 2 mg/mL 2 mL Inj IVPUSH PRN (14:50)
[2016-08-01] MEDS ORDERED: fentaNYL-PF 50 mCg/mL 2 mL Inj IVPUSH PRN (14:50)
[2016-08-01] MEDS ORDERED: Dexamethasone 4 mg/mL Inj IVPUSH PRN (14:50)
[2016-08-01] MEDS ORDERED: EPHEDrine Sulfate 50 mg/mL Inj IVPUSH PRN (14:50)
[2016-08-01] MEDS ORDERED: Phenylephrine 10,000 mCg/mL Inj IVPUSH PRN (14:50)
--- NOTE | 2016-08-01 14:51 | PCM.ANEP1 ---
Post Anesthesia PACU Phase 1 Assessment Vital Signs Vital Signs Date Time Temp Pulse Resp B/P Pulse Ox O2 Delivery O2 Flow Rate FiO2 08/01/16 14:43 73 14 96/65 94 Room Air 08/01/16 14:38 74 14 98/66 96 Room Air 08/01/16 14:31 73 13 100/67 95 Room Air 08/01/16 14:25 72 10 95/62 97 Room Air 08/01/16 14:22 68 9 88/61 96 Room Air 08/01/16 14:17 69 11 80/57 96 Room Air 08/01/16 14:11 69 16 93/61 100 Room Air 08/01/16 14:05 71 19 92/63 100 Simple Mask 10 08/01/16 14:00 71 23 90/60 100 Simple Mask 10 08/01/16 13:55 71 24 91/62 100 Simple Mask 10 08/01/16 13:50 70 28 91/60 100 Simple Mask 10 08/01/16 13:45 36.3 70 30 96/67 100 Simple Mask 10 08/01/16 11:50 36.9 82 12 96/61 96 Room Air 08/01/16 10:41 78 08/01/16 07:40 85 14 94 Room Air 08/01/16 07:25 36.7 86 16 110/66 95 Room Air Anesthetic Administered: GA Level of Alertness: Sleepy, easy to arouse HUGO's with Equal Strength: Yes Pain: No Pain Scale Score: 10 Nausea or Vomiting: No CV Function & Hydration Stable: Yes Airway Device: Oralpharangeal Airway Lungs: Clear to Auscultation PACU Phase 2 Assessment Complications: No Follow up Care: N/A Patient Instructions Provided: N/A Corwin Vance MD Aug 01, 2016 14:51
--- NOTE | 2016-08-01 15:23 | PCM.PNMED ---
Subjective Date of Service Aug 01, 2016 Subjective 56-year-old man with alcohol and methamphetamine abuse, hepatitis C, NYHA class III systolic congestive heart failure, poorly controlled diabetes, chronic psychiatric disease and peripheral wound infection presents with sepsis syndrome related to right foot osteomyelitis. The patient is more alert and communicative today. He seems oriented but not fully cooperative with care, refuses blood draws due to arm pain. He endorses pain of his right foot, but seems comfortable moving around. No dyspnea. Exam Vital Signs Vital Sign - Last Date Time Temp Pulse Resp B/P Pulse Ox O2 Delivery O2 Flow Rate FiO2 08/01/16 14:43 73 14 96/65 94 Room Air 08/01/16 14:05 10 08/01/16 13:45 36.3 Intake and Output 07/31/16 07/31/16 08/01/16 Cumulative From/Thru 15:00 23:00 07:00 07/30/16 13:43 - 08/01/16 06:18 Intake Total 250 ml 1180 ml 3655 ml Output Total 375 ml 500 ml 875 ml Balance -125 ml 680 ml 2780 ml Intake Oral 250 ml 1110 ml 1360 ml IV Total 70 ml 2295 ml Output Urine Total 375 ml 500 ml 875 ml Exam General: Disheveled-appearing man, no acute distress HEENT: Edentulous, sclerae anicteric, oral mucosa dry Neck: no apparent JVD Chest: clear to auscultation Cardiac: S1S2, no murmur Abdomen: BS normal, non-tender Extremities: No pitting edema, right forefoot bandaged Neuro: A&O, cranial nerves symmetric, motor strength and coordination grossly normal IVs and Medications Medications Reviewed: Medications were reviewed in detail Lab and Diagnostics Result Diagram: 07/31/16 0455 07/31/16 0455 X-Rays, CTs and MRIs Right foot x-ray performed 07/30/2016 IMPRESSION: 1. A small linear metallic foreign body in the great toe. 2. Amputation of the second third toes. 3. Radiographs are not sensitive for early phase of osteomyelitis. If there is high clinical suspicion for osteomyelitis, a triple phase bone scan is suggested for further evaluation. Dictated by: Ryland Bone M.D. on 07/30/2016 at 16:14 . 12-lead ECG Sinus tachycardia, rate 107, QTC 454, "nonspecific repol abnormality." ST depression T-wave flattening in leads V4 through V6. . Cardiac Echo Impressions Echo report from [facility] performed 07/11/2016 Conclusions "Mild LVH and mild LV dilation with severe global LV dysfunction EF 20% Mild RV dilation with moderate RV dysfunction Trace mitral, aortic, tricuspid, pulmonic regurgitation." Full report can be found on page 45 of 62 [facility] records on paper chart. . Assessment & Plan Acute, Active or High-risk Problems: # Acute Sepsis, present on admission, treatment ongoing, White count 12.6 heart rate 114, temperature 35.8, source identified as right foot surgical wound with probable osteomyelitis. Lactic acid 1.5 on admission. Blood cultures negative. Wound cultures from [facility] showed group A strep and mixed gabo. Treated initially with vancomycin and Zosyn. MRSA negative. Discontinued Normal saline 125 mL per hour after 24 hours due to risk of further CHF - Repeat CBC in the a.m., - Infectious disease consult - Continue Zosyn 3.375 every 8 hours IV - PICC line for antibiotics and phlebotomy # Acute on Chronic Osteomyelitis, present on admission, treatment ongoing. Acute features of sepsis with increased pain. Previously identified at [facility] in [place], did not complete antibiotics and left AMA. Plain films read and additional imaging was recommended. -Podiatry consulted, we appreciate their input and recommendations -Pain management with Dilaudid orally for enthesis preferred) or IV. - Nothing by mouth after midnight on 07/31/16 for right metatarsal amputation on 08/01. # Chronic systolic congestive heart failure with compensation, present on admission, treatment restarted. Stable. Echocardiogram from [facility] states EF of 20%, with compensation. BNP is markedly elevated, baseline is uncertain - Continue carvedilol - Resumed diuretics when postoperative - Continue telemetry # Chronic Uncontrolled diabetes mellitus, not insulin using, present on admission. Globin A1c 11.3%. Serum glucose was 307 on admission. - glargine 20 units at bedtime, resulted in fasting a.m. blood glucose 185; will increase glargine - Medium dose correctional insulin scale - Continue metformin at present # Poor medical compliance. Admitted to [facility] on 07/10/16 with temperature 37.8, heart rate 102, stable blood pressure WBC count 23.3. Admission labs notable for elevated troponin I is 0.74(normal less than 0.06). Troponin sequence 0.74, 0.69, 0.72. Echo on 07/11/16 with LVEF 20% concentric LVH severe left ventricular dysfunction. Evaluated by cardiology which recommended catheterization but patient refused due to concerns over foot. LISETTE and TBI of lower extremities revealed no significant stenosis. EKG revealed nonspecific ST and T-wave changes. Foot x-rays consistent with osteomyelitis of his right second toe, subcutaneous emphysema. Wound culture revealed alpha-hemolytic strep and mixed gram-positive cocci and coccobacilli, initially. Subsequent wound culture on 07/18 revealed Pseudomonas and MSSA. Orthopedic Dr. Perez performed amputation of right second and third toe on 07/12/16. Further operative debridement on 07/18/16. The patient was agitated for medical care issues, and possibly paranoid. He elected to leave A on 07/19/16. Chronic or Stable but Actively Managed Problems: # Chronic Polysubstance abuse, present on admission, treatment initiated. States he last used methamphetamines, smoked, earlier this morning before presentation to the emergency department for pain control. Avoid central lines of possible - Social work consult for chemical dependency. # Chronic tobacco abuse and dependence, present on admission, treatment initiated. - Tobacco cessation education, counseling by M.D. at time of admission - Nicotine transdermal patches. # Elevated troponin. Troponin elevation due to cardiomyopathy and renal failure versus Non ST elevation Myocardial infarction. Present on admission. Moderately elevated troponins with flat profile were also documented during recent hospitalization at [facility]. According to records he was not cooperative with further cardiology workup. This now appears to be a stable finding which is not likely related to acute ischemia. - discontinue Heparin drip - continue Aspirin for antiplatelet therapy Pain management IV or preferably by mouth Dilaudid DVT prophylaxis: Heparin drip until anticoagulated bridge to warfarin Bowel regimen as needed Patient admitted under inpatient status with expected length of stay 3-5 days for severity of present symptoms, complexities of treatment plan and risk for adverse events. GI Prophylaxis: Not indicated VTE Prophylaxis: Other (heparin drip) Resuscitation Status: CPR: Attempt Resuscitation Time spent 40 minutes Amadeo Mariano MD Aug 01, 2016 15:23
[2016-08-01] MEDS ORDERED: Furosemide 10 mg/mL 4 mL Inj IVPUSH ONE (17:00)
[2016-08-01] MEDS: OLANZapine Zydis ODT 5 mg Tablet PO SCH (19:44)
[2016-08-01] MEDS ORDERED: Insulin GLARgine 100 Unit/mL Syringe SUBQ SCH (21:00)
--- NOTE | 2016-08-01 21:45 | NUR ---
BLOOD SUGARS/PAIN Pt c/o right foot pain, gave PO Dilaudid with good results. Pt's BS 188, gave scheduled 26 units Lantus with no correctional dose. Pt denied physical assessment of right foot due to severe pain, but was otherwise cooperative with care. No other issues noted at this time. Addendum: 08/02/16 at 0359 by MAXINE SLADE RN 3 am blood sugars 214
[2016-08-02] VITALS (7 sets, daily range): BP systolic 89–126; BP diastolic 53–79; PULSE 79–99; RESP 15–18; O2SAT 90–98
[2016-08-02] MEDS: Piperacillin-Tazo 3.375 Gm Inj 3.375 GM in Dextrose 5% Minibag Plus 50 ML IV SCH ×3 (00:23→17:44)
[2016-08-02 02:05] LABS: BASOPHILS % (AUTO) 0.4 % (0-3); EOSINOPHILS % (AUTO) 4.1 % (0-5); MONOCYTES % (AUTO) 8.7 % (4-12); Mean Corpuscular Hemoglobin 27.5 pg (27.0-35.0); Mean Corpuscular Volume 84.3 fL (81-100); NEUTROPHILS % (AUTO) 72.2 % (40-74); Platelet Count 223 bil/L (150-400)
[2016-08-02] MEDS ORDERED: Insulin Human NPH 100 Unit/mL 3 mL Inj SUBQ ONE (07:50)
[2016-08-02] MEDS: Insulin LISPRO 300 Unit/3 mL Inj SUBQ SCH ×4 (08:00→21:22)
[2016-08-02] MEDS: Sodium Chloride LOK Flush 10 mL Syringe IVFLUSH SCH ×4 (08:30→16:30)
[2016-08-02] MEDS: Polyethylene Glycol (PEG) 17 Gm Powder PO SCH (08:30)
[2016-08-02] MEDS: Multivit-Miner-Folic Acid-Iron Tablet PO SCH (09:02)
[2016-08-02] MEDS: Potassium Chloride 20 mEq/15 mL 15mL Oral Soln PO SCH (09:03)
--- NOTE | 2016-08-02 09:29 | DRSVH ---
PROCEDURE: X-RAY PICC LINE PLACEMENT BY NURSE ([id number]) INDICATIONS: POOR VENOUS ACCESS COMPARISON: None. FINDINGS: PICC was placed by the intravenous therapy team from the left side. Fluoroscopic spot leighann m demonstrates tip projected over the lower SVC. IMPRESSION: Tip of PICC projected over the lower SVC . Dictated by: Shun JESSICA Interpreted: Ryland Bone MD on 08/01/2016 at 15:55 Approved by: Ryland Bone M.D. on 08/02/2016 at 9:27
--- NOTE | 2016-08-02 10:20 | PROG NOTE ---
[address] [address] PROGRESS NOTE PATIENT: ROCIO MCKEON : 1960 MR#: [id number] ADMIT: 07/30/2016 JOB ID: [id number] DATE: 08/02/2016 INFECTIOUS DISEASE FOLLOWUP NOTE: REASON FOR FOLLOWUP: Complex right diabetic foot infection with osteomyelitis and necrosis. INTERVAL HISTORY: Recall this is a gentleman who was up at a [facility] and had the 2nd and 3rd toes on the right resected. He then signed out AMA and missed a week of antibiotics, and came back here with some obvious necrosis and additional infection of the right forefoot. Yesterday, he was taken back to the operating room and an additional debridement was performed but a TMA was not done. Today, we see the patient. He is still in the [facility]. The patient reports he is not having fevers or chills. He has no significant respiratory or GI symptoms. He has minimal pain in his right foot. PHYSICAL EXAMINATION: Reveals an afebrile gentleman. Temp 36.9, pulse 86, respiratory rate 15. Blood pressure 101/64. Saturating only 90% on room air. The patient is awake and alert but not extremely conversational. Lungs are clear. Cardiac tones: Regular rate and rhythm. Abdomen: Benign. His right foot is dressed in a postop type dressing. LABORATORY STUDIES: Include white count of 12,000, which is really not much changed from admission. His creatinine is 1. BNP was 16,000. CRP 2.1. HIV negative. Blood cultures are negative. Cultures from the foot debridement have a few polys and a few gram-positive cocci and are pending. Recall that at [place] he grew MSSA and a variety of other organisms from his cultures but never grew MRSA and both at [place] and here, his MRSA screen of the nares have been negative. Note that a PICC line was installed yesterday. We reviewed the operative note from Dr. Vaz. She reports that she performed a wide debridement of necrotic ulcer. The total wound size was 8.5 x 7 cm x 2.5 cm deep at the end of the debridement, so truly a massive tissue defect. IMPRESSION: A polymicrobial diabetic foot infection, which has so far required a series of debridements and the amputation of two toes. The predominant organism here is likely to be Staphylococcus aureus, though we await our followup cultures. RECOMMENDATIONS: 1. Will continue with his antibiotic, which currently includes Zosyn at this point. 2. Additional changes in antibiotics will be contingent on the followup wound cultures. 3. Will continue to follow this case with you.
--- NOTE | 2016-08-02 10:55 | NUR ---
Transfer Pt transferred from [facility] room 2013 to [facility] room 1005. Pt A&Ox3. HGUO. Dressing is C/D/I cap refill WNL and extremity pink and warm to touch. Pt sleeping but awakens to questions. Denies pain or nausea. IV TKO. Oriented to room. Call light within reach. Care continues.
--- NOTE | 2016-08-02 12:02 | PCM.PNMED ---
Subjective Date of Service Aug 02, 2016 Subjective 56-year-old man with alcohol and methamphetamine abuse, hepatitis C, NYHA class III systolic congestive heart failure, poorly controlled diabetes, chronic psychiatric disease and peripheral wound infection presents with sepsis syndrome related to right foot osteomyelitis. The patient is more calm and cooperative. He endorses pain of his right foot, but seems comfortable moving around. No dyspnea. No abdominal complaint. Exam Vital Signs Vital Sign - Last Date Time Temp Pulse Resp B/P Pulse Ox O2 Delivery O2 Flow Rate FiO2 08/02/16 11:09 36.1 79 18 94/57 97 Room Air 08/01/16 14:05 10 Intake and Output 08/01/16 08/01/16 08/02/16 Cumulative From/Thru 15:00 23:00 07:00 07/30/16 13:43 - 08/02/16 05:09 Intake Total 500 ml 790 ml 320 ml 5265 ml Output Total 10 ml 1450 ml 700 ml 3035 ml Balance 490 ml -660 ml -380 ml 2230 ml Intake Oral 740 ml 200 ml 2300 ml IV Total 500 ml 50 ml 120 ml 2965 ml Output Urine Total 1450 ml 700 ml 3025 ml Estimated Blood Loss 10 ml 10 ml # Bowel Movements 0 0 Exam General: Middle-age man man, no acute distress HEENT: Edentulous, sclerae anicteric, oral mucosa dry Neck: no JVD Chest: clear to auscultation Cardiac: S1S2, no murmur Abdomen: BS normal, non-tender Extremities: No pitting edema, right forefoot bandaged Neuro: A&O, cranial nerves symmetric, motor strength and coordination grossly normal IVs and Medications Medications Reviewed: Medications were reviewed in detail Lab and Diagnostics Result Diagram: 08/02/16 0200 08/02/16 0200 X-Rays, CTs and MRIs Right foot x-ray performed 07/30/2016 IMPRESSION: 1. A small linear metallic foreign body in the great toe. 2. Amputation of the second third toes. 3. Radiographs are not sensitive for early phase of osteomyelitis. If there is high clinical suspicion for osteomyelitis, a triple phase bone scan is suggested for further evaluation. Dictated by: Ryland Bone M.D. on 07/30/2016 at 16:14 . 12-lead ECG Sinus tachycardia, rate 107, QTC 454, "nonspecific repol abnormality." ST depression T-wave flattening in leads V4 through V6. . Cardiac Echo Impressions Echo report from [facility] performed 07/11/2016 Conclusions "Mild LVH and mild LV dilation with severe global LV dysfunction EF 20% Mild RV dilation with moderate RV dysfunction Trace mitral, aortic, tricuspid, pulmonic regurgitation." Full report can be found on page 45 of 62 [facility] records on paper chart. . Assessment & Plan Acute, Active or High-risk Problems: # Acute Sepsis, present on admission, treatment ongoing, White count 12.6 heart rate 114, temperature 35.8, source identified as right foot surgical wound with probable osteomyelitis. Lactic acid 1.5 on admission. Blood cultures negative. Wound cultures from [facility] showed group A strep and mixed gabo. Treated initially with vancomycin and Zosyn. MRSA negative. Discontinued Normal saline 125 mL per hour after 24 hours due to risk of further CHF - Repeat CBC in the a.m., - Infectious disease consult is following - Continue Zosyn 3.375 every 8 hours IV - PICC line for antibiotics and phlebotomy # Acute on Chronic Osteomyelitis, present on admission, treatment ongoing. Acute features of sepsis with increased pain. Previously identified at [facility] in [place], did not complete antibiotics and left AMA. Plain films read and additional imaging was recommended. Dr. Vaz from Podiatry consulted, performed operative debridement on 08/01. - Pain management with Dilaudid orally for enthesis preferred) or IV. # Chronic systolic congestive heart failure with compensation, present on admission, treatment restarted. Stable. Echocardiogram from [facility] states EF of 20%, with compensation. BNP is markedly elevated, baseline is uncertain. He has no dyspnea or orthopnea. - Continue carvedilol - Resumed diuretics Lasix 40 mg by mouth daily - Okay to discontinue telemetry # Chronic Uncontrolled diabetes mellitus, not insulin using, present on admission. Globin A1c 11.3%. Serum glucose was 307 on admission. - Goal glucose is less than 180 to optimize wound healing - glargine 34 units at bedtime, resulted in fasting a.m. blood glucose 118 - Medium dose correctional insulin scale - Continue metformin at present # Poor medical compliance. Admitted to [facility] on 07/10/16 with temperature 37.8, heart rate 102, stable blood pressure WBC count 23.3. Admission labs notable for elevated troponin I is 0.74(normal less than 0.06). Troponin sequence 0.74, 0.69, 0.72. Echo on 07/11/16 with LVEF 20% concentric LVH severe left ventricular dysfunction. Evaluated by cardiology which recommended catheterization but patient refused due to concerns over foot. LISETTE and TBI of lower extremities revealed no significant stenosis. EKG revealed nonspecific ST and T-wave changes. Foot x-rays consistent with osteomyelitis of his right second toe, subcutaneous emphysema. Wound culture revealed alpha- hemolytic strep and mixed gram-positive cocci and coccobacilli, initially. Subsequent wound culture on 07/18 revealed Pseudomonas and MSSA. Orthopedic Dr. Perez performed amputation of right second and third toe on 07/12/16. Further operative debridement on 07/18/16. The patient was agitated for medical care issues, and possibly paranoid. He elected to leave AMA on 07/19/16. Chronic or Stable but Actively Managed Problems: # Chronic Polysubstance abuse, present on admission, treatment initiated. States he last used methamphetamines, smoked, earlier this morning before presentation to the emergency department for pain control. Avoid central lines of possible - Social work consult for chemical dependency. # Chronic tobacco abuse and dependence, present on admission, treatment initiated. - Tobacco cessation education, counseling by M.Estefania. at time of admission - Nicotine transdermal patches. # Elevated troponin. Troponin elevation due to cardiomyopathy and renal failure versus Non ST elevation Myocardial infarction. Present on admission. Moderately elevated troponins with flat profile were also documented during recent hospitalization at [facility]. According to records he was not cooperative with further cardiology workup. This now appears to be a stable finding which is not likely related to acute ischemia. Discontinued Heparin drip. - continue Aspirin for antiplatelet therapy Pain management IV or preferably by mouth Dilaudid DVT prophylaxis: Heparin drip until anticoagulated bridge to warfarin Bowel regimen as needed Patient admitted under inpatient status with expected length of stay 3-5 days for severity of present symptoms, complexities of treatment plan and risk for adverse events. GI Prophylaxis: Not indicated VTE Prophylaxis: Other (heparin drip) Resuscitation Status: CPR: Attempt Resuscitation Time spent 35 minutes Amadeo Mariano MD Aug 02, 2016 12:02
--- NOTE | 2016-08-02 17:05 | PCM.PNPOD ---
Subjective Date of Service: Aug 02, 2016 Date of Service: Aug 02, 2016 Visit Information: Reason for Visit Osteomyelitis Of The Right Foot Surgery/Surgery Date Post-Op Day # Date of Admission: Jul 30, 2016 at 19:39 Hospital Day # Subjective: Postop day 1 status post washout and debridement with partial second and third ray resection. Patient denies any new issues or complaints overnight he denies any significant discomfort associated with his right foot. Objective Vital Sign - Last Date Time Temp Pulse Resp B/P Pulse Ox O2 Delivery O2 Flow Rate FiO2 08/02/16 13:11 36.4 79 18 95/60 96 Room Air 08/01/16 14:05 10 Intake and Output 08/01/16 08/01/16 08/02/16 Cumulative From/Thru 15:00 23:00 07:00 07/30/16 13:43 - 08/02/16 05:09 Intake Total 500 ml 790 ml 320 ml 5265 ml Output Total 10 ml 1450 ml 700 ml 3035 ml Balance 490 ml -660 ml -380 ml 2230 ml Intake Oral 740 ml 200 ml 2300 ml IV Total 500 ml 50 ml 120 ml 2965 ml Output Urine Total 1450 ml 700 ml 3025 ml Estimated Blood Loss 10 ml 10 ml # Bowel Movements 0 0 Result Diagram: 08/02/16 0200 08/02/16 0200 Lab Test 07/30/16 16:23 07/31/16 04:55 07/31/16 09:21 07/31/16 09:50 Erythrocyte Sedimentation Rate 41mm/hr (0-30) Prothrombin Time 10.0sec (8.1-12.5) Prothromb Time International Ratio 0.94ratio Hemoglobin A1c 11.3% (4.8-5.6) Lactic Acid Level 1.5mmol/L (0.4-2.0) Phosphorus Level 2.5mg/dL (2.5-4.9) Magnesium Level 1.5mg/dL (1.6-2.6) Total Bilirubin 0.4mg/dL (0.0-1.2) Aspartate Amino Transf (AST/SGOT) 38U/L (0-50) Alanine Aminotransferase (ALT/SGPT) 24U/L (0-44) Alkaline Phosphatase 154U/L (25-150) Total Protein 7.2g/dL (6.4-8.4) Albumin 3.3g/dL (3.4-5.0) Lipase 53U/L (13-60) Procalcitonin 0.04ng/mL (0.00-0.08) Troponin T 0.351ug/L (0.0-0.011) Urine Color Yellow (YELLOW) Urine Appearance Clear (CLEAR,HAZY) Urine pH 6.0 (5.0-8.0) Urine Specific [place] 1.025 (1.003-1.035) Urine Protein 100mg/dL (NEG,TRACE) Urine Glucose (UA) 1000mg/dL (NEGATIVE) Urine Ketones Negativemg/dL (NEGATIVE) Urine Occult Blood Trace (NEGATIVE) Urine Nitrite Negative (NEGATIVE) Urine Bilirubin Negative (NEGATIVE) Urine Urobilinogen Normalmg/dL (NORMAL) Urine Leukocyte Esterase Negative (NEGATIVE) Urine RBC 3-10/hpf (0-2) Urine WBC 0-5/hpf (0-5) Urine Epithelial Cells Occasional/hpf (NONE-MOD) Urine Crystals None seen (NONE SEEN) Urine Bacteria None/hpf (NONE-FEW) Urine Hyaline Casts None/lpf (NONE) Urine Granular Casts None seen (NONE SEEN) Urine Waxy Casts None seen (NONE SEEN) Urine Red Blood Cell Casts None seen (NONE SEEN) Urine White Blood Cell Casts None seen (NONE SEEN) Urine Mucus Present (None Seen) Urine Trichomonas None seen (NONE SEEN) Urine Yeast None (NONE SEEN) Urinalysis Comment Urine Culture Reflexed Not indicated Urine Opiates Screen Negative Urine Methadone Screen Negative Urine Barbiturates Screen Negative Urine Amphetamines Screen Positive Urine Benzodiazepines Screen Negative Urine Cocaine Metabolite Screen Negative Urine Cannabinoids Screen Negative C-Reactive Protein 2.1mg/dL (0.0-0.5) Pro-B-Type Natriuretic Peptide 51183yp/mL (0-210) HIV (1&2) Ag and Ab, 4th Generation Non reactive (Non Reactive) Test 07/31/16 10:45 08/02/16 02:00 Activated Partial Thromboplast Time 38.5sec (22.8-33.0) White Blood Count 12.6th/mm3 (3.8-10.1) Red Blood Count 3.63mil/mm3 (4.40-5.80) Hemoglobin 10.0g/dL (13.8-17.2) Hematocrit 30.6% (41.0-50.0) Mean Corpuscular Volume 84.3fL (81-100) Mean Corpuscular Hemoglobin 27.5pg (27.0-35.0) Mean Corpuscular Hemoglobin Concent 32.7% (32.0-37.0) Red Cell Distribution Width 18.3% (12.3-15.4) Platelet Count 223bil/L (150-400) Neutrophils (%) (Auto) 72.2% (40-74) Lymphocytes (%) (Auto) 14.3% (14-46) Monocytes (%) (Auto) 8.7% (4-12) Eosinophils (%) (Auto) 4.1% (0-5) Basophils (%) (Auto) 0.4% (0-3) Sodium Level 136mEq/L (134-144) Potassium Level 4.1mEq/L (3.5-5.2) Chloride Level 99mEq/L (97-108) Carbon Dioxide Level 24mmol/L (18-29) Blood Urea Nitrogen 18mg/dL (6-24) Creatinine 1.02mg/dL (0.76-1.27) Estimat Glomerular Filtration Rate 80mL/min (>59) Glucose Level 214mg/dL (60-99) Calcium Level 9.1mg/dL (8.5-10.1) Exam General: Alert, Oriented X3, Cooperative Lungs: Clear to Auscultation Lower Extremities: Right: Edema localized Extremity warm Lower Extremity Pulses: Palpable: Left Dorsalis Pedis Left Posterior Tibal Right Posterior Tibal Doppler: Right Dorsalis Pedis Podiatry WOUND : Wound Location/Description Right dorsal second and third metatarsal defect full-thickness to subcutaneous tissue without exposed bone there is exposed tendon there is no malodor the wound edges are mildly macerated proximally there is a moderate amount of serosanguineous drainage. Minimal tissue necrosis is noted of the medial wall of the wound. Fibrotic slough is prevalent distally. Multiple superficial ulcerations of the right ankle and foot without extension to deep tissue Surgical Cast or Splint: None Assessment & Plan Impression Stable status post second and third ray resection with large diabetic ulceration of the right dorsal foot Problems: (1) Osteomyelitis of right foot Qualifiers: Osteomyelitis type: other acute Qualified Code: M86.171 - Other acute osteomyelitis, right ankle and foot Plan: Dressing changed today. The wound was flushed with normal saline. This wound was dressed with moist to dry saline soaked gauze Kerlix and a loosely applied Lairio bandage. No purulent drainage was noted today. This dressing will continue to be changed by the podiatry service every 24 hours. This patient is strictly nonweightbearing to his right foot at this time. Dr. Cazares will resume care tomorrow. Status: Acute ICD Code: M86.9 VTE Prophylaxis: Other (heparin drip) Thiago Cordoba DPM Aug 02, 2016 17:05
[2016-08-02] MEDS: OLANZapine Zydis ODT 5 mg Tablet PO SCH (21:21)
[2016-08-02] MEDS: Insulin GLARgine 100 Unit/mL Syringe SUBQ SCH (21:23)
[2016-08-03] MEDS: Piperacillin-Tazo 3.375 Gm Inj 3.375 GM in Dextrose 5% Minibag Plus 50 ML IV SCH ×3 (00:45→16:40)
[2016-08-03] MEDS: Sodium Chloride LOK Flush 10 mL Syringe IVFLUSH SCH ×6 (00:45→16:30)
[2016-08-03 04:57] VITALS: BP 119/74; PULSE 75; RESP 18; O2SAT 98
[2016-08-03 05:23] LABS: BASOPHILS % (AUTO) 0.4 % (0-3); EOSINOPHILS % (AUTO) 8.5 % (0-5); MONOCYTES % (AUTO) 11.8 % (4-12); Mean Corpuscular Hemoglobin 27.6 pg (27.0-35.0); Mean Corpuscular Volume 84.6 fL (81-100); NEUTROPHILS % (AUTO) 45.8 % (40-74); Platelet Count 204 bil/L (150-400)
[2016-08-03 08:31] VITALS: PULSE 84; RESP 16; O2SAT 95
[2016-08-03] MEDS: Polyethylene Glycol (PEG) 17 Gm Powder PO SCH (09:03)
[2016-08-03] MEDS: Insulin LISPRO 300 Unit/3 mL Inj SUBQ SCH ×4 (09:05→22:00)
[2016-08-03 12:23] VITALS: BP 120/76; PULSE 76; RESP 16; O2SAT 95
[2016-08-03] MEDS: Multivit-Miner-Folic Acid-Iron Tablet PO SCH (12:27)
[2016-08-03] MEDS: Potassium Chloride 20 mEq/15 mL 15mL Oral Soln PO SCH (12:27)
--- NOTE | 2016-08-03 12:31 | NUR ---
AM meds/vomiting Pt had 150ml emesis after eating breakfast, AM medications held until pt feeling better. Pt declined anti-emetics and wanted to sleep. Medications given at lunch time. Pt prefers care to be clustered and to let him sleep. Bed in low, call light in reach, continue to monitor.
--- NOTE | 2016-08-03 12:45 | PCM.PNPOD ---
Subjective Date of Service: Aug 03, 2016 Visit Information: Reason for Visit Osteomyelitis Of The Right Foot Surgery/Surgery Date debridement of tissue at the level of the second and third transmetatarsal amputation 08/01/2016 Post-Op Day # 2 Date of Admission: Jul 30, 2016 at 19:39 Subjective: The patient is seen at bedside today, cooperating, more alert and responding appropriately. Postop General: No Complaints Gastrointestinal: Good Appetite Pain Management: PO Neurological: Numbness (and lower extremities) Objective Vital Sign - Last Date Time Temp Pulse Resp B/P Pulse Ox O2 Delivery O2 Flow Rate FiO2 08/03/16 12:23 36.5 76 16 120/76 95 Room Air 08/01/16 14:05 10 Intake and Output 08/02/16 08/02/16 08/03/16 Cumulative From/Thru 15:00 23:00 07:00 07/30/16 13:43 - 08/03/16 06:33 Intake Total 840 ml 899 ml 7004 ml Output Total 1800 ml 750 ml 5585 ml Balance -960 ml 149 ml 1419 ml Intake Oral 840 ml 680 ml 3820 ml IV Total 219 ml 3184 ml Output Urine Total 1800 ml 750 ml 5575 ml Estimated Blood Loss 10 ml # Bowel Movements 0 0 Result Diagram: 08/03/16 0515 08/03/16 0515 Lab Test 07/30/16 16:23 07/31/16 04:55 07/31/16 09:21 07/31/16 09:50 Erythrocyte Sedimentation Rate 41mm/hr (0-30) Prothrombin Time 10.0sec (8.1-12.5) Prothromb Time International Ratio 0.94ratio Hemoglobin A1c 11.3% (4.8-5.6) Lactic Acid Level 1.5mmol/L (0.4-2.0) Phosphorus Level 2.5mg/dL (2.5-4.9) Magnesium Level 1.5mg/dL (1.6-2.6) Total Bilirubin 0.4mg/dL (0.0-1.2) Aspartate Amino Transf (AST/SGOT) 38U/L (0-50) Alanine Aminotransferase (ALT/SGPT) 24U/L (0-44) Alkaline Phosphatase 154U/L (25-150) Total Protein 7.2g/dL (6.4-8.4) Albumin 3.3g/dL (3.4-5.0) Lipase 53U/L (13-60) Procalcitonin 0.04ng/mL (0.00-0.08) Troponin T 0.351ug/L (0.0-0.011) Urine Color Yellow (YELLOW) Urine Appearance Clear (CLEAR,HAZY) Urine pH 6.0 (5.0-8.0) Urine Specific [place] 1.025 (1.003-1.035) Urine Protein 100mg/dL (NEG,TRACE) Urine Glucose (UA) 1000mg/dL (NEGATIVE) Urine Ketones Negativemg/dL (NEGATIVE) Urine Occult Blood Trace (NEGATIVE) Urine Nitrite Negative (NEGATIVE) Urine Bilirubin Negative (NEGATIVE) Urine Urobilinogen Normalmg/dL (NORMAL) Urine Leukocyte Esterase Negative (NEGATIVE) Urine RBC 3-10/hpf (0-2) Urine WBC 0-5/hpf (0-5) Urine Epithelial Cells Occasional/hpf (NONE-MOD) Urine Crystals None seen (NONE SEEN) Urine Bacteria None/hpf (NONE-FEW) Urine Hyaline Casts None/lpf (NONE) Urine Granular Casts None seen (NONE SEEN) Urine Waxy Casts None seen (NONE SEEN) Urine Red Blood Cell Casts None seen (NONE SEEN) Urine White Blood Cell Casts None seen (NONE SEEN) Urine Mucus Present (None Seen) Urine Trichomonas None seen (NONE SEEN) Urine Yeast None (NONE SEEN) Urinalysis Comment Urine Culture Reflexed Not indicated Urine Opiates Screen Negative Urine Methadone Screen Negative Urine Barbiturates Screen Negative Urine Amphetamines Screen Positive Urine Benzodiazepines Screen Negative Urine Cocaine Metabolite Screen Negative Urine Cannabinoids Screen Negative C-Reactive Protein 2.1mg/dL (0.0-0.5) Pro-B-Type Natriuretic Peptide 90813aj/mL (0-210) HIV (1&2) Ag and Ab, 4th Generation Non reactive (Non Reactive) Test 07/31/16 10:45 08/03/16 05:15 Activated Partial Thromboplast Time 38.5sec (22.8-33.0) White Blood Count 7.9th/mm3 (3.8-10.1) Red Blood Count 3.51mil/mm3 (4.40-5.80) Hemoglobin 9.7g/dL (13.8-17.2) Hematocrit 29.7% (41.0-50.0) Mean Corpuscular Volume 84.6fL (81-100) Mean Corpuscular Hemoglobin 27.6pg (27.0-35.0) Mean Corpuscular Hemoglobin Concent 32.7% (32.0-37.0) Red Cell Distribution Width 17.9% (12.3-15.4) Platelet Count 204bil/L (150-400) Neutrophils (%) (Auto) 45.8% (40-74) Lymphocytes (%) (Auto) 33.1% (14-46) Monocytes (%) (Auto) 11.8% (4-12) Eosinophils (%) (Auto) 8.5% (0-5) Basophils (%) (Auto) 0.4% (0-3) Sodium Level 136mEq/L (134-144) Potassium Level 3.8mEq/L (3.5-5.2) Chloride Level 96mEq/L (97-108) Carbon Dioxide Level 27mmol/L (18-29) Blood Urea Nitrogen 21mg/dL (6-24) Creatinine 1.18mg/dL (0.76-1.27) Estimat Glomerular Filtration Rate 68mL/min (>59) Glucose Level 220mg/dL (60-99) Calcium Level 8.9mg/dL (8.5-10.1) Exam General: Alert, Oriented X3, Cooperative Lower Extremities: Right: Edema localized (diminishing) Extremity warm (improved erythema) Lower Extremity Pulses: Palpable: Left Dorsalis Pedis Left Posterior Tibal Right Posterior Tibal Doppler: Right Dorsalis Pedis Podiatry WOUND : Wound Location/Description Open postoperative dorsal wound, granulating in nicely at the proximal aspect. Granulation tissue is now covering over the metatarsal stumps. The distal portion of the open wound is still fibrous at the level of the previous metatarsophalangeal joint articulation. There is no josephine purulence or necrosis noted. The foot is warmer to touch and much better perfused today than several days ago. The remaining wound is now approximately 8 x 6.5 cm and 2.5 cm deep. Tendon tissue was exposed in the lateral aspect of the wound towards the fourth toe. Others superficial abrasions are present around the ankle, those are also improving. Surgical Cast or Splint: None Assessment & Plan Problems: (1) Osteomyelitis of right foot Qualifiers: Osteomyelitis type: other acute Qualified Code: M86.171 - Other acute osteomyelitis, right ankle and foot Plan: Dressing changed today, normal saline moistened gauze, ABDs pad, Kerlix, Alirio wrap. The patient is going to have daily dressing changes in the same manner performed for the next 3 days or so. My goal is to take him back to the operating room on Saturday to complete the transmetatarsal amputation and primarily close it. The patient is at high risk for further infections and limb loss, if the decision were made to maintain this open wound in secondarily heal the partial foot amputation. I explained to him today that removing the remaining toes would yield a better stump and the more shoeable foot with less chance of prolonged wound care and recurrent infections that could task his other organs and potentially lead to further complications, with the same or worse prognosis for the foot in the future. The patient stated understanding of the need to proceed to transmetatarsal amputation, if that would mean primary closure in the would not have to live outpatient with an open wound. His closest outpatient wound care center is in [place] and he would rather not have to go through that. Status: Acute ICD Code: M86.9 VTE Prophylaxis: Other (heparin drip) Phoebe Vaz DPM Aug 03, 2016 12:45
--- NOTE | 2016-08-03 13:20 | PROG NOTE ---
[address] [address] PROGRESS NOTE PATIENT: ROCIO MCKEON : 1960 MR#: [id number] ADMIT: 07/30/2016 JOB ID: [id number] DATE: 08/03/2016 REASON FOR FOLLOWUP: Severe infection in a diabetic gentleman with a poor ejection fraction. INTERVAL HISTORY: The patient reports no fevers, chills, or sweats. He has had no nausea vomiting, diarrhea, or shortness of breath. PHYSICAL EXAMINATION: Reveals a reasonably comfortable gentleman. Temp 36.5, pulse 76, respiratory rate 16, blood pressure 120/76. He is saturating well on room air. His lungs are clear. His abdomen is benign, and his foot was carefully examined with Dr. Vaz. We removed all the dressings from his right foot. The patient has a large defect on his proximal foot above the 2nd and 3rd rays. His 2nd and 3rd toes have been completely removed. The wound is quite large and occupies a considerable part of the dorsal middle of the remaining foot. There is good granulation tissue proximally and some yellow slough distally which Dr. Vaz plans to debride. Her plan is to continue to aggressively try and control this infection and then take the patient back for a TMA which will be much more functional in terms of his ability to walk and also will speed the healing of this huge wound. LABORATORIES: Include white blood count 7900 today which is the first time it has been normal, 8% eosinophils likely due to antibiotics. His creatinine is 1.18. HIV negative. The foot cultures from [facility] during his recent admission from which he left against medical advice grew MSSA Pseudomonas and anaerobes. The culture here is so far growing a gram-negative neda which has not yet been fully characterized. No anaerobes have been seen. IMPRESSION: This is an unfortunate gentleman with a severe diabetic foot infection who underwent resection of two toes so far. In [facility], a variety of organisms were isolated, but the most important of these would be methicillin-sensitive Staphylococcus aureus. Here, we are waiting on final culture results, but the patient seems to be doing well with Zosyn as the sole antibiotic. Note that the patient has low cardiac output with probable cardiomyopathy, as well as multiple underlying problems, including diabetes. His wound healing is likely to be very difficult, both because of poor forward flow from his heart, as well as his diabetes. I agree with Dr. Vaz that converting this to a transmetatarsal amputation probably offers him the best chance for a functional foot. RECOMMENDATIONS: 1. Will continue with Zosyn over the weekend. 2. Will await the final cultures before settling on an outpatient IV antibiotic program which will of course not really be started until after the TMA is done.
--- NOTE | 2016-08-03 16:30 | DRSVH ---
PROCEDURE: US VEINOUS LEG DUPLEX UNILATERAL, RIGHT INDICATIONS: SWELLING TECHNIQUE: Real-time imaging, as well as color and pulse Doppler interrogation, were performed of the lower extr emity deep veins from the inguinal ligament to the popliteal fossa. COMPARISON: None. FINDINGS: The deep veins are normally compressible, and free of intraluminal thrombus. Color and pu lse Doppler demonstrate normal phasic intraluminal flow. There is normal augmentation response to di stal compression maneuver. 6 mm morphologically normal appearing lymph node noted within the right g roin. IMPRESSION: No deep venous thrombosis identified within the right lower extremity. Dictated by: Shun JESSICA Interpreted: Naif Pittman MD on 08/03/2016 at 15:37 Approved by: Naif Pittman M.D. on 08/03/2016 at 16:28
--- NOTE | 2016-08-03 16:31 | DRSVH ---
PROCEDURE: US DUPLEX DOPPLER UNILATERAL LEG ARTERIES, RIGHT INDICATIONS: right leg swelling TECHNIQUE: Color and pulse Doppler interrogation was performed of the right lower extremity arterial system, wit h image documentation. COMPARISON: None. FINDINGS: Vascular Ultrasound Procedure Report Findings(Artery of Lower Extremity)(Right) Common Femoral Artery(Distal) Velocity: 75.70 cm/s Profunda Femoris Artery(Proximal) Velocity: 94.30 cm/s Superficial Femoral Artery(Proximal) Velocity: 108.60 cm/s Superficial Femoral Artery(Mid-longitudinal) Velocity: 67.80 cm/s Superficial Femoral Artery(Distal) Velocity: 83.60 cm/s Popliteal Artery(Mid-longitudinal) Velocity: 61 cm/s Posterior Tibial Artery(Distal) Velocity: 83 cm/s Dorsalis Pedis Artery(Distal) Velocity: 54 cm/s Greyscale findings: Mild scattered plaque. IMPRESSION: No hemodynamically significant right lower extremity peripheral arterial stenosis. Dictated by: Shun JESSICA Interpreted: Naif Pittman MD on 08/03/2016 at 15:57 Approved by: Naif Pittman M.D. on 08/03/2016 at 16:29
[2016-08-03 21:15] VITALS: BP 102/64; PULSE 79; RESP 16; O2SAT 95
[2016-08-03] MEDS: OLANZapine Zydis ODT 5 mg Tablet PO SCH (21:30)
--- NOTE | 2016-08-03 22:13 | PCM.PNMED ---
Subjective Date of Service Aug 03, 2016 Subjective Patient is seen and examined. He is sleeping heavily and then woken up and he tells me not to just take 2 largely because he can hear just fine. He says that sleeping is better and experiencing pain, but also since he has no pain. He is bearing weight on his heel on the right leg, says no one told him not to. [facility] waiting for final sensitivities on his foot cultures before getting discharged. He just Transferred from the [facility] to [facility] [facility] Exam Vital Signs Vital Sign - Last Date Time Temp Pulse Resp B/P Pulse Ox O2 Delivery O2 Flow Rate FiO2 08/03/16 12:23 36.5 76 16 120/76 95 Room Air 08/01/16 14:05 10 Intake and Output 08/02/16 08/02/16 08/03/16 Cumulative From/Thru 15:00 23:00 07:00 07/30/16 13:43 - 08/03/16 06:33 Intake Total 840 ml 899 ml 7004 ml Output Total 1800 ml 750 ml 5585 ml Balance -960 ml 149 ml 1419 ml Intake Oral 840 ml 680 ml 3820 ml IV Total 219 ml 3184 ml Output Urine Total 1800 ml 750 ml 5575 ml Estimated Blood Loss 10 ml # Bowel Movements 0 0 Exam General: NAD, sleeping HEENT: NCAT, poor dentition Eyes: [place] conjunctivae. No ptosis, Neck: No masses, trachea midline, no thyromegaly Lungs: CTA with normal respiratory effort, no crackles or wheezes CV: RRR, no murmurs/rubs/gallops, normal PMI GI: Soft, non-tender with no hepatosplenomegaly Skin: Warm and dry. No rash, lesions or ulcers Psych: A&O X3, with appropriate affect IVs and Medications Medications Reviewed: Medications were reviewed in detail Lab and Diagnostics Result Diagram: 08/03/1651408/03/16514 X-Rays, CTs and MRIs Right foot x-ray performed 07/30/2016 IMPRESSION: 1. A small linear metallic foreign body in the great toe. 2. Amputation of the second third toes. 3. Radiographs are not sensitive for early phase of osteomyelitis. If there is high clinical suspicion for osteomyelitis, a triple phase bone scan is suggested for further evaluation. Dictated by: Ryland Bone M.D. on 07/30/2016 at 16:14 . 12-lead ECG Sinus tachycardia, rate 107, QTC 454, "nonspecific repol abnormality." ST depression T-wave flattening in leads V4 through V6. . Cardiac Echo Impressions Echo report from [facility] performed 07/11/2016 Conclusions "Mild LVH and mild LV dilation with severe global LV dysfunction EF 20% Mild RV dilation with moderate RV dysfunction Trace mitral, aortic, tricuspid, pulmonic regurgitation." Full report can be found on page 45 of 62 [facility] records on paper chart. . Assessment & Plan Acute, Active or High-risk Problems: #Rest Leg Syndrome, acutely worsened chornic problem: Pramipexole 1.25 mg PO BID # Headaches -- Benadryl 25 mg PO Q6HPRN # Upper GI Bleed: One time dark brown emesis per pt, recent EGD did not show any active bleeding -- Protonix 40 mg BIDAC IV -- Carafate 1 g QID # Acute Sepsis, present on admission, treatment ongoing, White count 12.6 heart rate 114, temperature 35.8, source identified as right foot surgical wound with probable osteomyelitis. Lactic acid 1.5 on admission. Blood cultures negative. Wound cultures from [facility] showed group A strep and mixed gabo. Treated initially with vancomycin and Zosyn. MRSA negative. Discontinued Normal saline 125 mL per hour after 24 hours due to risk of further CHF - Repeat CBC in the a.m., - Infectious disease consult is following - Continue Zosyn 3.375 every 8 hours IV - PICC line for antibiotics and phlebotomy: Awaiting cx sensitivites from the foot debridement to determine homegoing abx by Dr. López. # Acute on Chronic Osteomyelitis, present on admission, treatment ongoing. Acute features of sepsis with increased pain. Previously identified at [facility] in [place], did not complete antibiotics and left AMA. Plain films read and additional imaging was recommended. Dr. Vaz from Podiatry consulted, performed operative debridement on 08/01. - Pain management with Dilaudid orally # Chronic systolic congestive heart failure with compensation, present on admission, treatment restarted. Stable. Echocardiogram from [facility] states EF of 20%, with compensation. BNP is markedly elevated, baseline is uncertain. He has no dyspnea or orthopnea. - Continue carvedilol - Resumed diuretics Lasix 40 mg by mouth daily # Chronic Uncontrolled diabetes mellitus, not insulin using, present on admission. Globin A1c 11.3%. Serum glucose was 307 on admission. - Goal glucose is less than 180 to optimize wound healing - glargine 34 units at bedtime, resulted in fasting a.m. blood glucose 118 - Medium dose correctional insulin scale - Continue metformin at present # Poor medical compliance. Admitted to [facility] on 07/10/16 with temperature 37.8, heart rate 102, stable blood pressure WBC count 23.3. Admission labs notable for elevated troponin I is 0.74(normal less than 0.06). Troponin sequence 0.74, 0.69, 0.72. Echo on 07/11/16 with LVEF 20% concentric LVH severe left ventricular dysfunction. Evaluated by cardiology which recommended catheterization but patient refused due to concerns over foot. LISETTE and TBI of lower extremities revealed no significant stenosis. EKG revealed nonspecific ST and T-wave changes. Foot x-rays consistent with osteomyelitis of his right second toe, subcutaneous emphysema. Wound culture revealed alpha- hemolytic strep and mixed gram-positive cocci and coccobacilli, initially. Subsequent wound culture on 07/18 revealed Pseudomonas and MSSA. Orthopedic Dr. Perez performed amputation of right second and third toe on 07/12/16. Further operative debridement on 07/18/16. The patient was agitated for medical care issues, and possibly paranoid. He elected to leave [facility] on 07/19/16. Chronic or Stable but Actively Managed Problems: # Chronic Polysubstance abuse, present on admission, treatment initiated. States he last used methamphetamines, smoked, earlier this morning before presentation to the emergency department for pain control. Avoid central lines of possible - Social work consult for chemical dependency. # Chronic tobacco abuse and dependence, present on admission, treatment initiated. - Tobacco cessation education, counseling by M.Cecy at time of admission - Nicotine transdermal patches. # Elevated troponin. Troponin elevation due to cardiomyopathy and renal failure versus Non ST elevation Myocardial infarction. Present on admission. Moderately elevated troponins with flat profile were also documented during recent hospitalization at [facility]. According to records he was not cooperative with further cardiology workup. This now appears to be a stable finding which is not likely related to acute ischemia. Discontinued Heparin drip. - continue Aspirin for antiplatelet therapy Patient admitted under inpatient status with expected length of stay 3-5 days for severity of present symptoms, complexities of treatment plan and risk for adverse events. The patient is seen and examined todaychange his management. He just waiting for his final cultures to be studied so he can figure out sensitivity and right drug for him then he will be discharged home. Patient has a PICC line probably need to be in a [facility] system until completion of IV antibiotics Pain Evaluation: Adequate Pain Control GI Prophylaxis: Proton Pump Inhibitor VTE Prophylaxis: Other (heparin drip) Resuscitation Status: CPR: Attempt Resuscitation Time spent 25 min Carey Nayak DO Aug 03, 2016 14:08
[2016-08-04] MEDS: Sodium Chloride LOK Flush 10 mL Syringe IVFLUSH SCH ×6 (00:30→16:18)
[2016-08-04] MEDS: Piperacillin-Tazo 3.375 Gm Inj 3.375 GM in Dextrose 5% Minibag Plus 50 ML IV SCH ×3 (00:38→16:50)
[2016-08-04 05:15] VITALS: BP 97/63; PULSE 77; RESP 16; O2SAT 95
--- NOTE | 2016-08-04 06:30 | NUR ---
evening blood sugars BG 75 at HS. crackers and peanut butter provided. Hospitalist notified and HS Luciustus held. 0500 BG 102. evening b/p 102/64 - and Coreg dose last night held per per MD order.
--- NOTE | 2016-08-04 09:45 | PCM.PNPOD ---
Subjective Date of Service: Aug 04, 2016 Date of Service: Aug 04, 2016 Visit Information: Reason for Visit Osteomyelitis Of The Right Foot Surgery/Surgery Date Post-Op Day # Date of Admission: Jul 30, 2016 at 19:39 Hospital Day # Subjective: no new events overnight no complaint of pain to the right foot. Postop General: No Complaints Gastrointestinal: Good Appetite Objective Vital Sign - Last Date Time Temp Pulse Resp B/P Pulse Ox O2 Delivery O2 Flow Rate FiO2 08/04/16 05:15 36.8 77 16 97/63 95 Room Air 08/01/16 14:05 10 Intake and Output 08/03/16 08/03/16 08/04/16 Cumulative From/Thru 15:00 23:00 07:00 07/30/16 13:43 - 08/04/16 06:27 Intake Total 1377 ml 207 ml 8588 ml Output Total 150 ml 1400 ml 7135 ml Balance -150 ml -23 ml 207 ml 1453 ml Intake Oral 1200 ml 5020 ml IV Total 177 ml 207 ml 3568 ml Output Urine Total 1400 ml 6975 ml Emesis 150 ml 150 ml Estimated Blood Loss 10 ml # Voids 2 2 # Bowel Movements 0 Result Diagram: 08/03/16 0515 08/04/16 0500 Lab Test 07/30/16 16:23 07/31/16 04:55 07/31/16 09:21 07/31/16 09:50 Erythrocyte Sedimentation Rate 41mm/hr (0-30) Prothrombin Time 10.0sec (8.1-12.5) Prothromb Time International Ratio 0.94ratio Hemoglobin A1c 11.3% (4.8-5.6) Lactic Acid Level 1.5mmol/L (0.4-2.0) Phosphorus Level 2.5mg/dL (2.5-4.9) Magnesium Level 1.5mg/dL (1.6-2.6) Total Bilirubin 0.4mg/dL (0.0-1.2) Aspartate Amino Transf (AST/SGOT) 38U/L (0-50) Alanine Aminotransferase (ALT/SGPT) 24U/L (0-44) Alkaline Phosphatase 154U/L (25-150) Total Protein 7.2g/dL (6.4-8.4) Albumin 3.3g/dL (3.4-5.0) Lipase 53U/L (13-60) Procalcitonin 0.04ng/mL (0.00-0.08) Troponin T 0.351ug/L (0.0-0.011) Urine Color Yellow (YELLOW) Urine Appearance Clear (CLEAR,HAZY) Urine pH 6.0 (5.0-8.0) Urine Specific [place] 1.025 (1.003-1.035) Urine Protein 100mg/dL (NEG,TRACE) Urine Glucose (UA) 1000mg/dL (NEGATIVE) Urine Ketones Negativemg/dL (NEGATIVE) Urine Occult Blood Trace (NEGATIVE) Urine Nitrite Negative (NEGATIVE) Urine Bilirubin Negative (NEGATIVE) Urine Urobilinogen Normalmg/dL (NORMAL) Urine Leukocyte Esterase Negative (NEGATIVE) Urine RBC 3-10/hpf (0-2) Urine WBC 0-5/hpf (0-5) Urine Epithelial Cells Occasional/hpf (NONE-MOD) Urine Crystals None seen (NONE SEEN) Urine Bacteria None/hpf (NONE-FEW) Urine Hyaline Casts None/lpf (NONE) Urine Granular Casts None seen (NONE SEEN) Urine Waxy Casts None seen (NONE SEEN) Urine Red Blood Cell Casts None seen (NONE SEEN) Urine White Blood Cell Casts None seen (NONE SEEN) Urine Mucus Present (None Seen) Urine Trichomonas None seen (NONE SEEN) Urine Yeast None (NONE SEEN) Urinalysis Comment Urine Culture Reflexed Not indicated Urine Opiates Screen Negative Urine Methadone Screen Negative Urine Barbiturates Screen Negative Urine Amphetamines Screen Positive Urine Benzodiazepines Screen Negative Urine Cocaine Metabolite Screen Negative Urine Cannabinoids Screen Negative C-Reactive Protein 2.1mg/dL (0.0-0.5) Pro-B-Type Natriuretic Peptide 07035qf/mL (0-210) HIV (1&2) Ag and Ab, 4th Generation Non reactive (Non Reactive) Test 07/31/16 10:45 08/03/16 05:15 08/04/16 05:00 Activated Partial Thromboplast Time 38.5sec (22.8-33.0) White Blood Count 7.9th/mm3 (3.8-10.1) Red Blood Count 3.51mil/mm3 (4.40-5.80) Hemoglobin 9.7g/dL (13.8-17.2) Hematocrit 29.7% (41.0-50.0) Mean Corpuscular Volume 84.6fL (81-100) Mean Corpuscular Hemoglobin 27.6pg (27.0-35.0) Mean Corpuscular Hemoglobin Concent 32.7% (32.0-37.0) Red Cell Distribution Width 17.9% (12.3-15.4) Platelet Count 204bil/L (150-400) Neutrophils (%) (Auto) 45.8% (40-74) Lymphocytes (%) (Auto) 33.1% (14-46) Monocytes (%) (Auto) 11.8% (4-12) Eosinophils (%) (Auto) 8.5% (0-5) Basophils (%) (Auto) 0.4% (0-3) Sodium Level 138mEq/L (134-144) Potassium Level 4.2mEq/L (3.5-5.2) Chloride Level 97mEq/L (97-108) Carbon Dioxide Level 31mmol/L (18-29) Blood Urea Nitrogen 15mg/dL (6-24) Creatinine 1.02mg/dL (0.76-1.27) Estimat Glomerular Filtration Rate 80mL/min (>59) Glucose Level 101mg/dL (60-99) Calcium Level 9.6mg/dL (8.5-10.1) Exam General: Alert, Oriented X3, Cooperative Lower Extremities: Right: Edema localized (diminishing) Extremity warm (improved erythema) Lower Extremity Pulses: Palpable: Left Dorsalis Pedis Left Posterior Tibal Right Posterior Tibal Doppler: Right Dorsalis Pedis Podiatry WOUND : Wound Location/Description dorsal right foot wound measures 7.5cm x 4 cm x 2 cm without exposed bone or tendon. no erythema. no mal odor. minimal yellow drainage noted. Surgical Cast or Splint: None Assessment & Plan Impression stable right foot wound following right 2nd and 3rd ray resection Problems: (1) Osteomyelitis of right foot Qualifiers: Osteomyelitis type: other acute Qualified Code: M86.171 - Other acute osteomyelitis, right ankle and foot Plan: dressing changed today. wound dressed with wet to dry saline soaked gauze and DSD. continue current antibiotic regiment non weight bearing right foot. patient likely will require return to the OR next week per Dr. Vaz for a definitive transmetatarsal amputation. Status: Acute ICD Code: M86.9 VTE Prophylaxis: Other (heparin drip) Thiago Cordoba DPM Aug 04, 2016 09:45
[2016-08-04] MEDS: Insulin LISPRO 300 Unit/3 mL Inj SUBQ SCH ×4 (10:29→20:42)
[2016-08-04] MEDS: Polyethylene Glycol (PEG) 17 Gm Powder PO SCH (10:29)
[2016-08-04] MEDS: Heparin 5,000 Unit/mL Inj SUBQ SCH ×2 (10:29→16:49)
[2016-08-04] MEDS: Multivit-Miner-Folic Acid-Iron Tablet PO SCH (10:30)
[2016-08-04] MEDS: Potassium Chloride 20 mEq/15 mL 15mL Oral Soln PO SCH (10:30)
[2016-08-04 10:42] VITALS: BP 115/72
[2016-08-04 12:09] VITALS: BP 112/73; PULSE 76; RESP 16; O2SAT 95
--- NOTE | 2016-08-04 13:50 | PCM.PNMED ---
Subjective Date of Service Aug 04, 2016 Subjective Patient is seen and examined. He states that he has to much pain so he does not walk. It does not appear that he has PT/OT. He says that he did not have any pain meds at home and his pain was really bad so that is where he resorted to alcohol and IV drugs. He says Dr. Cordoba visited with him and states that he will be taken back to the OR on Saturday for amputation of his toes. Cultures today showed sensitivity to ciprofloxacin and some cephalosporins for the Citrobacter with a staph sensitivities are not back yet. Exam Vital Signs Vital Sign - Last Date Time Temp Pulse Resp B/P Pulse Ox O2 Delivery O2 Flow Rate FiO2 08/04/16 12:09 36.4 76 16 112/73 95 Room Air 08/01/16 14:05 10 Intake and Output 08/03/16 08/03/16 08/04/16 Cumulative From/Thru 15:00 23:00 07:00 07/30/16 13:43 - 08/04/16 06:27 Intake Total 1377 ml 207 ml 8588 ml Output Total 150 ml 1400 ml 7135 ml Balance -150 ml -23 ml 207 ml 1453 ml Intake Oral 1200 ml 5020 ml IV Total 177 ml 207 ml 3568 ml Output Urine Total 1400 ml 6975 ml Emesis 150 ml 150 ml Estimated Blood Loss 10 ml # Voids 2 2 # Bowel Movements 0 Exam General: NAD, sleeping HEENT: NCAT, poor dentition Eyes: [place] conjunctivae. No ptosis, Neck: No masses, trachea midline, no thyromegaly Lungs: CTA with normal respiratory effort, no crackles or wheezes CV: RRR, no murmurs/rubs/gallops, normal PMI GI: Soft, non-tender with no hepatosplenomegaly Skin: Warm and dry. No rash, lesions or ulcers Psych: A&O X3, with appropriate affect IVs and Medications IV Fluids None Medications Reviewed: Medications were reviewed in detail Lab and Diagnostics Result Diagram: 08/03/16 0515 08/04/16 0500 X-Rays, CTs and MRIs Right foot x-ray performed 07/30/2016 IMPRESSION: 1. A small linear metallic foreign body in the great toe. 2. Amputation of the second third toes. 3. Radiographs are not sensitive for early phase of osteomyelitis. If there is high clinical suspicion for osteomyelitis, a triple phase bone scan is suggested for further evaluation. Dictated by: Ryland Bone M.D. on 07/30/2016 at 16:14 . 12-lead ECG Sinus tachycardia, rate 107, QTC 454, "nonspecific repol abnormality." ST depression T-wave flattening in leads V4 through V6. . Cardiac Echo Impressions Echo report from [facility] performed 07/11/2016 Conclusions "Mild LVH and mild LV dilation with severe global LV dysfunction EF 20% Mild RV dilation with moderate RV dysfunction Trace mitral, aortic, tricuspid, pulmonic regurgitation." Full report can be found on page 45 of 62 [facility] records on paper chart. . Assessment & Plan # Acute Sepsis, present on admission, treatment ongoing, White count 12.6 heart rate 114, temperature 35.8, source identified as right foot surgical wound with probable osteomyelitis. Lactic acid 1.5 on admission. Blood cultures negative. Wound cultures from [facility] showed group A strep and mixed gabo. Treated initially with vancomycin and Zosyn. MRSA negative. Discontinued Normal saline 125 mL per hour after 24 hours due to risk of further CHF - Repeat CBC in the a.m., - Infectious disease consult is following: Patient was on Zosyn, will switch to cipro as neither has coverage for MRSA. - PICC line for antibiotics and phlebotomy: Awaiting cx sensitivites from the foot debridement to determine home going abx by Dr. López. -- Sensitivities show sensitivity to ciprofloxacin and some cephalosporins for Citrobacter, it appeared that they did not test Zosyn sensitivities but sensitive to merem. -- Tried calling Dr. López, he is unavailable, his notes for other pts say he will return on Mon -- Changed patient to Ceftriaxone as there is no concern for MRSA or pseudomonas. Will await staph sensitivities, lab had to plate this agian today because of the mixed gabo. # Acute on Chronic Osteomyelitis, present on admission, treatment ongoing. Acute features of sepsis with increased pain. Previously identified at [facility] in [place], did not complete antibiotics and left AMA. Plain films read and additional imaging was recommended. Dr. Vaz from Podiatry consulted, performed operative debridement on 08/01. - Pain management with Dilaudid orally -- Dr. Cordoba: "patient likely will require return to the OR next week per Dr. Vaz for a definitive transmetatarsal amputation." --Changed patient to Ceftriaxone as there is no concern for MRSA or pseudomonas. Will await staph sensitivities, lab had to plate this agian today because of the mixed gabo. # Chronic systolic congestive heart failure with compensation, present on admission, treatment restarted. Stable. Echocardiogram from [facility] states EF of 20%, with compensation. BNP is markedly elevated, baseline is uncertain. He has no dyspnea or orthopnea. - Continue carvedilol - Resumed diuretics Lasix 40 mg by mouth daily - Sensitivities show sensitivity to ciprofloxacin and some cephalosporins for Citrobacter with no staph sensitivities are not yet it appeared that the tested Zosyn and sensitivities. # Chronic Uncontrolled diabetes mellitus, not insulin using, present on admission. Globin A1c 11.3%. Serum glucose was 307 on admission. - Goal glucose is less than 180 to optimize wound healing - glargine 34 units at bedtime, 6 units humalog TIDWM - Medium dose correctional insulin scale - Continue metformin at present -- Stable # Poor medical compliance. Admitted to [facility] on 07/10/16 with temperature 37.8, heart rate 102, stable blood pressure WBC count 23.3. Admission labs notable for elevated troponin I is 0.74(normal less than 0.06). Troponin sequence 0.74, 0.69, 0.72. Echo on 07/11/16 with LVEF 20% concentric LVH severe left ventricular dysfunction. Evaluated by cardiology which recommended catheterization but patient refused due to concerns over foot. LISETTE and TBI of lower extremities revealed no significant stenosis. EKG revealed nonspecific ST and T-wave changes. Foot x-rays consistent with osteomyelitis of his right second toe, subcutaneous emphysema. Wound culture revealed alpha- hemolytic strep and mixed gram-positive cocci and coccobacilli, initially. Subsequent wound culture on 07/18 revealed Pseudomonas and MSSA. Orthopedic Dr. Perez performed amputation of right second and third toe on 07/12/16. Further operative debridement on 07/18/16. The patient was agitated for medical care issues, and possibly paranoid. He elected to leave [facility] on 07/19/16. Chronic or Stable but Actively Managed Problems: # Chronic Polysubstance abuse, present on admission, treatment initiated. States he last used methamphetamines, smoked, earlier this morning before presentation to the emergency department for pain control. Avoid central lines of possible - Social work consult for chemical dependency. # Chronic tobacco abuse and dependence, present on admission, treatment initiated. - Tobacco cessation education, counseling by [facility] at time of admission - Nicotine transdermal patches. # Elevated troponin. Troponin elevation due to cardiomyopathy and renal failure versus Non ST elevation Myocardial infarction. Present on admission. Moderately elevated troponins with flat profile were also documented during recent hospitalization at [facility]. According to records he was not cooperative with further cardiology workup. This now appears to be a stable finding which is not likely related to acute ischemia. Discontinued Heparin drip. - continue Aspirin for antiplatelet therapy -- heparin SQ Patient admitted under inpatient status with expected length of stay 3-5 days for severity of present symptoms, complexities of treatment plan and risk for adverse events. The patient is seen and examined today change his management. He just waiting for his final cultures to be studied so he can figure out sensitivity and right drug for him then he will be discharged home. Patient has a PICC line, probably will need to be in a [facility] system until completion of IV antibiotics Pain Evaluation: Adequate Pain Control GI Prophylaxis: Proton Pump Inhibitor VTE Prophylaxis: Other (heparin drip) Resuscitation Status: CPR: Attempt Resuscitation Time spent 25 min Addendum: Carey Nayak DO on 08/03/16 @ 22:24 Pain Evaluation: Adequate Pain Control GI Prophylaxis: Proton Pump Inhibitor VTE Prophylaxis: Other (heparin drip) Resuscitation Status: CPR: Attempt Resuscitation Time spent 25 min Carey Nayak DO Aug 04, 2016 13:50
[2016-08-04 14:28] VITALS: PULSE 83; RESP 16; O2SAT 98
--- NOTE | 2016-08-04 18:29 | NUR ---
Activity Pt not OOB due to non-weightbearing status. Was frustrated saying he wanted a shower, so it was offered we could get him up and wrap foot, but he got very agitated stating "all my germs will just go into the foot and that's why I'm here." Bed bath was offered and pt declined that as well stating "that won't work." Unable to come to solution pt was agreeable to. Pt has not had BM since prior to admission, medication given. Dressing on foot is CDI. Pt's pain well controlled with oral pain meds, given when pt asked as he likes to sleep and not be woken up. Bed in low, call light in reach, continue q1 hour monitoring.
[2016-08-04] MEDS: OLANZapine Zydis ODT 5 mg Tablet PO SCH (20:39)
[2016-08-04] MEDS: Insulin GLARgine 100 Unit/mL Syringe SUBQ SCH (20:40)
[2016-08-04 20:55] VITALS: BP 115/70; PULSE 89; RESP 18; O2SAT 92
[2016-08-04] MEDS: cefTRIAXone Inj 2,000 MG in Dextrose 5% Minibag Plus 50 ML IV SCH (23:09)
[2016-08-05] MEDS: Sodium Chloride LOK Flush 10 mL Syringe IVFLUSH SCH ×6 (00:30→16:24)
[2016-08-05] MEDS: Heparin 5,000 Unit/mL Inj SUBQ SCH ×3 (00:40→16:20)
--- NOTE | 2016-08-05 01:55 | NUR ---
PAIN; dilaudid po given for foot pain with stated relief. Pleasant, cooperative. Coverage given for blood sugar at [facility]
[2016-08-05 04:00] LABS: Mean Corpuscular Hemoglobin 27.4 pg (27.0-35.0); Mean Corpuscular Volume 83.8 fL (81-100)
[2016-08-05 06:30] VITALS: BP 106/71; PULSE 85; RESP 16; O2SAT 92
[2016-08-05] MEDS: Insulin LISPRO 300 Unit/3 mL Inj SUBQ SCH ×4 (08:00→23:15)
[2016-08-05] MEDS: Polyethylene Glycol (PEG) 17 Gm Powder PO SCH (08:30)
[2016-08-05] MEDS: Multivit-Miner-Folic Acid-Iron Tablet PO SCH (08:30)
[2016-08-05] MEDS: Potassium Chloride 20 mEq/15 mL 15mL Oral Soln PO SCH (08:30)
[2016-08-05 08:41] VITALS: PULSE 85; RESP 16; O2SAT 92
--- NOTE | 2016-08-05 12:32 | NUR ---
pt angry and refusing all meds and BG checks this am He is angry about his breakfast, he said it was late and/or we forgot him. He refused his BG checks and his insulin, metformin, BP meds, including Coreg, all meds. He has not refused his IV AB so far because wasn't scheduled in am. Refused lunch when it came, refused to order dinner. "Ill probably leave before then anyway" Addendum: 08/05/16 at 1238 by JIMMY MADRIGAL RN Dr Bee informed pt refusing care
--- NOTE | 2016-08-05 14:20 | PCM.PNMED ---
Subjective Date of Service Aug 05, 2016 Subjective According to the nurse patient was angry and refusing medications and glucoscans this morning. Currently he only complains of being tired. Exam Vital Signs Vital Sign - Last Date Time Temp Pulse Resp B/P Pulse Ox O2 Delivery O2 Flow Rate FiO2 08/05/16 08:41 85 16 92 Room Air 08/05/16 06:30 36.8 106/71 08/01/16 14:05 10 Intake and Output 08/04/16 08/04/16 08/05/16 Cumulative From/Thru 15:00 23:00 07:00 07/30/16 13:43 - 08/05/16 06:44 Intake Total 500 ml 1236 ml 1186 ml 71253 ml Output Total 2015 ml 1400 ml 2225 ml 10111 ml Balance -1515 ml -164 ml -1039 ml -1265 ml Intake Oral 500 ml 1036 ml 1000 ml 7556 ml IV Total 200 ml 186 ml 3954 ml Output Urine Total 2015 ml 1400 ml 2225 ml 02512 ml Emesis 150 ml Estimated Blood Loss 10 ml # Voids 2 # Bowel Movements 0 0 Exam General: Sleeping but arouses easily to voice and is then alert and appropriate although he tends to fall back asleep easily, no acute distress Heart: Regular Lungs: Clear Abdomen: Soft, non-tender Extremities: No pedal edema, left foot and ankle with dressing in place IVs and Medications Medications Reviewed: Medications were reviewed in detail Lab and Diagnostics Result Diagram: 08/05/16 0355 08/05/16 0355 X-Rays, CTs and MRIs Right foot x-ray performed 07/30/2016 IMPRESSION: 1. A small linear metallic foreign body in the great toe. 2. Amputation of the second third toes. 3. Radiographs are not sensitive for early phase of osteomyelitis. If there is high clinical suspicion for osteomyelitis, a triple phase bone scan is suggested for further evaluation. Dictated by: Ryland Bone M.D. on 07/30/2016 at 16:14 . 12-lead ECG Sinus tachycardia, rate 107, QTC 454, "nonspecific repol abnormality." ST depression T-wave flattening in leads V4 through V6. . Cardiac Echo Impressions Echo report from [facility] performed 07/11/2016 Conclusions "Mild LVH and mild LV dilation with severe global LV dysfunction EF 20% Mild RV dilation with moderate RV dysfunction Trace mitral, aortic, tricuspid, pulmonic regurgitation." Full report can be found on page 45 of 62 [facility] records on paper chart. . Assessment & Plan # Acute Sepsis, present on admission, treatment ongoing, White count 12.6 heart rate 114, temperature 35.8, source identified as right foot surgical wound with probable osteomyelitis. Lactic acid 1.5 on admission. Blood cultures negative. Wound cultures from [facility] showed group A strep and mixed gabo. Treated initially with vancomycin and Zosyn. MRSA negative. Discontinued Normal saline 125 mL per hour after 24 hours due to risk of further CHF - WBC now normal and afebrile - Infectious disease consult is following: Recommended Zosyn over the weekend but changed to CTX by hospitalist ("no concern for MRSA or pseudomonas. Will await staph sensitivities, lab had to plate this agian today because of the mixed gabo.") - Wound culture now growing Citrobacter (sens to CTX) and MSSA (not sens to CTX) , will add oral Clindamycin - PICC line for antibiotics and phlebotomy - Dr López will see again tomorrow (Saturday) # Acute on Chronic Osteomyelitis, present on admission, treatment ongoing. Acute features of sepsis with increased pain. Previously identified at [facility] in [place], did not complete antibiotics and left AMA. Plain films read and additional imaging was recommended. Dr. Vaz from Podiatry consulted, performed operative debridement on 08/01. - Pain management with Dilaudid orally -- Dr. Cordoba: "patient likely will require return to the OR next week per Dr. Vaz for a definitive transmetatarsal amputation." -- Antibiotics as above # Chronic systolic congestive heart failure with compensation, present on admission, treatment restarted. Stable. Echocardiogram from [facility] states EF of 20%, with compensation. BNP is markedly elevated, baseline is uncertain. He has no dyspnea or orthopnea. - Continue carvedilol - Lasix resumed but now creatinine has increased from 1.02 up to 1.35 this morning so will hold Lasix # Chronic Uncontrolled diabetes mellitus, not insulin using, present on admission. Globin A1c 11.3%. Serum glucose was 307 on admission. - Goal glucose is less than 180 to optimize wound healing - glargine 34 units at bedtime, 6 units humalog TIDWM - Medium dose correctional insulin scale - Continue metformin at present -- Stable # Poor medical compliance. Admitted to [facility] on 07/10/16 with temperature 37.8, heart rate 102, stable blood pressure WBC count 23.3. Admission labs notable for elevated troponin I is 0.74(normal less than 0.06). Troponin sequence 0.74, 0.69, 0.72. Echo on 07/11/16 with LVEF 20% concentric LVH severe left ventricular dysfunction. Evaluated by cardiology which recommended catheterization but patient refused due to concerns over foot. LISETTE and TBI of lower extremities revealed no significant stenosis. EKG revealed nonspecific ST and T-wave changes. Foot x-rays consistent with osteomyelitis of his right second toe, subcutaneous emphysema. Wound culture revealed alpha- hemolytic strep and mixed gram-positive cocci and coccobacilli, initially. Subsequent wound culture on 07/18 revealed Pseudomonas and MSSA. Orthopedic Dr. Perez performed amputation of right second and third toe on 07/12/16. Further operative debridement on 07/18/16. The patient was agitated for medical care issues, and possibly paranoid. He elected to leave [facility] on 07/19/16. Chronic or Stable but Actively Managed Problems: # Chronic Polysubstance abuse, present on admission, treatment initiated. States he last used methamphetamines, smoked, earlier this morning before presentation to the emergency department for pain control. Avoid central lines of possible - Social work consult for chemical dependency. # Chronic tobacco abuse and dependence, present on admission, treatment initiated. - Tobacco cessation education, counseling by M.D. at time of admission - Nicotine transdermal patches. # Elevated troponin. Troponin elevation due to cardiomyopathy and renal failure versus Non ST elevation Myocardial infarction. Present on admission. Moderately elevated troponins with flat profile were also documented during recent hospitalization at [facility]. According to records he was not cooperative with further cardiology workup. This now appears to be a stable finding which is not likely related to acute ischemia. Discontinued Heparin drip. - continue Aspirin for antiplatelet therapy -- heparin SQ Patient admitted under inpatient status with expected length of stay 3-5 days for severity of present symptoms, complexities of treatment plan and risk for adverse events. The patient is seen and examined today change his management. He just waiting for his final cultures to be studied so he can figure out sensitivity and right drug for him then he will be discharged home. Patient has a PICC line, probably will need to be in a [facility] system until completion of IV antibiotics Pain Evaluation: Adequate Pain Control GI Prophylaxis: Proton Pump Inhibitor VTE Prophylaxis: Other (heparin drip) Resuscitation Status: CPR: Attempt Resuscitation Time spent 25 min Addendum: Carey Nayak DO on 08/03/16 @ 22:24 GI Prophylaxis: Proton Pump Inhibitor VTE Prophylaxis: Other (heparin drip) Resuscitation Status: CPR: Attempt Resuscitation Erica Bee MD Aug 05, 2016 14:20 GI Prophylaxis: Proton Pump Inhibitor VTE Prophylaxis: Other (heparin drip) Resuscitation Status: CPR: Attempt Resuscitation Erica Bee MD Aug 05, 2016 14:20
[2016-08-05 19:55] VITALS: PULSE 96; RESP 18; O2SAT 98
[2016-08-05 21:30] VITALS: BP 110/72; PULSE 70; RESP 18; O2SAT 100
[2016-08-05] MEDS: OLANZapine Zydis ODT 5 mg Tablet PO SCH (22:48)
[2016-08-05] MEDS: cefTRIAXone Inj 2,000 MG in Dextrose 5% Minibag Plus 50 ML IV SCH (23:14)
[2016-08-05] MEDS: Insulin GLARgine 100 Unit/mL Syringe SUBQ SCH (23:16)
--- NOTE | 2016-08-06 | NUR ---
PSYCH; pt cooperative, pleasant, sleeping alot this shift. No refusal of care, rx etc. Blood sugar 295; covered with lantus and lispro. Snack requested and given.
[2016-08-06] MEDS: Heparin 5,000 Unit/mL Inj SUBQ SCH ×3 (00:46→16:56)
[2016-08-06] MEDS: Sodium Chloride LOK Flush 10 mL Syringe IVFLUSH SCH ×6 (04:05→16:56)
--- NOTE | 2016-08-06 04:12 | NUR ---
LAB; blood drawn without problems from picc line.
[2016-08-06 06:25] VITALS: BP 121/77; PULSE 78; RESP 18; O2SAT 97
[2016-08-06 07:20] VITALS: BP 149/92; PULSE 86
--- NOTE | 2016-08-06 07:24 | NUR ---
Chest Pain Charge nurse informed primary care RN of patient reporting chest pain. Upon entry, patient appears at ease. BP elevated. 2L 02 NC applied to patient. HR 80 and regular on auscultation. building estimator ordered EKG and called RT. Patient states the pain is "dull and sharp." States this is new to him, and it is not radiating anywhere else. No other distress noted, awaiting EKG.
[2016-08-06] MEDS: Ondansetron 2 mg/mL 2 mL Inj IVPUSH PRN (07:44)
[2016-08-06] MEDS: Insulin LISPRO 300 Unit/3 mL Inj SUBQ SCH ×4 (08:00→21:46)
--- NOTE | 2016-08-06 08:27 | PCM.PNMED ---
Subjective Date of Service Aug 06, 2016 Subjective Earlier this morning complained of mid retrosternal chest pain to the nurse. When I saw him he is sleeping but arouses easily to voice but is reluctant to answer questions or have any conversation. All he will say about his chest pain is that it is "better". Exam Vital Signs Vital Sign - Last Date Time Temp Pulse Resp B/P Pulse Ox O2 Delivery O2 Flow Rate FiO2 08/06/16 07:20 86 149/92 08/06/16 06:25 36.6 18 97 Room Air 08/01/16 14:05 10 Intake and Output 08/05/16 08/05/16 08/06/16 Cumulative From/Thru 15:00 23:00 07:00 07/30/16 13:43 - 08/06/16 06:43 Intake Total 793 ml 680 ml 23580 ml Output Total 1000 ml 1200 ml 19294 ml Balance -207 ml -520 ml -1992 ml Intake Oral 793 ml 500 ml 8849 ml IV Total 180 ml 4134 ml Output Urine Total 1000 ml 1200 ml 39479 ml Emesis 150 ml Estimated Blood Loss 10 ml # Voids 2 # Bowel Movements 0 0 0 Exam General: Sleeping but arouses easily to voice, no acute distress Heart: Regular Lungs: Clear Abdomen: Soft, non-tender Extremities: No pedal edema IVs and Medications Medications Reviewed: Medications were reviewed in detail Lab and Diagnostics Result Diagram: 08/05/16 0355 08/06/16 0350 X-Rays, CTs and MRIs Right foot x-ray performed 07/30/2016 IMPRESSION: 1. A small linear metallic foreign body in the great toe. 2. Amputation of the second third toes. 3. Radiographs are not sensitive for early phase of osteomyelitis. If there is high clinical suspicion for osteomyelitis, a triple phase bone scan is suggested for further evaluation. Dictated by: Ryland Bone M.D. on 07/30/2016 at 16:14 . 12-lead ECG Sinus tachycardia, rate 107, QTC 454, "nonspecific repol abnormality." ST depression T-wave flattening in leads V4 through V6. . Cardiac Echo Impressions Echo report from [facility] performed 07/11/2016 Conclusions "Mild LVH and mild LV dilation with severe global LV dysfunction EF 20% Mild RV dilation with moderate RV dysfunction Trace mitral, aortic, tricuspid, pulmonic regurgitation." Full report can be found on page 45 of 62 [facility] records on paper chart. . Assessment & Plan # Acute Sepsis, present on admission, treatment ongoing, White count 12.6 heart rate 114, temperature 35.8, source identified as right foot surgical wound with probable osteomyelitis. Lactic acid 1.5 on admission. Blood cultures negative. Wound cultures from [facility] showed group A strep and mixed gabo. Treated initially with vancomycin and Zosyn. MRSA negative. Discontinued Normal saline 125 mL per hour after 24 hours due to risk of further CHF - WBC now normal and afebrile - Infectious disease consult is following: Recommended Zosyn over the weekend but changed to CTX by hospitalist ("no concern for MRSA or pseudomonas. Will await staph sensitivities, lab had to plate this agian today because of the mixed gabo.") - Wound culture now growing Citrobacter (sens to CTX) and MSSA (not sens to CTX) , so Clindamycin added yesterday and now possible additional GNB? - PICC line for antibiotics and phlebotomy - Dr López will see again today # Acute on Chronic Osteomyelitis, present on admission, treatment ongoing. Acute features of sepsis with increased pain. Previously identified at [facility] in [place], did not complete antibiotics and left AMA. Plain films read and additional imaging was recommended. Dr. Vaz from Podiatry consulted, performed operative debridement on 08/01. - Pain management with Dilaudid orally -- Dr. Adalid Bernal 17: "patient likely will require return to the OR next week per Dr. Vaz for a definitive transmetatarsal amputation." -- Antibiotics as above # Chest pain with hx CAD, EKG with lat T inversion slightly more prominent than July 30 -- appears to have resolved -- ntg prn -- continue Coreg and ASA # Chronic systolic congestive heart failure with compensation, present on admission, treatment restarted. Stable. Echocardiogram from [facility] states EF of 20%, with compensation. BNP is markedly elevated, baseline is uncertain. He has no dyspnea or orthopnea. - Continue carvedilol - Lasix resumed but now -- creatinine had increased from 1.02 up to 1.35 August 05 morning so DC'd Lasix (he refused dose August 05 am anyway) but now back to 1.1 so will resume # Chronic Uncontrolled diabetes mellitus, not insulin using, present on admission. Globin A1c 11.3%. Serum glucose was 307 on admission. - Goal glucose is less than 180 to optimize wound healing - becoming very upset with freq glucoscans, will decrease to twice daily - before lunch and at bedtime, also decrease vital signs to twice daily - glargine 34 units at bedtime, 6 units humalog TIDWM - Medium dose correctional insulin scale - Continue metformin at present -- Stable # Poor medical compliance. Admitted to [facility] on 07/10/16 with temperature 37.8, heart rate 102, stable blood pressure WBC count 23.3. Admission labs notable for elevated troponin I is 0.74(normal less than 0.06). Troponin sequence 0.74, 0.69, 0.72. Echo on 07/11/16 with LVEF 20% concentric LVH severe left ventricular dysfunction. Evaluated by cardiology which recommended catheterization but patient refused due to concerns over foot. LISETTE and TBI of lower extremities revealed no significant stenosis. EKG revealed nonspecific ST and T-wave changes. Foot x-rays consistent with osteomyelitis of his right second toe, subcutaneous emphysema. Wound culture revealed alpha- hemolytic strep and mixed gram-positive cocci and coccobacilli, initially. Subsequent wound culture on 07/18 revealed Pseudomonas and MSSA. Orthopedic Dr. Perez performed amputation of right second and third toe on 07/12/16. Further operative debridement on 07/18/16. The patient was agitated for medical care issues, and possibly paranoid. He elected to leave [facility] on 07/19/16. Chronic or Stable but Actively Managed Problems: # Chronic Polysubstance abuse, present on admission, treatment initiated. States he last used methamphetamines, smoked, earlier this morning before presentation to the emergency department for pain control. Avoid central lines of possible - Social work consult for chemical dependency. # Chronic tobacco abuse and dependence, present on admission, treatment initiated. - Tobacco cessation education, counseling by Altaf at time of admission - Nicotine transdermal patches. # Elevated troponin. Troponin elevation due to cardiomyopathy and renal failure versus Non ST elevation Myocardial infarction. Present on admission. Moderately elevated troponins with flat profile were also documented during recent hospitalization at [facility]. According to records he was not cooperative with further cardiology workup. This now appears to be a stable finding which is not likely related to acute ischemia. Discontinued Heparin drip. - continue Aspirin for antiplatelet therapy -- heparin SQ Patient admitted under inpatient status with expected length of stay 3-5 days for severity of present symptoms, complexities of treatment plan and risk for adverse events. The patient is seen and examined today change his management. He just waiting for his final cultures to be studied so he can figure out sensitivity and right drug for him then he will be discharged home. Patient has a PICC line, probably will need to be in a [facility] system until completion of IV antibiotics Pain Evaluation: Adequate Pain Control GI Prophylaxis: Proton Pump Inhibitor VTE Prophylaxis: Other (heparin drip) Resuscitation Status: CPR: Attempt Resuscitation Time spent 25 min Addendum: Carey Nayak DO on 08/03/16 @ 22:24 GI Prophylaxis: Proton Pump Inhibitor VTE Prophylaxis: Other (heparin drip) Resuscitation Status: CPR: Attempt Resuscitation Erica Bee MD Aug 06, 2016 08:27
[2016-08-06] MEDS: Multivit-Miner-Folic Acid-Iron Tablet PO SCH (09:53)
[2016-08-06] MEDS: Polyethylene Glycol (PEG) 17 Gm Powder PO SCH (09:53)
[2016-08-06] MEDS: Potassium Chloride 20 mEq/15 mL 15mL Oral Soln PO SCH (09:54)
--- NOTE | 2016-08-06 11:40 | NUR ---
Behavior Patient is refusing blood sugar checks and physical therapy at this time. Charge nurse, Feliciano, notified and primary RN and charge nurse went into room to discuss patient's behavior. He was told he needed his blood sugars checked before every meal and at bedtime. Patient states, "I haven't ate anything and my numbers have not changed the last the last three times, you are not taking my sugar again." Patient educated on importance of having his blood sugars checked, participating in PT, and participating in the rest of his care. He was told that he would not receive any pain medication until his blood sugar would be checked. He said he did not want anything done to him at this time. Primary RN and charge nurse explained importance of sugar checks and how he ran the risk of pneumonia if he did not get out of bed. He told both nurses to get out of the room. parts department manager notified of this incident. Addendum: 08/06/16 at 1153 by FELICIANO BEAN RN Sheri Olivera also notified of behavior. Agree with all above. Spoke with Dr. South regarding behavior. Addendum: 08/06/16 at 1302 by FELICIANO BEAN RN Behavior contract initiated with pt.
[2016-08-06 12:28] VITALS: BP 112/76; PULSE 87; RESP 16; O2SAT 99
[2016-08-06 14:59] VITALS: PULSE 88; RESP 16; O2SAT 99
[2016-08-06] MEDS: Ertapenem Inj 1,000 MG in 0.9% Sodium Chloride 50 ML IV SCH (15:17)
--- NOTE | 2016-08-06 16:38 | NUR ---
Social Work: Continued Discharge Planning D: EMR reviewed. Per 08/03, would like pt to complete IVABX and [facility]. SW UR faxed referral to [facility] for swing bed 08/06. SW to follow up with UR to determine [facility] availability. Pt has a hx of MET and can't have a central line. Pt is 100% service connected. Anu Linares from [facility] requested pt's H&P. SW faxed H&[facility] fax line [phone]. SW to follow for [facility] availability and ABX needs. A: Pt who will likely need long course IVABX and who can't return home with central line due to hx of MET. P: Follow up with UR regarding [facility] availability. Follow for ABX needs. CONSTANTINE Germain
--- NOTE | 2016-08-06 18:26 | PCM.PNPOD ---
Subjective Date of Service: Aug 06, 2016 Subjective: Patient became agitated just prior to my arrival, requested security to stay during my visit. He would like less blood sugar checks and less interruptions so he can rest. He has avoided showering, worried to get more germs on his foot. Postop General: No Complaints Gastrointestinal: Good Appetite Pain Management: PO Neurological: Numbness (in feet) Objective Vital Sign - Last Date Time Temp Pulse Resp B/P Pulse Ox O2 Delivery O2 Flow Rate FiO2 08/06/16 14:59 88 16 99 Room Air 08/06/16 12:28 36.4 112/76 08/01/16 14:05 10 Intake and Output 08/05/16 08/05/16 08/06/16 Cumulative From/Thru 15:00 23:00 07:00 07/30/16 13:43 - 08/06/16 06:43 Intake Total 793 ml 680 ml 30028 ml Output Total 1000 ml 1200 ml 63877 ml Balance -207 ml -520 ml -1992 ml Intake Oral 793 ml 500 ml 8849 ml IV Total 180 ml 4134 ml Output Urine Total 1000 ml 1200 ml 53797 ml Emesis 150 ml Estimated Blood Loss 10 ml # Voids 2 # Bowel Movements 0 0 0 Result Diagram: 08/05/16 0355 08/06/16 0350 Lab Test 07/30/16 16:23 07/31/16 04:55 07/31/16 09:21 07/31/16 09:50 Prothrombin Time 10.0sec (8.1-12.5) Prothromb Time International Ratio 0.94ratio Hemoglobin A1c 11.3% (4.8-5.6) Lactic Acid Level 1.5mmol/L (0.4-2.0) Phosphorus Level 2.5mg/dL (2.5-4.9) Magnesium Level 1.5mg/dL (1.6-2.6) Total Bilirubin 0.4mg/dL (0.0-1.2) Aspartate Amino Transf (AST/SGOT) 38U/L (0-50) Alanine Aminotransferase (ALT/SGPT) 24U/L (0-44) Alkaline Phosphatase 154U/L (25-150) Total Protein 7.2g/dL (6.4-8.4) Albumin 3.3g/dL (3.4-5.0) Lipase 53U/L (13-60) Procalcitonin 0.04ng/mL (0.00-0.08) Troponin T 0.351ug/L (0.0-0.011) Urine Color Yellow (YELLOW) Urine Appearance Clear (CLEAR,HAZY) Urine pH 6.0 (5.0-8.0) Urine Specific [place] 1.025 (1.003-1.035) Urine Protein 100mg/dL (NEG,TRACE) Urine Glucose (UA) 1000mg/dL (NEGATIVE) Urine Ketones Negativemg/dL (NEGATIVE) Urine Occult Blood Trace (NEGATIVE) Urine Nitrite Negative (NEGATIVE) Urine Bilirubin Negative (NEGATIVE) Urine Urobilinogen Normalmg/dL (NORMAL) Urine Leukocyte Esterase Negative (NEGATIVE) Urine RBC 3-10/hpf (0-2) Urine WBC 0-5/hpf (0-5) Urine Epithelial Cells Occasional/hpf (NONE-MOD) Urine Crystals None seen (NONE SEEN) Urine Bacteria None/hpf (NONE-FEW) Urine Hyaline Casts None/lpf (NONE) Urine Granular Casts None seen (NONE SEEN) Urine Waxy Casts None seen (NONE SEEN) Urine Red Blood Cell Casts None seen (NONE SEEN) Urine White Blood Cell Casts None seen (NONE SEEN) Urine Mucus Present (None Seen) Urine Trichomonas None seen (NONE SEEN) Urine Yeast None (NONE SEEN) Urinalysis Comment Urine Culture Reflexed Not indicated Urine Opiates Screen Negative Urine Methadone Screen Negative Urine Barbiturates Screen Negative Urine Amphetamines Screen Positive Urine Benzodiazepines Screen Negative Urine Cocaine Metabolite Screen Negative Urine Cannabinoids Screen Negative Pro-B-Type Natriuretic Peptide 15446kh/mL (0-210) HIV (1&2) Ag and Ab, 4th Generation Non reactive (Non Reactive) Test 07/31/16 10:45 08/03/16 05:15 08/05/16 03:55 08/06/16 03:50 Activated Partial Thromboplast Time 38.5sec (22.8-33.0) Neutrophils (%) (Auto) 45.8% (40-74) Lymphocytes (%) (Auto) 33.1% (14-46) Monocytes (%) (Auto) 11.8% (4-12) Eosinophils (%) (Auto) 8.5% (0-5) Basophils (%) (Auto) 0.4% (0-3) White Blood Count 8.8th/mm3 (3.8-10.1) Red Blood Count 4.45mil/mm3 (4.40-5.80) Hemoglobin 12.2g/dL (13.8-17.2) Hematocrit 37.3% (41.0-50.0) Mean Corpuscular Volume 83.8fL (81-100) Mean Corpuscular Hemoglobin 27.4pg (27.0-35.0) Mean Corpuscular Hemoglobin Concent 32.7% (32.0-37.0) Red Cell Distribution Width 17.7% (12.3-15.4) Platelet Count 232bil/L (150-400) Erythrocyte Sedimentation Rate 55mm/hr (0-30) C-Reactive Protein 1.1mg/dL (0.0-0.5) Sodium Level 133mEq/L (134-144) Potassium Level 5.1mEq/L (3.5-5.2) Chloride Level 97mEq/L (97-108) Carbon Dioxide Level 27mmol/L (18-29) Blood Urea Nitrogen 23mg/dL (6-24) Creatinine 1.10mg/dL (0.76-1.27) Estimat Glomerular Filtration Rate 74mL/min (>59) Glucose Level 165mg/dL (60-99) Calcium Level 10.2mg/dL (8.5-10.1) Exam General: Alert, Oriented X3, Cooperative Lower Extremities: Right: Edema localized (diminishing) Extremity warm (improved erythema) Lower Extremity Pulses: Palpable: Left Dorsalis Pedis Left Posterior Tibal Right Posterior Tibal Doppler: Right Dorsalis Pedis Podiatry WOUND : Wound Location/Description Open postoperative dorsal wound, granulating in nicely at the proximal aspect. Granulation tissue is now covering over the metatarsal stumps. The distal portion of the open wound is still fibrous at the level of the previous metatarsophalangeal joint articulation. There is no josephine purulence or necrosis noted. The foot is warmer to touch and much better perfused today than several days ago. The remaining wound is now approximately 7 x 6 cm and 2 cm deep. Tendon tissue was exposed in the lateral aspect of the wound towards the fourth toe. Others superficial abrasions are present around the ankle, those are also improving. Surgical Cast or Splint: None Assessment & Plan Problems: (1) Osteomyelitis of right foot Qualifiers: Osteomyelitis type: other acute Qualified Code: M86.171 - Other acute osteomyelitis, right ankle and foot Plan: Dressing changed today, wet-to-dry saline moistened gauze, Kerlix, Alirio. Transmetatarsal amputation planned for tomorrow. Patient agrees with plan. The goal is to get a closed wound to avoid complicating infections and outpatient prolonged wound care, which has proven to be a poor choice for this patient. Dr. López's team has notified the hospitalist of the need to decrease interruptions, i.e. frequent blood glucose checks. I will get his signature on the consent tomorrow for the TMA. He will be NPO after midnight and OR time is between 11:30 and noon. Estimate inpatient stay until Saturday. Status: Acute ICD Code: M86.9 VTE Prophylaxis: Other (heparin drip) Phoebe Vaz DPM Aug 06, 2016 18:26
[2016-08-06 20:02] VITALS: PULSE 87; RESP 16; O2SAT 96
--- NOTE | 2016-08-06 21:08 | PROG NOTE ---
[address] [address] PROGRESS NOTE PATIENT: ROCIO MCKEON : 1960 MR#: [id number] ADMIT: 07/30/2016 JOB ID: [id number] DATE: 08/06/2016 REASON FOR FOLLOWUP: Severe diabetic foot infection with associated osteomyelitis. INTERVAL HISTORY: The patient had some clindamycin added to his ceftriaxone over the weekend. This led to intense nausea and vomiting which has caused the patient to start to refuse many of his medications. The patient has also been refusing his physical therapy which he says is out of concern of re-injuring the open surgical wound on his foot and causing reinfection. The patient has no fevers, chills or sweats today. He has had significant nausea and vomiting clearly related to the institution of clindamycin. No pulmonary symptoms. He has no pain in his foot whatsoever. PHYSICAL EXAMINATION: Reveals an afebrile gentleman, temperature 36.4, pulse 87, respiratory rate 16, blood pressure 112/76. He is saturating very well on room air. He is in no acute distress though he continues to appear somewhat depressed with a flat affect. He is interactive though and his answers to questions are logical. The oral cavity nothing new to report. Lungs are clear. Abdomen benign. His right foot is wrapped in a dressing which Dr. Vaz will be removing once she rounds later today. The remaining visible toes appear viable. LABORATORIES: Include white count 8800 yesterday, creatinine 1.1 today which is about his baseline. CRP is 1.1 about two times normal. Micro studies: The cultures from the foot here have grown Citrobacter brachii and, more importantly, MSSA. The Citrobacter is relatively susceptible, but is resistant to 1st and 2nd generation cephalosporins. Otherwise, quite susceptible. The ultrasound we ordered of the leg on Saturday showed no evidence of DVT in the right lower extremity. IMPRESSION: This patient seems relatively stable with this complicated right foot infection with underlying osteomyelitis. Both in the [facility] as well as here, he has grown methicillin-sensitive Staphylococcus aureus and this is undoubtedly the most important and perhaps the only real pathogen in his foot. It is possible there are anaerobes present as they are difficult to detect. He has also grown a variety of gram-negative rods at [place] and here though not the same gram negatives, and I suspect these are more colonizing than infection-producing. RECOMMENDATIONS: 1. Clindamycin will be discontinued. 2. We will switch the ceftriaxone to ertapenem. Ertapenem will be at least as good and maybe better for MSSA than ceftriaxone. Will also give us excellent coverage for Citrobacter as well as all anaerobes in a once a day package. Will follow closely.
[2016-08-06 21:40] VITALS: BP 118/78; PULSE 80; RESP 16; O2SAT 97
[2016-08-06] MEDS: Insulin GLARgine 100 Unit/mL Syringe SUBQ SCH (21:45)
[2016-08-07] VITALS (15 sets, daily range): BP systolic 97–122; BP diastolic 61–79; PULSE 66–85; RESP 12–18; O2SAT 93–99
[2016-08-07] MEDS: Heparin 5,000 Unit/mL Inj SUBQ SCH ×3 (00:26→17:55)
[2016-08-07] MEDS: Sodium Chloride LOK Flush 10 mL Syringe IVFLUSH SCH ×6 (00:30→17:54)
--- NOTE | 2016-08-07 03:49 | NUR ---
Behavior Pt sleeping at start of shift; once awoken first thing he stated was that he did not want to take a shower tonight despite this being the plan per day shift RN/[employer]. Male [employer] present and stated would try again in morning prior to change of shift. Pt sleepy and wanting to be able to sleep. Gave pt the plan for the shift: medications and timing of these along. [employer] also stating when she would be in. Pt agreeable and thus far, with being woken up, have not had any issues with behavior. Pt aware of being NPO for surgery and abiding by this diet status. Able to make needs known, care continues.
[2016-08-07] MEDS ORDERED: Lactated Ringer's 1,000 ML IV SCH ×2 (05:00→13:33)
[2016-08-07 05:45] LABS: BASOPHILS % (AUTO) 0.4 % (0-3); EOSINOPHILS % (AUTO) 11.5 % (0-5); MONOCYTES % (AUTO) 12.5 % (4-12); Mean Corpuscular Hemoglobin 28.1 pg (27.0-35.0); Mean Corpuscular Volume 84.7 fL (81-100); Platelet Count 307 bil/L (150-400)
[2016-08-07] MEDS: Insulin LISPRO 300 Unit/3 mL Inj SUBQ SCH ×4 (08:10→22:00)
--- NOTE | 2016-08-07 10:32 | PCM.PNMED ---
Subjective Date of Service Aug 07, 2016 Subjective Patient with the past medical history of systolic congestive heart failure with EF 20%, hepatitis C, uncontrolled diabetes with neuropathy, history of polysubstance abuse, medical non-compliance, history of strep bacteremia, LYNN was negative for endocarditis in the past, recent gangrene of his right forefoot which involved second and third toes, osteomyelitis, status post amputation of the second and third toes, medical noncompliance, history of signing AGAINST MEDICAL ADVICE and not completing antibiotic therapy in the outside hospital. Patient presented to our hospital with worsening right foot infection. He was diagnosed with acute on chronic osteomyelitis. Infectious disease and podiatry were consulted. Patient was started on IV antibiotics. Wound Cultures grew MSSA. Today patient is complaining of right foot pain and swelling, chronic wounds. Podiatry is planning transmetatarsal amputation. Patient is on Ertapenem. Exam Vital Signs Vital Sign - Last Date Time Temp Pulse Resp B/P Pulse Ox O2 Delivery O2 Flow Rate FiO2 08/07/16 09:38 36.6 71 16 101/68 99 Room Air 08/01/16 14:05 10 Intake and Output 08/06/16 08/06/16 08/07/16 Cumulative From/Thru 15:00 23:00 07:00 07/30/16 13:43 - 08/07/16 06:38 Intake Total 400 ml 834 ml 90893 ml Output Total 925 ml 1250 ml 09885 ml Balance -925 ml 400 ml -416 ml -2933 ml Intake Oral 400 ml 536 ml 9785 ml IV Total 298 ml 4432 ml Output Urine Total 925 ml 1250 ml 90953 ml Emesis 150 ml Estimated Blood Loss 10 ml # Voids 2 # Bowel Movements 0 Exam PHYSICAL EXAM: GENERAL: Alert, not in distress, in bed HEAD: atraumatic, normocephalic, no bruises. EYES: KEITH, EOMI, anicteric, able to fully open and close eyelids SKIN: Skin color normal, turgor normal. No visible rashes or lesions. Right foot in dressing EAR, NOSE, MOUTH, THROAT: Lips, oral mucosa, tongue gums, oropharynx are moist , pink, no lesions. Ears normal appearance, no lesions. NECK: Supple; ROM normal. RESPIRATORY: Lungs clear to auscultation. Good diaphragmatic excursion. CARDIAC: normal S1 and S2; no rubs, murmurs, or gallops; regular rate and rhythm ABDOMEN: Abdomen soft, not tender. BS normal. No masses or organomegaly. MUSCULOSKELETAL: ROM full, muscles are not tender, EXTREMITIES: no pitting edema in LE, right foot in dressing NEURO: Alert, oriented X 3, Sensation grossly intact., Cranial nerves II-XII intact, Grossly normal motor function. PULSES: 2+ radial, 2+ carotid REVIEW OF SYSTEMS: GENERAL: + malaise, no fevers., SEE HPI HEENT: Negative for frequent or significant headaches, No changes in hearing or vision, no nose bleeds or other nasal problems NECK: Negative for lumps, goiter, pain and significant neck swelling NEURO: No history of headaches, syncope, paralysis, seizures or tremors All other reviewed and negative other than HPI. IVs and Medications Medications Reviewed: Medications were reviewed in detail Lab and Diagnostics Result Diagram: 08/07/16 0500 08/06/16 0350 X-Rays, CTs and MRIs Right foot x-ray performed 07/30/2016 IMPRESSION: 1. A small linear metallic foreign body in the great toe. 2. Amputation of the second third toes. 3. Radiographs are not sensitive for early phase of osteomyelitis. If there is high clinical suspicion for osteomyelitis, a triple phase bone scan is suggested for further evaluation. Dictated by: Ryland Bone M.D. on 07/30/2016 at 16:14 . 12-lead ECG Sinus tachycardia, rate 107, QTC 454, "nonspecific repol abnormality." ST depression T-wave flattening in leads V4 through V6. . Cardiac Echo Impressions Echo report from [facility] performed 07/11/2016 Conclusions "Mild LVH and mild LV dilation with severe global LV dysfunction EF 20% Mild RV dilation with moderate RV dysfunction Trace mitral, aortic, tricuspid, pulmonic regurgitation." Full report can be found on page 45 of [facility] on paper chart. . Assessment & Plan Sepsis, present on admission, Acute on Chronic Osteomyelitis - Improving, not under control - Infectious disease and podiatry is on the case Plan - Continue with current antibiotics - Patient to have transmetatarsal amputation by podiatry today Chest pain with hx CAD; history of elevated troponin - resolved - According to records he was not cooperative with further cardiology workup - Continue current medications - Monitor Chronic systolic congestive heart failure - Stable - Echocardiogram from [facility] EF of 20%, with compensation. - BNP is markedly elevated Plan - Continue with current medications Poor medical compliance. - Admitted to [facility] on 07/10/16 with temperature 37.8, heart rate 102, stable blood pressure WBC count 23.3. Admission labs notable for elevated troponin I is 0.74(normal less than 0.06). Troponin sequence 0.74 , 0.69, 0.72. Echo on 07/11/16 with LVEF 20% concentric LVH severe left ventricular dysfunction. Evaluated by cardiology which recommended catheterization but patient refused due to concerns over foot. LISETTE and TBI of lower extremities revealed no significant stenosis. EKG revealed nonspecific ST and T-wave changes. Foot x-rays consistent with osteomyelitis of his right second toe, subcutaneous emphysema. Wound culture revealed alpha-hemolytic strep and mixed gram-positive cocci and coccobacilli, initially. Subsequent wound culture on 07/18 revealed Pseudomonas and MSSA. Orthopedic Dr. Perez performed amputation of right second and third toe on 07/12/16. Further operative debridement on 07/18/16. The patient was agitated for medical care issues, and possibly paranoid. He elected to leave A on 07/19/16. Uncontrolled diabetes mellitus, - Stable - Globin A1c 11.3% Plan - Continue with Accu-Cheks, insulin sliding scale, diabetic diet. - Continue with current meds Chronic Polysubstance abuse - last used methamphetamines, smoked, earlier morning before presentation to the emergency department for pain control - Social work consult for chemical dependency. Chronic tobacco abuse and dependence, present on admission, treatment initiated. - Tobacco cessation education - Nicotine transdermal patches. Anemia of chronic disease - Stable - Monitor Hyponatremia - Stable - Monitor DVT prophylaxis with subcutaneous heparin CODE STATUS full code Disposition: discharge in 1-3 days after patient improves. Plan of care, medication side effects, home medication, diagnostic procedures and available alternatives were discussed and reviewed with patient. All questions answered. Patient verbalized understanding, approved and agreed to plan of care. Given patient's current condition, I certify, in my opinion inpatient services greater than two midnights are medically necessary for this patient. Please see H&P and MD progress notes for additional information about patient's course of treatment. - GI Prophylaxis: Proton Pump Inhibitor VTE Prophylaxis: Other (heparin drip) Resuscitation Status: CPR: Attempt Resuscitation Time spent 35 min coordinating care, counselling, reviewing old records. Timmy Nelson MD Aug 07, 2016 10:32
--- NOTE | 2016-08-07 11:37 | NUR ---
Pt to OR 1100am Pt taken to OR, NPO since midnight, IV PICC 2 Lumin SL per OR request, pt on RA, BG 95 this morning, PO Coreg and ASA given this morning with sip of water, VSS, pt sleeping this morning but arousable and answers appropriately with assessment. Nursing care explained to pt before and grouped care, pt receptive and cooperative with care. Report called to Haylee in OR.
[2016-08-07] MEDS ORDERED: Lactated Ringer's 1,000 ML IV ONE (12:38)
[2016-08-07] MEDS ORDERED: Gentamicin 40 mg/mL 2 mL Inj IRRIGATION ONE (12:44)
[2016-08-07] MEDS ORDERED: Lidocaine 2%-Epi 1:100,000 20 mL Inj INFILTRATE ONE (12:45)
--- NOTE | 2016-08-07 13:32 | PCM.HPANE ---
Patient Data Surgeon Admitting Provider:Gary Rankin MD Attending Provider:Gary Rankin MD Primary Care Physician:Deric White MD Other Provider: Reason for Visit Osteomyelitis Of The Right Foot Ht/WT & BMI Height (Feet): 5 Height (Inches): 11.00 Weight (Kilograms): 82.200 Body Mass Index 25.62 Allergies Coded Allergies: codeine (Verified Adverse Reaction, Unknown, 07/30/16) Past Anesthesia History Anesthesia History: Denies:: Abnormal Airway, Anesthesia Reactions, Difficult Intubation Diabetes History Hx Diabetes?: Yes Current Bedside Blood Glucose: 95 MRSA MRSA: Yes (YEARS AGO) Medications Home Meds Incl Beta [place]: Yes Date Beta [place] Taken: Aug 07, 2016 Time Beta [place] Taken: 928 Reported Medications Melatonin 5 Mg Tablet5 Mg PO HS PRN For Insomnia 07/30/16 Nicotine 21 mg/24 hr Patch 1 Each Patch.dysq1 Patch TRANSDERM DAILY PRN For Withdrawal Symptoms Ref 0 07/30/16 Nystatin 15 Gm Powder1 Applic TP QID PRN RASH 07/30/16 Metformin (Glucophage)1,000 Mg Tablet1,000 Mg PO BIDWM Ref 0 07/30/16 Lovastatin 40 Mg Zwwwas57 Mg PO HS #30 TABLET Ref 0 07/30/16 Lisinopril 20 Mg Gyqpfn34 Mg PO QAM 30 Days Ref 0 07/30/16 Isosorbide DN 10 Mg Knppfh25 Mg PO TID Ref 0 07/30/16 Insulin Human Lispro (HumaLOG U100 Insulin Vial)100 Unit/Ml Unit3-6 Unit SUBQ TIDWM PRN HYPERGLYCEMIA #1 VIAL Ref 0 Check blood sugars before meals and at bedtime. Use correction factor only before meals. Blood Sugar Lispro Correction: <151, 0 units; 151-175, 1 unit; 176-200, 2 units; 201-225, 3 units; 226-250, 4 units; 251-275, 5 units; 276-300, 6 units; 301-325, 7 units; 326-350, 8 units; 351-375, 9 units; 376-400, 10 units; >400, 12 units. 07/30/16 Hydralazine 25 Mg Nlmtkm87 Mg PO TID Ref 0 07/30/16 Dextrose (Glucose)4 Gm Tab.chew4 Gm PO ASDIRECTED PRN HYPOGLYCEMIA 6/12/17 Glipizide 5 Mg Tablet5 Mg PO DAILYWM 30 Days 07/30/16 Furosemide 40 Mg Pqgbhd42 Mg PO QAM 07/30/16 Dextran 70/Hypromellose/Pf (Artificial Tears Drops)1 Each Droperette1 Drop BOTH_ EYES QID PRN DRY EYES #1 BOTTLE 07/30/16 Polyethylene Glycol 3350 17 Gm Powd.pack17 Gm PO QAM 07/30/16 Olanzapine ODT 5 Mg Tablet5 Mg PO Q6H PRN For Anxiety or Agitation Ref 0 07/30/16 Potassium Chloride 20 Meq/15 Ml Tbkquq65 Meq PO QAM 07/30/16 Sennosides/Docusate Sodium (Senna-Docusate Sodium Tablet)1 Each Tablet1 Each PO BID 07/30/16 Spironolactone 25 Mg Plffps18 Mg PO QAM #30 TABLET Ref 0 07/30/16 Olanzapine ODT 5 Mg Tablet5 Mg PO HS Ref 0 07/30/16 Famotidine 20 Mg Kgbdtp68 Mg PO BIDWM Ref 0 07/30/16 Digoxin 125 Mcg Rwsloy052 Mcg PO QAM #30 TABLET Ref 0 07/30/16 Carvedilol 3.125 Mg Tablet3.125 Mg PO BID Ref 0 07/30/16 Bisacodyl (Dulcolax Rectal)10 Mg Supp.rect10 Mg RC DAILY PRN For Constipation 30 Days Ref 0 07/30/16 Aspirin Chew 81 Mg Chew81 Mg PO QAM Ref 0 07/30/16 Apixaban (Eliquis)5 Mg Tablet5 Mg PO BID 07/30/16 Amiodarone 200 Mg Tvnlsa318 Mg PO QAM Ref 0 07/30/16 Albuterol HFA (Proair HFA)8.5 Gm Hfa.aer.ad6-8 Puffs INHALATION Q2H PRN For Shortness of Breath #1 INHALER 07/30/16 Acetaminophen 325 Mg Yfwxis754 Mg PO Q4H PRN For Fever Ref 0 07/30/16 History History of ENT Problems?: No HEENT History: Denies:: Abnormal Airway Cataracts Difficult Intubation Dysphagia Glaucoma Hearing Problem Sinus Problem TMJ Denture Type: Full- Upper Teeth Condition: No Teeth Missing Teeth Hx of Heart Problems?: Yes Cardiovascular History: Positive for:: Congestive Heart Failure Hypertension Hx of Respiratory Problem?: Yes Respiratory History: Positive for:: Dyspnea (USES INHALER) Denies:: Tuberculosis Hx Neurologic Problems?: Yes Neurological History: Positive for:: Dizziness Seizures (DIABETIC SEIZURE) Other Neurological Pertinent: USES CANE AT BASELINE Hx of GI Problems?: No Hx of Problems?: No Genitourinary History: Denies:: Kidney Stones Urinary Tract Infection Male Hx: Denies:: Prostate Problems Scrotal Mass Testicular Surgery Hx Musculoskeletal Problems?: Yes Musculoskeletal History: Positive for:: Back Injury (SEE TRAUMA) Musculoskeletal Trauma (FELL OFF ROOF AND BROKE BACK) Osteoarthritis Denies:: Joint Replacement Hx of Psycho/Social Problems?: Yes Psycho Social History: Positive for:: Anxiety Hx Depression Suicide Attempt (YEARS AGO) Denies:: Bipolar Disorder Hx Surgeries?: Yes Hx Any Other Health Problems?: Yes Other History: Positive for:: Hospitalization (HERNIA, FACIAL RECONSTRUCTION, OSTEOMYELITIS, BACK INJURY) Denies:: Cancer Thyroid Disease History Blood Transfusions: Positive for:: Accept Blood Products? 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 Hx Alcohol Use: Yes ("alot the last few days")Hx Substance Use: Yes (meth) Smoking Status: Current Every Day Smoker Have You Smoked inLast 12 mo: YesApprox How Many Cigarettes/day: 5 cigs/day Stop/Bang Treated for Sleep Apnea?: No Do You Have a CPAP Machine?: No S-Snoring: Do You Snore Loudly: No T-Tired: feel tired, fatigued: No O-Obsered: Observed not breath: No P-Blood Pressure: treated: Yes B- Body Mass Index > 35 kg/m2: No A- Age over 50: Yes N- Neck Large Circumference: No G- Gender Male: Yes BEV Total Score: 2 BEV Risk Assessment: Low Risk, <3 Yes Risk Assessment Category Category 1A: Patient has history of documented sleep apnea, and HAS NOT received any narcotic, sedative or anesthesia administration during this stay. Category 1B: Patient has history of documented sleep apnea, and HAS received any narcotic , sedative or anesthesia administration during this stay Category 2: Patient has SUSPECTED Obstructive Sleep Apnea, and HAS received any narcotic , sedative or anesthesia administration during this stay. Category 3: Patient has SUSPECTED Obstructive Sleep Apnea and HAS NOT received narcotic, sedative or anesthesia administration during this stay. Category 4: Outpatient in Procedural Areas with known sleep apnea or who screen positive for High Risk via the STOP/BANG questionnaire. Exam Exam Vital Signs Vital Signs Date Time Temp Pulse Resp B/P Pulse Ox O2 Delivery O2 Flow Rate FiO2 08/07/16 09:38 36.6 71 16 101/68 99 Room Air 08/07/16 09:14 71 16 98 Room Air 08/07/16 05:30 36.8 82 16 105/71 97 Room Air General Appearance: Alert, Oriented X3, Cooperative HEENT/AIRWAY: MP 2 Lungs: Clear to Auscultation Heart: Exam Unremarkable Meds/Labs/Diagnostics Admission Meds Current Medications Ertapenem/Sodium Chloride (INVanz Inj/ Normal Saline) 50 ml @ 100 mls/hr Q24H IV Last administered on 08/06/16 15:17; Start 08/06/16 at 15:00 Olanzapine (ZyPREXA) 5 mg HS PO Last administered on 08/06/16 21:45; Start at 21:00 Carvedilol (Coreg) 3.125 mg BID PO Last administered on 08/07/16 09:29; Start 08/06/16 at 21:39 Gentamicin Sulfate (Gentamicin Inj) 80 mg STK-MED ONCE IRRIGATION Last administered on 08/07/16 12:44; Start 08/07/16 at 12:44; Stop 08/07/16 at 13:03 ; Status DC Lidocaine/ Epinephrine 20 ml 20 ml STK-MED ONCE INFILTRATE Last administered on 08/07/16 12:45; Start 08/07/16 at 12:45; Stop 08/07/16 at 13:03; Status DC Lactated Ringer's (Lr) 1,000 ml @ ud STK-MED ONCE IV Last administered on 08/07 12:38; Start 08/07/16 at 12:38; Stop 08/07/16 at 13:03; Status DC Bedside Blood Glucose: 95 Labs Test 07/30/16 16:23 07/31/16 04:55 07/31/16 09:21 07/31/16 09:50 Prothrombin Time 10.0sec (8.1-12.5) Prothromb Time International Ratio 0.94ratio Hemoglobin A1c 11.3% (4.8-5.6) Lactic Acid Level 1.5mmol/L (0.4-2.0) Phosphorus Level 2.5mg/dL (2.5-4.9) Magnesium Level 1.5mg/dL (1.6-2.6) Total Bilirubin 0.4mg/dL (0.0-1.2) Aspartate Amino Transf (AST/SGOT) 38U/L (0-50) Alanine Aminotransferase (ALT/SGPT) 24U/L (0-44) Alkaline Phosphatase 154U/L (25-150) Total Protein 7.2g/dL (6.4-8.4) Albumin 3.3g/dL (3.4-5.0) Lipase 53U/L (13-60) Procalcitonin 0.04ng/mL (0.00-0.08) Troponin T 0.351ug/L (0.0-0.011) Urine Color Yellow (YELLOW) Urine Appearance Clear (CLEAR,HAZY) Urine pH 6.0 (5.0-8.0) Urine Specific [place] 1.025 (1.003-1.035) Urine Protein 100mg/dL (NEG,TRACE) Urine Glucose (UA) 1000mg/dL (NEGATIVE) Urine Ketones Negativemg/dL (NEGATIVE) Urine Occult Blood Trace (NEGATIVE) Urine Nitrite Negative (NEGATIVE) Urine Bilirubin Negative (NEGATIVE) Urine Urobilinogen Normalmg/dL (NORMAL) Urine Leukocyte Esterase Negative (NEGATIVE) Urine RBC 3-10/hpf (0-2) Urine WBC 0-5/hpf (0-5) Urine Epithelial Cells Occasional/hpf (NONE-MOD) Urine Crystals None seen (NONE SEEN) Urine Bacteria None/hpf (NONE-FEW) Urine Hyaline Casts None/lpf (NONE) Urine Granular Casts None seen (NONE SEEN) Urine Waxy Casts None seen (NONE SEEN) Urine Red Blood Cell Casts None seen (NONE SEEN) Urine White Blood Cell Casts None seen (NONE SEEN) Urine Mucus Present (None Seen) Urine Trichomonas None seen (NONE SEEN) Urine Yeast None (NONE SEEN) Urinalysis Comment Urine Culture Reflexed Not indicated Urine Opiates Screen Negative Urine Methadone Screen Negative Urine Barbiturates Screen Negative Urine Amphetamines Screen Positive Urine Benzodiazepines Screen Negative Urine Cocaine Metabolite Screen Negative Urine Cannabinoids Screen Negative Pro-B-Type Natriuretic Peptide 36775zj/mL (0-210) HIV (1&2) Ag and Ab, 4th Generation Non reactive (Non Reactive) Test 07/31/16 10:45 08/05/16 03:55 08/06/16 03:50 08/07/16 05:00 Activated Partial Thromboplast Time 38.5sec (22.8-33.0) Erythrocyte Sedimentation Rate 55mm/hr (0-30) C-Reactive Protein 1.1mg/dL (0.0-0.5) Sodium Level 133mEq/L (134-144) Potassium Level 5.1mEq/L (3.5-5.2) Chloride Level 97mEq/L (97-108) Carbon Dioxide Level 27mmol/L (18-29) Blood Urea Nitrogen 23mg/dL (6-24) Creatinine 1.10mg/dL (0.76-1.27) Estimat Glomerular Filtration Rate 74mL/min (>59) Glucose Level 165mg/dL (60-99) Calcium Level 10.2mg/dL (8.5-10.1) White Blood Count 13.6th/mm3 (3.8-10.1) Red Blood Count 4.45mil/mm3 (4.40-5.80) Hemoglobin 12.5g/dL (13.8-17.2) Hematocrit 37.7% (41.0-50.0) Mean Corpuscular Volume 84.7fL (81-100) Mean Corpuscular Hemoglobin 28.1pg (27.0-35.0) Mean Corpuscular Hemoglobin Concent 33.2% (32.0-37.0) Red Cell Distribution Width 17.9% (12.3-15.4) Platelet Count 307bil/L (150-400) Neutrophils (%) (Auto) 47.0% (40-74) Lymphocytes (%) (Auto) 27.7% (14-46) Monocytes (%) (Auto) 12.5% (4-12) Eosinophils (%) (Auto) 11.5% (0-5) Basophils (%) (Auto) 0.4% (0-3) Plan Impression Patient chart reviewed, patient interviewed and anesthestic plan with risks, benefits, and alternatives discussed, and informed consent obtained. reviewed last anesthesia record. Had significant desaturation with LMA, had to be intubated. I did the patient's previous amputation in [place] under an ankle block. DIscussed popliteal block with patient. He agreed to the risks and benefits. NPO per Anesth. Guidelines: Yes ASA Physical Status: ASA4 Life Threatening Anesthetic Plan: Regional Block Bene/Risks/Altern/Consents: Yes HP Complete Prior to Induction: Yes Lion Cook MD Aug 07, 2016 13:32
[2016-08-07] MEDS ORDERED: Lactated Ringer's 500 ML IV PRN (13:33)
[2016-08-07] MEDS ORDERED: Dexamethasone 4 mg/mL Inj IVPUSH PRN (13:35)
[2016-08-07] MEDS ORDERED: EPHEDrine Sulfate 50 mg/mL Inj IVPUSH PRN (13:35)
[2016-08-07] MEDS ORDERED: fentaNYL-PF 50 mCg/mL 2 mL Inj IVPUSH PRN (13:35)
[2016-08-07] MEDS ORDERED: Ondansetron 2 mg/mL 2 mL Inj IVPUSH PRN (13:35)
[2016-08-07] MEDS ORDERED: MetoCLOpramide 5 mg/mL 2 mL Inj IVPUSH PRN (13:35)
--- NOTE | 2016-08-07 13:44 | PCM.ANEP1 ---
Post Anesthesia PACU Phase 1 Assessment Vital Signs 97/61 SAT 98 HR 69 TEMP 36.1 RR12 Vital Signs Date Time Temp Pulse Resp B/P Pulse Ox O2 Delivery O2 Flow Rate FiO2 08/07/16 09:38 36.6 71 16 101/68 99 Room Air 08/07/16 09:14 71 16 98 Room Air Anesthetic Administered: GA Level of Alertness: Awake, talking HUGO's with Equal Strength: Yes Pain: No Pain Scale Score: 0 Nausea or Vomiting: No CV Function & Hydration Stable: Yes Airway Device: Oxygen Delivery: Room Air Lungs: Clear to Auscultation Dermatome Level: Full Sensation PACU Phase 2 Assessment Complications: No Follow up Care: No Patient Instructions Provided: N/A Lion Cook MD Aug 07, 2016 13:44
[2016-08-07] MEDS ORDERED: Phenylephrine/NS 100 mCg/mL 10 mL Syringe IVPUSH ONE (14:34)
[2016-08-07] MEDS ORDERED: Propofol 10,000 mCg/mL 20 mL Inj ONE (14:34)
--- NOTE | 2016-08-07 14:35 | PCM.PODPO ---
Podiatry Operative Report Date of Service: Aug 04, 2016 Date of Service Aug 07, 2016 Pre Operative Diagnosis Right foot partial amputation status post infection Post Operative Diagnosis Right foot partial amputation status post infection Procedure Completion of transmetatarsal amputation with double flap, right foot Surgeon Surgeon: Phoebe Vaz DPM Assistants: None Indication for Procedure Unstable partial transmetatarsal amputation, right foot Findings There was considerable blanching dorsally with elevation prior and during the procedure. The medial and plantar flap closure came together well, without tension. Details of Procedure The patient was identified in the preoperative holding area and brought back to the operating room. He was placed on the operating table in supine position. The right foot is identified as the operative site. IV sedation anesthesia was initiated. The timeout protocol was completed. The right foot was prepped and draped in the usual aseptic manner. The existing wound was excised with a #10 scalpel, a total of 7 cm x 6 cm, and 2 cm deep. The remaining metatarsals 1,4 and 5 were transected at the level of the metatarsal neck, to match the level of the previously amputated second and third ray. The toes were disarticulated and sent for pathology. I do not expect to find any active osteomyelitis in these remaining metatarsals. The soft tissue was remodeled using scissors and forceps, all tendons were resected back as far as possible. Irrigation was performed with normal saline mixed with gentamicin. A dorsal flap was fashioned from the first ray soft tissue cutting along the medial aspect of the first metatarsal. This medial flap was rotated laterally and sutured to the plantar lateral flap. In addition, the plantar flap was brought distally and dorsally to meet this interpositional medial flap. This closure was complicated and based on vascular dermatomes. The bleeding was not very significant. No tourniquet was necessary. I cauterized some vessels as needed. I placed a Cherie drain laterally to avoid hematoma. Dressing consisted of Corbett silk, 4 x 4 gauze, Kerlix, and a well-padded posterior splint the patient was weaned off of anesthesia and taken to the recovery room. Vascular status to the right foot is questionable, most likely related to inflow disease. At this point, this is the best closure flaps that could be achieved. Close follow-up with first dressing change in 2 days as planned. Grafts, Implants: None Complications There were no periprocedural complications identified. Condition Stable Anesthetic Administered: GA, MAC, Regional Block (popliteal) Drains: None Catheters: None Output, Estimated Blood Loss: 20 (ml) Blood Admin during surgery: No Surgical Cast or Splint: None Surgical Specimen Removed: Yes Specimen sent to Pathology: Yes Surgical Specimen description: Transmetatarsal bone and soft tissue fragments Post Operative Plan Nonweightbearing on the right foot. Physical therapy to help with mobilization. Bedrest for the first 24 hours. First dressing change in 48 hours. The right foot is to remain dry and the dressing intact. The right foot is to remain elevated whenever possible. Discharge plans with support could be aimed at Saturday, without support I anticipate not until mid to late next week Phoebe Vaz DPM Aug 07, 2016 14:35
[2016-08-07] MEDS: Polyethylene Glycol (PEG) 17 Gm Powder PO SCH (15:21)
[2016-08-07] MEDS: Potassium Chloride 20 mEq/15 mL 15mL Oral Soln PO SCH (15:22)
[2016-08-07] MEDS: Multivit-Miner-Folic Acid-Iron Tablet PO SCH (15:23)
[2016-08-07] MEDS: Ertapenem Inj 1,000 MG in 0.9% Sodium Chloride 50 ML IV SCH (15:25)
--- NOTE | 2016-08-07 17:30 | NUR ---
Return From OR Pt return from OR, A&Ox3, able to HUGO; cast with sybil wrap on RLE, no c/o pain, VSS, BG 170 and states "starving". Food ordered and pt intake very well, no c/o n/v. BM today during shift, up to BR with SBA for IV lines and FWW, steady and tolerated well. Will continue to monitor with frequent rounds.
[2016-08-07] MEDS: Insulin GLARgine 100 Unit/mL Syringe SUBQ SCH (22:19)
[2016-08-08] MEDS: Heparin 5,000 Unit/mL Inj SUBQ SCH ×4 (00:24→09:58)
[2016-08-08] MEDS: Sodium Chloride LOK Flush 10 mL Syringe IVFLUSH SCH ×4 (00:25→10:16)
--- NOTE | 2016-08-08 00:25 | NUR ---
Behavior Pt refusing heparin injection. Stating that his sleep is more important. Pt aware of the heparin injection dose timing and stated he hasn't gotten any sleep all night despite having been sleeping since start of shift with intermittent interruptions. Pt continuing to refuse. Pt then threatening to discharge himself in the AM and that he would be talking to his doctor about sleep interruptions. Pt argued for ~3+ minutes when injection could have been given and completed. Pt with increasing agitation, DRIED YEAST SUPERVISOR present and pt stopped and then again refused. clinical supervisor made aware.
[2016-08-08] MEDS: Ondansetron 2 mg/mL 2 mL Inj IVPUSH PRN (04:06)
[2016-08-08] MEDS ORDERED: HYDROmorphone 1 mg/mL Inj IVPUSH ONE (04:25)
[2016-08-08 05:00] VITALS: BP 144/83; PULSE 90; RESP 17; O2SAT 98
[2016-08-08] MEDS: Insulin LISPRO 300 Unit/3 mL Inj SUBQ SCH ×2 (08:00→12:27)
[2016-08-08] MEDS: Polyethylene Glycol (PEG) 17 Gm Powder PO SCH ×2 (08:30→09:59)
[2016-08-08 09:30] VITALS: PULSE 84; RESP 18; O2SAT 98
[2016-08-08 09:55] VITALS: BP 92/61; PULSE 86; RESP 17; O2SAT 96
[2016-08-08] MEDS: Multivit-Miner-Folic Acid-Iron Tablet PO SCH (09:57)
[2016-08-08] MEDS: Potassium Chloride 20 mEq/15 mL 15mL Oral Soln PO SCH (09:59)
--- NOTE | 2016-08-08 10:24 | NUR ---
Behavior/Heparin/Miralax Unable to do an assessment on pt, stated he did not want anyone bothering him. Stated he only wanted his pain medication. Administered pain medication. Pt became hostile, verbally abusive toward nurse, web consultant present, after taking pain medication. Ordered this nurse out of his room. Proceeded to yell and swear at nurse. Notified charge nurse Sienna Refused Heparin. Refused Miralax. Addendum: 08/08/16 at 1217 by KIA HARRIS RN Pt refused blood glucose check
--- NOTE | 2016-08-08 10:33 | NUR ---
Spoke with Pamela in patient access at [facility] and there are no beds available today. Updated TRAFFIC ASSISTANT Addendum: 08/08/16 at 1131 by TERESITA HANNA CM Faxed clinical update to Pamela at [facility] patient access. [phone] Updated TRAFFIC ASSISTANT
--- NOTE | 2016-08-08 11:31 | PCM.PNMED ---
Subjective Date of Service Aug 08, 2016 Subjective Patient with the past medical history of systolic congestive heart failure with EF 20%, hepatitis C, uncontrolled diabetes with neuropathy, history of polysubstance abuse, medical non-compliance, history of strep bacteremia, LYNN was negative for endocarditis in the past, recent gangrene of his right forefoot which involved second and third toes, osteomyelitis, status post amputation of the second and third toes, medical noncompliance, history of signing AGAINST MEDICAL ADVICE and not completing antibiotic therapy in the outside hospital. Patient presented to our hospital with worsening right foot infection. He was diagnosed with acute on chronic osteomyelitis. Infectious disease and podiatry were consulted. Patient was started on IV antibiotics. Wound Cultures grew MSSA. Patient underent transmetatarsal amputation 08/07/16. Today patient is complaining of right foot pain. Patient is on Ertapenem now. BP on the lower side, I will d/c Lisinopril and decrease Lasix to 20 mg qd. Exam Vital Signs Vital Sign - Last Date Time Temp Pulse Resp B/P Pulse Ox O2 Delivery O2 Flow Rate FiO2 08/08/16 09:55 36.7 86 17 92/61 96 Room Air Intake and Output 08/07/16 08/07/16 08/08/16 Cumulative From/Thru 15:00 23:00 07:00 07/30/16 13:43 - 08/08/16 04:59 Intake Total 500 ml 964 ml 880 ml 79838 ml Output Total 20 ml 1200 ml 1350 ml 67147 ml Balance 480 ml -236 ml -470 ml -3159 ml Intake Oral 873 ml 800 ml 37924 ml IV Total 500 ml 91 ml 80 ml 5103 ml Output Urine Total 1200 ml 950 ml 12589 ml Emesis 400 ml 550 ml Estimated Blood Loss 20 ml 30 ml # Voids 2 # Bowel Movements 0 0 Exam GENERAL: Alert, not in distress HEAD: atraumatic, normocephalic EYES: KEITH, EOMI, anicteric SKIN: Skin color normal, turgor normal. No visible rashes or lesions. EAR, NOSE, MOUTH, THROAT: Lips, oral mucosa, tongue are moist, pink, no lesions NECK: no jugulovenous distention, supple, no enlarged lymph nodes appreciated; ROM normal. RESPIRATORY: Lungs clear to auscultation. Good diaphragmatic excursion. CARDIAC: normal S1 and S2; no rubs, murmurs, or gallops; regular rate and rhythm ABDOMEN: Abdomen soft, non-tender. BS normal. No masses or organomegaly. MUSCULOSKELETAL: ROM full, muscles are not tender, s/p transmetatarsal foot amputation EXTREMITIES: no pitting edema in LE, no deformities, clubbing or skin discoloration. NEURO: Alert, oriented X 3,Cranial nerves II-XII intact PULSES: 2+ radial, 2+ carotid REVIEW OF SYSTEMS: GENERAL: No weight loss, no malaise, no fevers., SEE HPI HEENT: Negative for frequent or significant headaches NECK: Negative for lumps, goiter, pain and significant neck swelling All other reviewed and negative other than HPI. IVs and Medications Medications Reviewed: Medications were reviewed in detail Lab and Diagnostics Result Diagram: 08/07/16 0500 08/06/16 0350 X-Rays, CTs and MRIs Right foot x-ray performed 07/30/2016 IMPRESSION: 1. A small linear metallic foreign body in the great toe. 2. Amputation of the second third toes. 3. Radiographs are not sensitive for early phase of osteomyelitis. If there is high clinical suspicion for osteomyelitis, a triple phase bone scan is suggested for further evaluation. Dictated by: Ryland Bone M.D. on 07/30/2016 at 16:14 . 12-lead ECG Sinus tachycardia, rate 107, QTC 454, "nonspecific repol abnormality." ST depression T-wave flattening in leads V4 through V6. . Cardiac Echo Impressions Echo report from [facility] performed 07/11/2016 Conclusions "Mild LVH and mild LV dilation with severe global LV dysfunction EF 20% Mild RV dilation with moderate RV dysfunction Trace mitral, aortic, tricuspid, pulmonic regurgitation." Full report can be found on page 45 of 62 [facility] records on paper chart. . Assessment & Plan Sepsis, present on admission, Acute on Chronic Osteomyeliti, s/p transmetatarsal amputation - Improving, not under control - Infectious disease and podiatry is on the case Plan - Continue with current antibiotics as per ID - Patient to have by podiatry today Chest pain with hx CAD; history of elevated troponin - resolved - According to records he was not cooperative with further cardiology workup - Continue current medications - Monitor Chronic systolic congestive heart failure - Stable - Echocardiogram from [facility] EF of 20%, with compensation. - BNP is markedly elevated Plan - BP on the lower side, will hod Lisinopril for now and decrease Lasix to 20 mg daily. - monitor BP Poor medical compliance. - Admitted to [facility] on 07/10/16 with temperature 37.8, heart rate 102, stable blood pressure WBC count 23.3. Admission labs notable for elevated troponin I is 0.74(normal less than 0.06). Troponin sequence 0.74 , 0.69, 0.72. Echo on 07/11/16 with LVEF 20% concentric LVH severe left ventricular dysfunction. Evaluated by cardiology which recommended catheterization but patient refused due to concerns over foot. LISETTE and TBI of lower extremities revealed no significant stenosis. EKG revealed nonspecific ST and T-wave changes. Foot x-rays consistent with osteomyelitis of his right second toe, subcutaneous emphysema. Wound culture revealed alpha-hemolytic strep and mixed gram-positive cocci and coccobacilli, initially. Subsequent wound culture on 07/18 revealed Pseudomonas and MSSA. Orthopedic Dr. Peerz performed amputation of right second and third toe on 07/12/16. Further operative debridement on 07/18/16. The patient was agitated for medical care issues, and possibly paranoid. He elected to leave A on 07/19/16. Uncontrolled diabetes mellitus, - Stable - Globin A1c 11.3% Plan - Continue with Accu-Cheks, insulin sliding scale, diabetic diet. - Continue with current meds Chronic Polysubstance abuse - last used methamphetamines, smoked, earlier morning before presentation to the emergency department for pain control - Social work consult for chemical dependency. Chronic tobacco abuse and dependence, present on admission, treatment initiated. - Tobacco cessation education - Nicotine transdermal patches. Anemia of chronic disease - Stable - Monitor Hyponatremia - Stable - Monitor DVT prophylaxis with subcutaneous heparin CODE STATUS full code Disposition: discharge in 1-3 days after patient improves. Plan of care, diagnostic procedures and available alternatives were discussed and reviewed with patient. All questions answered. Patient verbalized understanding. Given patient's current condition, I certify, in my opinion inpatient services greater than two midnights are medically necessary for this patient. Please see H&P and MD progress notes for additional information about patient's course of treatment. - GI Prophylaxis: Proton Pump Inhibitor VTE Prophylaxis: Other (heparin drip) Resuscitation Status: CPR: Attempt Resuscitation Timmy Nelson MD Aug 08, 2016 11:31
--- NOTE | 2016-08-08 14:35 | NUR ---
AMA Pt repeatedly stating to this RN and DEVELOPMENTAL THERAPIST he is leaving. Demanding clothes, demanding DEVELOPMENTAL THERAPIST get his clothes. Asking for belongings. Educated pt on risks of leaving against medical advice. Pt stated he did not care, stated he was done with this place, stated he wanted to leave now. Pt was hostile with nurse demanding his clothes to leave. Educated pt again about risks involved. +DEVELOPMENTAL THERAPIST again for clothes. software development intern following situation. Pt stated he wanted to leave AMA, asked for papers to sign. software development intern met with pt. Pt signed papers. Asked for clothes. Pt left AMA at approximately 1440 with all personal belongings. Escorted by DEVELOPMENTAL THERAPIST in wheelchair to front door.
--- NOTE | 2016-08-08 14:36 | NUR ---
Social Work- Update Note EMR reviewed. Per chart review, Patient with the past medical history of polysubstance abuse, medical non-compliance, history of strep bacteremia, LYNN was negative for endocarditis in the past, recent gangrene of his right forefoot which involved second and third toes, osteomyelitis, medical noncompliance, history of signing AGAINST MEDICAL ADVICE (last time 07/19) and not completing antibiotic therapy in the outside hospital. Pt admitted on 07/30/16 for osteomyelitis of the right foot. Pt is status post amputation on 08/07. SW met with pt today regarding discharge plan, polysubstance use. Pt was not willing to speak with FRONT DESK SUPERVISOR regarding polysubstance use. Pt states that "when my pain goes away I don't think I will use anymore because I won't be self-medicating." Pt unwilling to discuss further. SW later informed that pt is electing to leave AMA without completing his course of IV abx. CONSTANTINE Humphrey
--- NOTE | 2016-08-09 15:08 | PCM.DC.MED ---
Discharge Summary Date of Service Aug 09, 2016 Dates of Hospitalization Date of Hospital Admission Jul 30, 2016 at 19:39 Date of Discharge: Aug 08, 2016 Providers: Admitting Physician: Gary Rankin MD Primary Care Physician: Deric White MD Attending Physician: Gary Rankin MD Diagnosis at Time of Discharge Diagnosis at Time of Discharge Sepsis, Acute on Chronic Osteomyeliti, s/p transmetatarsal amputation Chronic systolic congestive heart failure Poor medical compliance. Uncontrolled diabetes mellitus, Chronic Polysubstance abuse Chronic tobacco abuse and dependence Anemia of chronic disease Hyponatremia Procedures XRay, CTs & MRIs Right foot x-ray performed 07/30/2016 IMPRESSION: 1. A small linear metallic foreign body in the great toe. 2. Amputation of the second third toes. 3. Radiographs are not sensitive for early phase of osteomyelitis. If there is high clinical suspicion for osteomyelitis, a triple phase bone scan is suggested for further evaluation. Dictated by: Ryland Bone M.D. on 07/30/2016 at 16:14 . ECG 12 Lead Sinus tachycardia, rate 107, QTC 454, "nonspecific repol abnormality." ST depression T-wave flattening in leads V4 through V6. . Cardiac Echo Impression Echo report from [facility] performed 07/11/2016 Conclusions "Mild LVH and mild LV dilation with severe global LV dysfunction EF 20% Mild RV dilation with moderate RV dysfunction Trace mitral, aortic, tricuspid, pulmonic regurgitation." Full report can be found on page 45 of 62 [facility] records on paper chart. . Brief History HPI obtained by Dr. Rankin on 07/30 Patient is a 56-year-old gentleman with history of coronary artery disease, diabetes mellitus, hepatitis C, polysubstance abuse. He is status post recent amputation of right second and third right toes, he was admitted to [facility] [place] [place], [facility], on 07/10/2016 the diagnosis of osteomyelitis and gangrene of said toes. He claims the infection started after he was working on a wood floor in a house that was contaminated with asbestos and began a blister he had them on both feet once on his left foot went away but the ones on his right foot just started draining and getting worse. 4 days ago he left AMA from [facility] with wound still open, stating that there was a conflict with one of the physicians there regarding his pain management he said he thought that he was being terrorized they were trying to kill him. [facility], currently he describes the pain is sharp, and his right foot, referring up into his leg, 11 out of 10, worst pain he ever felt "I have never been afraid of anything in my life but this is scaring me" he denies any fevers, chills, chest pain, shortness of breath, N/VD, states he does get some lightheadedness and some dizziness when he tries ambulating on his foot. No suicidal or homicidal ideations, denies hallucinations. States he last used methamphetamines early this morning to control the pain as well as drinking copious amounts of alcohol. In the emergency department breathalyzer was 0.00. 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 During his hospitalization he underwent right heart catheterization, underwent LYNN did not show any vegetations, was placed on amiodarone for atrial flutter, is significantly hyponatremic, and described as being a poor historian. LISETTE were performed of bilateral lower extremities, right was found to be within normal limits, left LISETTE was mildly abnormal, with left toe brachial index within normal limits. Presenting vitals to the emergency department showed a temperature of 35.8 Celsius, heart rate 114, 18 respirations per minute, blood pressure 136/89, pulse ox 100% on room air. White blood cells 12.6, hemoglobin 11.3 CMP: Sodium 132 l, blood glucose 307 Lactic acid 1.5 Troponin 0.302 CRP 1.3, ESR 41 EKG showed sinus tachycardia, QTC 454. ST depression in leads V4 through V6. Plain radiographs were performed, small linear metallic foreign body in great toe, recommended "triple phase bone scan for further evaluation" Patient was discussed with Dr. Phoebe Vaz DPM, who agreed to accept the patient for surgical evaluation of osteomyelitis. Wound cultures showed few coliform gram-negative bacilli, many staph aureus, moderate enterococcus species, rare pseudomonas aeruginosa, moderate presumptive Proventil species, many anaerobic gram-positive cocci, few white blood cells, many gram-positive cocci in pairs and clusters, few gram-positive. Sensitivities are on page 57 of 62 of hospital chart. Review of Abx showed he was on Vancomycin and Zosyn. Hospital Course patient left AMA on 08/[address]Andriy hogan. Please refer to RN report below Pt repeatedly stating to this RN and SAND CASTER he is leaving. Demanding clothes, demanding SAND CASTER get his clothes. Asking for belongings. Educated pt on risks of leaving against medical advice. Pt stated he did not care, stated he was done with this place, stated he wanted to leave now. Pt was hostile with nurse demanding his clothes to leave. Educated pt again about risks involved. +SAND CASTER again for clothes. pipe line repairer following situation. Pt stated he wanted to leave AMA, asked for papers to sign. pipe line repairer met with pt. Pt signed papers. Asked for clothes. Pt left AMA at approximately 1440 with all personal belongings. Escorted by SAND CASTER in wheelchair to front door. Sepsis, present on admission, Acute on Chronic Osteomyeliti, s/p transmetatarsal amputation - Improving, not under control - Infectious disease and podiatry is on the case Plan - Continue with current antibiotics as per ID - Patient to have by podiatry today Chest pain with hx CAD; history of elevated troponin - resolved - According to records he was not cooperative with further cardiology workup - Continue current medications - Monitor Chronic systolic congestive heart failure - Stable - Echocardiogram from [facility] EF of 20%, with compensation. - BNP is markedly elevated Plan - BP on the lower side, will hod Lisinopril for now and decrease Lasix to 20 mg daily. - monitor BP Poor medical compliance. - Admitted to [facility] on 07/10/16 with temperature 37.8, heart rate 102, stable blood pressure WBC count 23.3. Admission labs notable for elevated troponin I is 0.74(normal less than 0.06). Troponin sequence 0.74 , 0.69, 0.72. Echo on 07/11/16 with LVEF 20% concentric LVH severe left ventricular dysfunction. Evaluated by cardiology which recommended catheterization but patient refused due to concerns over foot. LISETTE and TBI of lower extremities revealed no significant stenosis. EKG revealed nonspecific ST and T-wave changes. Foot x-rays consistent with osteomyelitis of his right second toe, subcutaneous emphysema. Wound culture revealed alpha-hemolytic strep and mixed gram-positive cocci and coccobacilli, initially. Subsequent wound culture on 07/18 revealed Pseudomonas and MSSA. Orthopedic Dr. Perez performed amputation of right second and third toe on 07/12/16. Further operative debridement on 07/18/16. The patient was agitated for medical care issues, and possibly paranoid. He elected to leave [place] on 07/19/16. Uncontrolled diabetes mellitus, - Stable - Globin A1c 11.3% Plan - Continue with Accu-Cheks, insulin sliding scale, diabetic diet. - Continue with current meds Chronic Polysubstance abuse - last used methamphetamines, smoked, earlier morning before presentation to the emergency department for pain control - Social work consult for chemical dependency. Chronic tobacco abuse and dependence, present on admission, treatment initiated. - Tobacco cessation education - Nicotine transdermal patches. Anemia of chronic disease - Stable - Monitor Hyponatremia - Stable - Monitor DVT prophylaxis with subcutaneous heparin CODE STATUS full code Disposition: discharge in 1-3 days after patient improves. Plan of care, diagnostic procedures and available alternatives were discussed and reviewed with patient. All questions answered. Patient verbalized understanding. Given patient's current condition, I certify, in my opinion inpatient services greater than two midnights are medically necessary for this patient. Please see H&P and MD progress notes for additional information about patient's course of treatment. - Exam Vital Signs (Last) Date Time Temp Pulse Resp B/P Pulse Ox O2 Delivery O2 Flow Rate FiO2 08/08/16 09:55 36.7 86 17 92/61 96 Room Air Test 07/30/16 16:23 07/31/16 04:55 07/31/16 09:21 07/31/16 09:50 Prothrombin Time 10.0sec (8.1-12.5) Prothromb Time International Ratio 0.94ratio Hemoglobin A1c 11.3% (4.8-5.6) Lactic Acid Level 1.5mmol/L (0.4-2.0) Phosphorus Level 2.5mg/dL (2.5-4.9) Magnesium Level 1.5mg/dL (1.6-2.6) Total Bilirubin 0.4mg/dL (0.0-1.2) Aspartate Amino Transf (AST/SGOT) 38U/L (0-50) Alanine Aminotransferase (ALT/SGPT) 24U/L (0-44) Alkaline Phosphatase 154U/L (25-150) Total Protein 7.2g/dL (6.4-8.4) Albumin 3.3g/dL (3.4-5.0) Lipase 53U/L (13-60) Procalcitonin 0.04ng/mL (0.00-0.08) Troponin T 0.351ug/L (0.0-0.011) Urine Color Yellow (YELLOW) Urine Appearance Clear (CLEAR,HAZY) Urine pH 6.0 (5.0-8.0) Urine Specific [place] 1.025 (1.003-1.035) Urine Protein 100mg/dL (NEG,TRACE) Urine Glucose (UA) 1000mg/dL (NEGATIVE) Urine Ketones Negativemg/dL (NEGATIVE) Urine Occult Blood Trace (NEGATIVE) Urine Nitrite Negative (NEGATIVE) Urine Bilirubin Negative (NEGATIVE) Urine Urobilinogen Normalmg/dL (NORMAL) Urine Leukocyte Esterase Negative (NEGATIVE) Urine RBC 3-10/hpf (0-2) Urine WBC 0-5/hpf (0-5) Urine Epithelial Cells Occasional/hpf (NONE-MOD) Urine Crystals None seen (NONE SEEN) Urine Bacteria None/hpf (NONE-FEW) Urine Hyaline Casts None/lpf (NONE) Urine Granular Casts None seen (NONE SEEN) Urine Waxy Casts None seen (NONE SEEN) Urine Red Blood Cell Casts None seen (NONE SEEN) Urine White Blood Cell Casts None seen (NONE SEEN) Urine Mucus Present (None Seen) Urine Trichomonas None seen (NONE SEEN) Urine Yeast None (NONE SEEN) Urinalysis Comment Urine Culture Reflexed Not indicated Urine Opiates Screen Negative Urine Methadone Screen Negative Urine Barbiturates Screen Negative Urine Amphetamines Screen Positive Urine Benzodiazepines Screen Negative Urine Cocaine Metabolite Screen Negative Urine Cannabinoids Screen Negative Pro-B-Type Natriuretic Peptide 51324zb/mL (0-210) HIV (1&2) Ag and Ab, 4th Generation Non reactive (Non Reactive) Test 07/31/16 10:45 08/05/16 03:55 08/06/16 03:50 08/07/16 05:00 Activated Partial Thromboplast Time 38.5sec (22.8-33.0) Erythrocyte Sedimentation Rate 55mm/hr (0-30) C-Reactive Protein 1.1mg/dL (0.0-0.5) Sodium Level 133mEq/L (134-144) Potassium Level 5.1mEq/L (3.5-5.2) Chloride Level 97mEq/L (97-108) Carbon Dioxide Level 27mmol/L (18-29) Blood Urea Nitrogen 23mg/dL (6-24) Creatinine 1.10mg/dL (0.76-1.27) Estimat Glomerular Filtration Rate 74mL/min (>59) Glucose Level 165mg/dL (60-99) Calcium Level 10.2mg/dL (8.5-10.1) White Blood Count 13.6th/mm3 (3.8-10.1) Red Blood Count 4.45mil/mm3 (4.40-5.80) Hemoglobin 12.5g/dL (13.8-17.2) Hematocrit 37.7% (41.0-50.0) Mean Corpuscular Volume 84.7fL (81-100) Mean Corpuscular Hemoglobin 28.1pg (27.0-35.0) Mean Corpuscular Hemoglobin Concent 33.2% (32.0-37.0) Red Cell Distribution Width 17.9% (12.3-15.4) Platelet Count 307bil/L (150-400) Neutrophils (%) (Auto) 47.0% (40-74) Lymphocytes (%) (Auto) 27.7% (14-46) Monocytes (%) (Auto) 12.5% (4-12) Eosinophils (%) (Auto) 11.5% (0-5) Basophils (%) (Auto) 0.4% (0-3) Discharge Medications Discharge Medications Amiodarone (Amiodarone) 200 Mg Tablet 200 MG PO QAM (Reported) Apixaban (Eliquis) 5 Mg Tablet 5 MG PO BID (Reported) Aspirin Chew (Aspirin Chew) 81 Mg Chew 81 MG PO QAM (Reported) Carvedilol (Carvedilol) 3.125 Mg Tablet 3.125 MG PO BID (Reported) Digoxin (Digoxin) 125 Mcg Tablet 125 MCG PO QAM (Reported) Famotidine (Famotidine) 20 Mg Tablet 20 MG PO BIDWM (Reported) Furosemide (Furosemide) 40 Mg Tablet 40 MG PO QAM (Reported) Glipizide (Glipizide) 5 Mg Tablet 5 MG PO DAILYWM (Reported) Hydralazine (Hydralazine) 25 Mg Tablet 25 MG PO TID (Reported) Isosorbide DN (Isosorbide DN) 10 Mg Tablet 10 MG PO TID (Reported) Lisinopril (Lisinopril) 20 Mg Tablet 20 MG PO QAM (Reported) Lovastatin (Lovastatin) 40 Mg Tablet 40 MG PO HS (Reported) Metformin (Glucophage) 1,000 Mg Tablet 1,000 MG PO BIDWM (Reported) Olanzapine ODT (Olanzapine ODT) 5 Mg Tablet 5 MG PO HS (Reported) Polyethylene Glycol 3350 (Polyethylene Glycol 3350) 17 Gm Powd.pack 17 GM PO QAM (Reported) Potassium Chloride (Potassium Chloride) 20 Meq/15 Ml Liquid 20 MEQ PO QAM ( Reported) Sennosides/Docusate Sodium (Senna-Docusate Sodium Tablet) 1 Each Tablet 1 EACH PO BID (Reported) Spironolactone (Spironolactone) 25 Mg Tablet 25 MG PO QAM (Reported) As needed Acetaminophen (Acetaminophen) 325 Mg Tablet 650 MG PO Q4H PRN PRN For Fever ( Reported) Albuterol HFA (Proair HFA) 8.5 Gm Hfa.aer.ad 6-8 PUFFS INHALATION Q2H PRN PRN For Shortness of Breath (Reported) Bisacodyl (Dulcolax Rectal) 10 Mg Supp.rect 10 MG RC DAILY PRN PRN For Constipation (Reported) Dextran 70/Hypromellose/Pf (Artificial Tears Drops) 1 Each Droperette 1 DROP BOTH_EYES QID PRN PRN DRY EYES (Reported) Dextrose (Glucose) 4 Gm Tab.chew 4 GM PO ASDIRECTED PRN PRN HYPOGLYCEMIA ( Reported) Insulin Human Lispro (HumaLOG U100 Insulin Vial) 100 Unit/Ml Unit 3-6 UNIT SUBQ TIDWM PRN PRN HYPERGLYCEMIA (Reported) Check blood sugars before meals and at bedtime. Use correction factor only before meals. Blood Sugar Lispro Correction: <151, 0 units; 151-175, 1 unit; 176-200, 2 units; 201-225, 3 units; 226-250, 4 units; 251-275, 5 units; 276-300 , 6 units; 301-325, 7 units; 326-350, 8 units; 351-375, 9 units; 376-400, 10 units; >400, 12 units. Melatonin (Melatonin) 5 Mg Tablet 5 MG PO HS PRN PRN For Insomnia (Reported) Nicotine 21 mg/24 hr Patch (Nicotine 21 mg/24 hr Patch) 1 Each Patch.dysq 1 PATCH TRANSDERM DAILY PRN PRN For Withdrawal Symptoms (Reported) Nystatin (Nystatin) 15 Gm Powder 1 APPLIC TP QID PRN PRN RASH (Reported) Olanzapine ODT (Olanzapine ODT) 5 Mg Tablet 5 MG PO Q6H PRN PRN For Anxiety or Agitation (Reported) Followup Plan Disposition: AMA Time spent 65min Monika Pascual MD Aug 09, 2016 15:08
--- NOTE | 2016-08-13 11:35 | PATH ---
SURGICAL PATHOLOGY Attending Physician:Phoebe Vaz CASE STATUS: Signed Out PATIENT NAME: ROCIO MCKEON PID: [id number] : 1960 DATE COLLECTED:08/07/2016 00:00 SPECIMEN: Extremity Amputation, Non-Traumatic CLINICAL HISTORY: OSTEOMYELITIS, COMPLETED AMPUTATION FOR STRUCTURAL STABILITY 1). RIGHT FOREFOOT FINAL DIAGNOSIS: 1.RIGHT FOREFOOT: 1. STATUS POST AMPUTATION OF TOES #2 AND 3. 2. CELLULITIS AND REACTIVE BONE CHANGES. 3. NO OSTEONECROSIS OR NEOPLASIA IDENTIFIED. ICD10 L03.031 GROSS DESCRIPTION: The specimen is received in formalin, labeled with the patient's name, sublabeled as right forefoot, and consists of resected toes from the right foot and includes toe #1 (8.2 cm AP, 2.3 cm SI, 3.2 cm ML) and toes #4 and #5 (7.2 cm AP, 1.9 cm SI, 3.7 cm ML). Toes #4 and #5 are attached by skin and soft tissue. The toenails are present. The skin is [place]-pink smooth and shiny. A crusted over ulcer (0.2 x 0.1 cm) surrounded by flaky skin is identified on toe #1 located on the central inferoanterior aspect 9.0 cm from the bone, 3.7 cm from the superior, and 4.3 cm from the inferior skin and soft tissue resection margins. The bone underlying the ulcer is hard and cannot be sliced with a scalpel. The bone cut surface is li-yellow and unremarkable. Toe #5 bone is easily sliced with a scalpel and has a li-yellow porous cut surface. Ink code: blue-bone resection margin; black-superior; orange-inferior. Section code: (A) toe #1 skin and soft tissue resection margins, off premise service representative; (B) toe #1 bone resection margin; (C) toe #1 ulcer, entirely submitted; (D) bone underlying ulcer, serially sectioned, off premise service representative; (E) toes #4 and #5 bone resection margins; (F) toes #4 and #5 skin and soft tissue resection margins, off premise service representative; (G) toe #4 bone, serially sectioned, off premise service representative; (H) toe #5 bone, serially sectioned, off premise service representative. Note: The bone sections have been decalcified. 08/09/16 JM MICRO DESCRIPTION: See diagnosis. ICD-9 CODES: CPT CODES: 1: 44883, 88131 Electronically Signed Out Oriana Strong MD [facility] [address], [place] [address] Technical component performed at [facility], [facility] [address], [place], [address]
== END 2016-08-08 14:35 | disposition left against medical advice (07) | DRG 854 ==
LOC: SED 13:39 → OSC 19:39 → PCC 21:50 → OSC 08-02 10:37
PROVIDERS: ADMIT Hospitalist; ATTEND Hospitalist
PROC: 0LBV0ZZ Excision of Right Foot Tendon, Open Approach (ICD-10-PCS; 2016-08-01)
PROC: 0KBV0ZZ Excision of Right Foot Muscle, Open Approach (ICD-10-PCS; principal; 2016-08-01 12:30)
PROC: 0Y6M0Z9 Detachment at Right Foot, Partial 1st Ray, Open Approach (ICD-10-PCS; 2016-08-07)
PROC: 0Y6M0ZD Detachment at Right Foot, Partial 4th Ray, Open Approach (ICD-10-PCS; 2016-08-07)
PROC: 0Y6M0ZF Detachment at Right Foot, Partial 5th Ray, Open Approach (ICD-10-PCS; 2016-08-07)
DX: A41.9 Sepsis, unspecified organism (principal); M86.171 Other acute osteomyelitis, right ankle and foot; I50.22 Chronic systolic (congestive) heart failure; M86.671 Other chronic osteomyelitis, right ankle and foot; E11.52 Type 2 diabetes mellitus with diabetic peripheral angiopathy with gangrene; E87.1 Hypo-osmolality and hyponatremia; E11.69 Type 2 diabetes mellitus with other specified complication; I10 Essential (primary) hypertension; I25.10 Atherosclerotic heart disease of native coronary artery without angina pectoris; F17.210 Nicotine dependence, cigarettes, uncomplicated; E11.65 Type 2 diabetes mellitus with hyperglycemia; B95.61 Methicillin susceptible Staphylococcus aureus infection as the cause of diseases classified elsewhere; D64.9 Anemia, unspecified

== ENCOUNTER 2016-08-31 15:59 | Emergency (ER) | payer OTHER ==
[~2016-08-31] VITALS: Ht 180.3 cm; Wt 77.3 kg
[~2016-08-31 15:59] MED LIST: ACET325T51 PO; ALBU8.5H2 INHALATION; AMIO200T PO; APIX5TAB PO; ASPI81TA3 PO; BISA10SU61 RC; CARV3.122 PO; DEXT1DRO8 BOTH_EYES; DEXT4TAB PO; DIGO125T73 PO; FAMO20TA4 PO; FURO40TA4 PO; GLPZ5T PO; HYDR-3939 PO; INSLIS SUBQ; ISOS10TA2 PO; LISI-567 PO; LOVA40TA PO; MELA5TAB14 PO; METF1000 PO; NICO1PAT16 TRANSDERM; NYST15PO5 TP; OLAN5TAB39 PO; POLY17PO2 PO; POTA20LI2 PO; SENN1TAB90 PO; SPIR25TA3 PO
--- NOTE | 2016-08-31 16:05 | NUR ---
Spoke with Pamela in patient access at [facility] and he is 100% connected and also hold [facility]. She is putting him in and we will continue to check for beds if patient is admitted.
[2016-08-31 16:30] VITALS: BP 111/73; PULSE 103; RESP 24; O2SAT 99
--- NOTE | 2016-08-31 18:32 | ED.REPORT ---
HPI-Extremity Problem Lower Date of Service Aug 31, 2016 ED Provider: Dr. Sanchez Pt is a 56 y/o male w/ a hx of right foot osteomyelitis s/p recent complete trans metatarsal amputation, DM, Hep C, HTN, polysubstance abuse, presenting to the ED for post-surgical recheck. The patient was admitted to [facility] from July 30 - for osteomyelitis of the right foot along with sepsis and had a complete transmetatarsal amputation with double flap performed by backwinder Dr. Vaz. After the procedure the patient left AMA and therefore had no follow-up with the surgeon. [facility] because they didn't want to take out the sutures because "they didn't have anything to do with the surgery". Pt denies increase in pain, fever, chills. Nursing Notes Stated Complaint: [facility] Chief Complaint: Extremity Trauma Nursing Notes Reviewed: Yes Allergies: Coded Allergies: codeine (Verified Adverse Reaction, Unknown, 07/30/16) Scheduled Amiodarone (Amiodarone) 200 Mg Tablet 200 MG PO QAM Apixaban (Eliquis) 5 Mg Tablet 5 MG PO BID Aspirin Chew (Aspirin Chew) 81 Mg Chew 81 MG PO QAM Carvedilol (Carvedilol) 3.125 Mg Tablet 3.125 MG PO BID Cephalexin (Keflex) 500 Mg Capsule 500 MG PO QID Digoxin (Digoxin) 125 Mcg Tablet 125 MCG PO QAM Famotidine (Famotidine) 20 Mg Tablet 20 MG PO BIDWM Furosemide (Furosemide) 40 Mg Tablet 40 MG PO QAM Glipizide (Glipizide) 5 Mg Tablet 5 MG PO DAILYWM Hydralazine (Hydralazine) 25 Mg Tablet 25 MG PO TID Isosorbide DN (Isosorbide DN) 10 Mg Tablet 10 MG PO TID Lisinopril (Lisinopril) 20 Mg Tablet 20 MG PO QAM Lovastatin (Lovastatin) 40 Mg Tablet 40 MG PO HS Metformin (Glucophage) 1,000 Mg Tablet 1,000 MG PO BIDWM Olanzapine ODT (Olanzapine ODT) 5 Mg Tablet 5 MG PO HS Polyethylene Glycol 3350 (Polyethylene Glycol 3350) 17 Gm Powd.pack 17 GM PO QAM Potassium Chloride (Potassium Chloride) 20 Meq/15 Ml Liquid 20 MEQ PO QAM Sennosides/Docusate Sodium (Senna-Docusate Sodium Tablet) 1 Each Tablet 1 EACH PO BID Spironolactone (Spironolactone) 25 Mg Tablet 25 MG PO QAM Scheduled PRN Acetaminophen (Acetaminophen) 325 Mg Tablet 650 MG PO Q4H PRN PRN For Fever Albuterol HFA (Proair HFA) 8.5 Gm Hfa.aer.ad 6-8 PUFFS INHALATION Q2H PRN PRN For Shortness of Breath Bisacodyl (Dulcolax Rectal) 10 Mg Supp.rect 10 MG RC DAILY PRN PRN For Constipation Dextran 70/Hypromellose/Pf (Artificial Tears Drops) 1 Each Droperette 1 DROP BOTH_EYES QID PRN PRN DRY EYES Dextrose (Glucose) 4 Gm Tab.chew 4 GM PO ASDIRECTED PRN PRN HYPOGLYCEMIA Hydrocodone-Acetaminophen 10-325 mg (Hydrocodone-Acetaminophen 10-325 mg) 1 Each Tablet 1 TABLET PO Q6H PRN PRN For Pain Insulin Human Lispro (HumaLOG U100 Insulin Vial) 100 Unit/Ml Unit 3-6 UNIT SUBQ TIDWM PRN PRN HYPERGLYCEMIA Check blood sugars before meals and at bedtime. Use correction factor only before meals. Blood Sugar Lispro Correction: <151, 0 units; 151-175, 1 unit; 176-200, 2 units; 201-225, 3 units; 226-250, 4 units; 251-275, 5 units; 276-300 , 6 units; 301-325, 7 units; 326-350, 8 units; 351-375, 9 units; 376-400, 10 units; >400, 12 units. Melatonin (Melatonin) 5 Mg Tablet 5 MG PO HS PRN PRN For Insomnia Nicotine 21 mg/24 hr Patch (Nicotine 21 mg/24 hr Patch) 1 Each Patch.dysq 1 PATCH TRANSDERM DAILY PRN PRN For Withdrawal Symptoms Nystatin (Nystatin) 15 Gm Powder 1 APPLIC TP QID PRN PRN RASH Olanzapine ODT (Olanzapine ODT) 5 Mg Tablet 5 MG PO Q6H PRN PRN For Anxiety or Agitation General Time Seen by MD: 18:31 Chief Complaint Other (r foot sutures) Hx Obtained From: Patient Onset Occurred: 5 - 8 hours ago Symptom Duration: Since onset Severity: Current: No pain currently Severity: Maximum: No pain Recent Healthcare: Recent doctor visit, Recent hospitalization, Recent testing Past Medical History Past Medical History Osteomyelitis of R foot s/p trans metatarsal amputation Diabetes Mellitus Hepatitis C CAD Polysubstance abuse Systolic CHF Atrial flutter Hypertension Past Surgical History Right 2nd and 3rd toe amputations Mandible fracture surgery Hernia repair Family History Heart failure and diabetes Smoking History Current Every Day Smoker Social History Prior alcohol abuse Drug Use: Meth Other Social History: From out of town Ambulatory Status Independent Review of Systems Constitutional: Denies: Chills, Fever Musculoskeletal: Reports: Extremity pain Complete sys rev & neg: except as marked. GI: Denies: Nausea, Vomiting Physical Exam Initial Vital Signs Vital Signs (First) Date Time Temp Pulse Resp B/P Pulse Ox O2 Delivery O2 Flow Rate FiO2 08/31/16 16:30 36.8 103 24 111/73 99 Room Air Initial VS: Reviewed, Vital signs abnormal Head / Eyes: Atraumatic, Normocephalic, PERRL ENT: Mucous membranes moist, Conjunctiva normal, No scleral icterus Neck: Supple, Full range of motion Respiratory: Breath sounds normal, Clear to auscultation, No respiratory distress Abdomen / GI: Soft, Non-tender Upper Extremities: Vascular intact, Neuro intact, No swelling Skin: Warm, Dry, No cyanosis Neurologic: Alert, Oriented, Nonfocal Psychiatric: Mood/affect normal, Behavior normal, Normal thought content Lower Extremity / Pelvis / MS: Neurologic intact, Vascular intact Ankle / Foot: Neurologic intact, Vascular intact Open wound of RLE with sutures still in place. Mild surrounding erythema. No drainage. No tenderness General/Constitutional: Awake, Alert, No acute distress, Well appearing, Cooperative, Not toxic appearing Cardiovascular: Regular rhythm, Heart sounds NL, No gallop, No murmurs, No rubs Heart Rate / Rhythm: Positive: Tachycardia Interpretation & Diagnostics Lab Results Interpretation Result Diagram: 08/31/16202108/31/162021 Test 08/31/16 20:22 08/31/16 22:43 White Blood Count 11.4th/mm3 (3.8-10.1) Red Blood Count 3.30mil/mm3 (4.40-5.80) Hemoglobin 9.4g/dL (13.8-17.2) Hematocrit 29.4% (41.0-50.0) Mean Corpuscular Volume 89.1fL (81-100) Mean Corpuscular Hemoglobin 28.5pg (27.0-35.0) Mean Corpuscular Hemoglobin Concent 32.0% (32.0-37.0) Red Cell Distribution Width 16.1% (12.3-15.4) Platelet Count 298bil/L (150-400) Neutrophils (%) (Auto) 52.0% (40-74) Lymphocytes (%) (Auto) 32.0% (14-46) Monocytes (%) (Auto) 10.2% (4-12) Eosinophils (%) (Auto) 4.5% (0-5) Basophils (%) (Auto) 0.5% (0-3) Erythrocyte Sedimentation Rate 64mm/hr (0-30) Sodium Level 135mEq/L (134-144) Potassium Level 4.1mEq/L (3.5-5.2) Chloride Level 99mEq/L (97-108) Carbon Dioxide Level 24mmol/L (18-29) Blood Urea Nitrogen 20mg/dL (6-24) Creatinine 1.12mg/dL (0.76-1.27) Estimat Glomerular Filtration Rate 72mL/min (>59) Glucose Level 106mg/dL (60-99) Calcium Level 9.5mg/dL (8.5-10.1) Total Bilirubin 0.3mg/dL (0.0-1.2) Aspartate Amino Transf (AST/SGOT) 19U/L (0-50) Alanine Aminotransferase (ALT/SGPT) 11U/L (0-44) Alkaline Phosphatase 122U/L (25-150) C-Reactive Protein 0.6mg/dL (0.0-0.5) Total Protein 7.3g/dL (6.4-8.4) Albumin 3.4g/dL (3.4-5.0) Hold Gonzalez Top Tube Received (Received) Hold Urine Received (Received) X-Ray Interpretation Xray Interpretation: IMPRESSION: Slight irregularity noted along the second and third metatarsal, overall nonspecific and not considered definitive for osteomyelitis. However, osteomyelitis findings can lag behind bone scan or other imaging modalities. Dictated by: Calli Santana M.D. on 08/31/2016 at 18:44 Approved by: Calli Santana M.D. on 08/31/2016 at 18:46 X-Ray Ordered: Foot right Interpretation / Wet Read by: Interpret - Radiologist Re-Eval/Medical Decision Med Decision/Clinical Course Pt appears to be here just for f/u/recheck reasons because he left AMA after his foot amputation 2 weeks ago and when seeking f/[facility] care [facility] today he was told to come here. I examined his wound which does not show any overt signs of infection (tenderness, drainage, mal-odor, crepitous) and an xray that does not show obvious osteomyelitis, however with a small amount of periwound erthyema I would like to error on the side of caution with an antibiotic. He is prescribed keflex to take for 10 days. I reviewed the appearance of the wound with Dr. Sterling who agrees and plans to see him on Saturday next week. He can have stitches removed and have wound care set up at that time. Pt has been walking around on the leg but was instructed today at the recommendation of Dr. Sterling that he needs to be strictly nonwieghtbearing. Crutches provided today. Pt understands and agrees with f/u plan. Small rx of hydrocodone given for pain as well. Chronic anemia is again noted with labs today. Pt notes he is doing well at controlling blood sugars and his labs today appear consistent with that claim ( bg 106) Re-Evaluation/Progress : Time of Eval: 22:16 Re-Evaluation/Progress Note: Pt rechecked. Pain improved after gabapentin and hydrocodone. Consultation : Referral / Consult Name: Corwin Sterling DPM Call Returned at: 22:26 Heading Pinner: Agrees with eval, Agrees with plan Note: Case discussed with podiatry. Recommends give Keflex and have the pt f/u on Saturday. Counseled Regarding: Diagnosis, Lab results, Need for follow-up, When/why to return to ED Discharge & Departure Impression: Primary Impression: Right foot pain Additional Impressions: Post-operative pain Anemia Anemia type: unspecified type Qualified Code: D64.9 - Anemia, unspecified Leukocytosis Leukocytosis type: unspecified Qualified Code: D72.829 - Elevated white blood cell count, unspecified Disposition: Home Discharge Condition All VS Reviewed: Yes Condition: Stable Patient Instructions: Acute Wound Care (ED) Additional Instructions: Thank you for seeking care at the emergency room. It is difficult for us to make definitive diagnoses in the ED but we believe that you are experiencing post-operative pain. There does not appear to be a severe infection. There is some mild inflammation which is non-specific. We are going to have you take an antibiotic just in case. Our primary goal today in the Emergency Department was to evaluate you for any life-threatening conditions. Your evaluation was reassuring. Labs and x-ray today are reassuring. You will be discharged with a prescription for an antibiotic (Keflex). Take this as directed. I spoke with the on-call backwinder chelsey who recommended you see your backwinder on Saturday for a follow-up appointment. Please call Dr. Vaz's office to schedule an appointment. It is recommended that you remain nonweightbearing with your right leg You should return to the Emergency Department immediately if you develop fevers , vomiting, shortness of breath, lightheadedness, severe numbness of your foot, or any other concerning signs or symptoms. Thank you for letting us partake in your care today. Referrals: Deric White MD (PCP) Phoebe Vaz DPM Attestation Portions of this note were transcribed by Jerome Gomes. I, Dr. Sanchez personally performed the history, physical exam and medical decision-making; I reviewed and confirmed the accuracy of the information in the transcribed note. Signed by Claudine Sterling, 08/31/162014 copies to: Deric White MD; Phoebe Vaz DPM, Gary R DO Aug 31, 2016 18:32 JEROME GOMES Aug 31, 2016 20:05
--- NOTE | 2016-08-31 18:48 | DRSVH ---
PROCEDURE: X-RAY RIGHT FOOT COMPLETE, MINIMUM THREE VIEWS ([id number]) INDICATIONS: possible osteomyelitis TECHNIQUE: 3 views of the foot were acquired. COMPARISON: [facility], CR, XR FOOT 3VW RT, 07/30/2016, 16:03. FINDINGS: Bones: There has been amputation of all digits distal to the mid metatarsal. There is a slight appear ance irregularity noted along the distal aspect of the second and third metatarsals. Soft tissues: No tibiotalar joint effusion. Achilles tendon appears normal. IMPRESSION: Slight irregularity noted along the second and third metatarsal, overall nonspecific and not considered definitive for osteomyelitis. However, osteomyelitis findings can lag behind bone scan or other imaging modalities. Dictated by: Calli Santana M.D. on 08/31/2016 at 18:44 Approved by: Calli Santana M.D. on 08/31/2016 at 18:46
[2016-08-31 19:49] VITALS: BP 110/76; PULSE 99; RESP 20; O2SAT 99
[2016-08-31] MEDS ORDERED: HYDROcodone-APAP 10-325 mg PO ONE (20:05)
[2016-08-31 20:37] LABS: BASOPHILS % (AUTO) 0.5 % (0-3); Mean Corpuscular Volume 89.1 fL (81-100)
[2016-08-31 20:44] LABS: EOSINOPHILS % (AUTO) 4.5 % (0-5); MONOCYTES % (AUTO) 10.2 % (4-12); Mean Corpuscular Hemoglobin 28.5 pg (27.0-35.0); Platelet Count 298 bil/L (150-400)
[2016-08-31 21:11] LABS: ERYTHROCYTE SEDIMENTATION RATE 64 mm/hr (0-30)
[2016-08-31] MEDS ORDERED: CEPH-512 PO (23:51)
[2016-08-31] MEDS ORDERED: HYDR-3740 PO (23:51)
[2016-09-01 00:44] VITALS: BP 104/66; PULSE 94; RESP 16; O2SAT 94
== END 2016-09-01 01:33 | disposition home or self-care (01) ==
LOC: SED 15:59
DX: M79.671 Pain in right foot (principal); D64.9 Anemia, unspecified; G89.18 Other acute postprocedural pain; D72.829 Elevated white blood cell count, unspecified; E11.9 Type 2 diabetes mellitus without complications; I10 Essential (primary) hypertension; J45.909 Unspecified asthma, uncomplicated; F17.200 Nicotine dependence, unspecified, uncomplicated; F12.10 Cannabis abuse, uncomplicated; I25.10 Atherosclerotic heart disease of native coronary artery without angina pectoris; I50.9 Heart failure, unspecified; I48.92 Unspecified atrial flutter; F15.21 Other stimulant dependence, in remission; Z87.39 Personal history of other diseases of the musculoskeletal system and connective tissue; Z89.421 Acquired absence of other right toe(s); Z79.82 Long term (current) use of aspirin; Z79.84 Long term (current) use of oral hypoglycemic drugs; Z79.51 Long term (current) use of inhaled steroids; Z79.4 Long term (current) use of insulin; Z88.5 Allergy status to narcotic agent